=== PATIENT | female | born 1960 | race Caucasian/White ===

== ENCOUNTER 2020-04-30 06:49 | Day surgery (SDC) | payer OTHER, SELFPAY ==
[2020-04-26 09:58] VITALS: BMI 26.2
--- NOTE | 2020-04-27 12:47 | HO.ANESPROP2 ---
Documented by User: Aixa Ye 04/29/20 12:05 HPI - Anesthesia Eval Consult details Narrative: 59yo F for Colonoscopy PMFSH Past Medical History Medical History Bowel obstruction Elevated cholesterol HTN (hypertension) Surgical History Surgical History H/O colonoscopy History of cholecystectomy History of ear surgery History of laparotomy Social History Social History Smoking Status: Never smoker Advance Directives Information Provided: No Recently lost weight without trying: No Meds Allergies Allergy/AdvReac Type Severity Reaction Status Date / Time No Known Allergies Allergy Unverified 04/15/20 14:38 [No Known Allergies*] Home Medications Medication Instructions Recorded Confirmed Type amlodipine 10 mg PO DAILY 04/26/20 04/26/20 History atorvastatin 40 mg PO BEDTIME 04/26/20 04/26/20 History cetirizine 1 tab PO DAILY PRN 04/26/20 04/26/20 History cholecalciferol (vitamin D3) 25 mcg PO DAILY 04/26/20 04/26/20 History [Vitamin D3] lorazepam 1 mg PO BEDTIME PRN 04/26/20 04/26/20 History sennosides [senna] 8.6 mg PO DAILY 04/26/20 04/26/20 History tramadol 50 mg PO BID PRN 04/26/20 04/26/20 History trazodone 50 mg PO BEDTIME 04/26/20 04/26/20 History Exam Exam Date and Time: April 27, 2020 1247 Height,Weight and Vital Signs: Height 5 ft 3 in Weight 67.132 kg Pertinent Lab Results Pertinent Lab Results: 01/20/20 LYTES/BUN/CREAT/CBC = WNL 04/19/20 COVID RNA = NEG Assessment and Plan Assessment Anesthesia Assessment: Chart Reviewed (04/27/20 HT) Documented by User: Melissa Jarrell 04/30/20 08:37 [facility] Past Medical History Medical History Bowel obstruction Elevated cholesterol HTN (hypertension) Surgical History Surgical History H/O colonoscopy History of cholecystectomy History of ear surgery History of laparotomy Social History Social History Smoking Status: Never smoker Advance Directives Information Provided: No Recently lost weight without trying: No Meds Allergies Allergy/AdvReac Type Severity Reaction Status Date / Time No Known Allergies Allergy Unverified 04/15/20 14:38 [No Known Allergies*] Home Medications Medication Instructions Recorded Confirmed Type amlodipine 10 mg PO DAILY 04/26/20 04/26/20 History atorvastatin 40 mg PO BEDTIME 04/26/20 04/26/20 History cetirizine 1 tab PO DAILY PRN 04/26/20 04/26/20 History cholecalciferol (vitamin D3) 25 mcg PO DAILY 04/26/20 04/26/20 History [Vitamin D3] lorazepam 1 mg PO BEDTIME PRN 04/26/20 04/26/20 History sennosides [senna] 8.6 mg PO DAILY 04/26/20 04/26/20 History tramadol 50 mg PO BID PRN 04/26/20 04/26/20 History trazodone 50 mg PO BEDTIME 04/26/20 04/26/20 History Exam Airway Mallampati Class: II TM Dist: >3cm Neck ROM: Full Partial: Upper Heart: RRR Lungs: CTA Assessment and Plan Assessment Anesthesia Assessment: Anesthesia Plan Discussed Final Anesthetic Review NPO: Yes ASA Class: II Final Preanesthetic Review: No Changes in Pt Med Stat, Meds & Allergies Reviewed, Consent Obtained/Reviewed, Med/Surg/Anes Hx Reviewed and Anes Risks/Benef Reviewed Patient Risk: Low Procedure Risk: Low Anesthetic Plan Anesthetic Plan: MAC: Disposition: Standard PACU
[2020-04-30 06:59] VITALS: BP 116/84; PULSE 78; RESP 18; TEMP 36.1; O2SAT 97
[2020-04-30 09:30] VITALS: BP 149/92; PULSE 70; RESP 16; TEMP 36.5; O2SAT 98
--- NOTE | 2020-04-30 09:38 | PM.OP ---
Brief Operative Note Date of procedure: 04/30/20 Pre-op diagnosis: colon cancer screen Post-op diagnosis: other (normal colon) Procedure: colonoscopy Anesthesia: MAC Surgeon: Mann Loja Estimated blood loss (mL): 0 Pathology: none sent Condition: stable Disposition: PACU
[2020-04-30 09:47] VITALS: BP 150/91; PULSE 50; RESP 16; O2SAT 100
[2020-04-30 10:00] VITALS: BP 176/89; O2SAT 98
[2020-04-30 10:10] VITALS: BP 158/89; PULSE 53; RESP 16; O2SAT 99
[2020-04-30 10:15] VITALS: BP 151/81; PULSE 54; RESP 18; O2SAT 98
--- NOTE | 2020-04-30 10:49 | HO.POSTANES ---
Post Anesthesia Evaluation Post Anesthesia Evaluation Vital Signs: Vital Signs Temp Pulse Resp BP Pulse Ox 04/30/20 10:15 54 18 151/81 H 98 04/30/20 10:10 53 16 158/89 H 99 04/30/20 10:00 176/89 H 98 04/30/20 09:47 50 16 150/91 H 100 04/30/20 09:30 97.7 F 70 16 149/92 H 98 04/30/20 06:59 97 F 78 18 116/84 97 Anesthesia: Monitored Mental Status: Awake Pain Control: Satisfactory Nausea/Vomiting: None Hydration: Adequate Anesthesia-Related Issues: No Anes. Related Issues
--- NOTE | 2020-04-30 11:29 | OP_ITS ---
SURGEON: Mann Loja MD INDICATIONS: The patient is a 59-year-old female, here for colonoscopy for screening.. She understood the technique of the procedure. She was aware of the risks, benefits, and alternatives. PREOPERATIVE DIAGNOSIS: POSTOPERATIVE DIAGNOSIS: PROCEDURE PERFORMED: ESTIMATED BLOOD LOSS: COMPLICATIONS: ANESTHESIA: ASSISTANTS: SPECIMENS: DESCRIPTION OF PROCEDURE: She was brought to the operating room and placed in left lateral decubitus position under monitored anesthesia care. A full digital rectal exam was done. There were no palpable anal canal lesions. The tip of the Olympus colonoscope was introduced gently through the anal orifice and advanced with insufflation all the way to the cecum. The cecum was intubated. The cecum was identified by visualization of the ileocecal valve as well as the appendiceal orifice. The cecal mucosa unremarkable. The scope was gradually withdrawn and careful examination of the entire colonic mucosa being done with scope withdrawal. The patient unfortunately had significant amounts of watery stools scattered periodically throughout the colon. We had to copiously irrigate and suctioned out the irrigant fluid. However, the prep was actually better in the right colon and transverse colon. It was unlikely that any significant size lesion was missed. There was pool of liquid stool in the rectum and we had to spend a long time irrigating this and suctioned out the irrigant fluid to achieve good visualization. Again, there were no lesions seen. There were no polyps. The rectum and anal canal were unremarkable. The scope was then withdrawn completely with de-sufflation. The patient tolerated procedure well. There were no complications noted. However, because of her suboptimal bowel prep, I would recommend another colonoscopy in the next 5 years. MD MAYE Martinez/ROSENDAL / [phone]
== END 2020-04-30 10:51 | disposition home or self-care (01) ==
PROVIDERS: PCP Internal Medicine; Visit Provider Surgery
PROC: 0DJD8ZZ Inspection of Lower Intestinal Tract, Via Natural or Artificial Opening Endoscopic (ICD-10-PCS; CPT 45378; principal; 2020-04-30 08:00)
DX: Z12.11 Encounter for screening for malignant neoplasm of colon (principal); I10 Essential (primary) hypertension; E78.5 Hyperlipidemia, unspecified; Z79.899 Other long term (current) drug therapy; Z90.49 Acquired absence of other specified parts of digestive tract
CPT/HCPCS: 45378

== ENCOUNTER → 2020-05-12 11:39 | Outpatient (BNVA) | payer OTHER, SELFPAY | PROVIDERS: PCP Internal Medicine; Referring Provider Internal Medicine; Visit Provider Surgery | DX: Z98.890 Other specified postprocedural states (principal) | CPT/HCPCS: 99212 ==

== ENCOUNTER 2020-06-01 05:58 | Outpatient (REF) | payer OTHER, SELFPAY ==
[2020-06-01 06:51] LABS: MANUAL DIFF FLAG NO
[2020-06-01 06:52] LABS: Basophils Percent Auto 0.5 % (0-2); Eosinophils Absolute Auto 0.1 X10*3/uL (0.0-0.4); Eosinophils Percent Auto 2.1 % (0-4); Hematocrit 42.1 % (37-47); Hemoglobin 13.8 g/dl (12.0-16.0); Imm Gran Abs Auto 0.01 X10*3/uL (0.00-0.03); Imm Gran Pct Auto 0.2 % (0.0-0.4); Lymphocytes Absolute Auto 1.8 X10*3/uL (1.2-4.9); Lymphocytes Percent Auto 31.5 % (20-40); Mean Corpuscular HGB Conc 32.8 g/dl (31.0-35.0); Mean Corpuscular Hemoglobin 29.3 pg (27.0-33.0); Mean Corpuscular Volume 89.4 fL (80-98); Mean Platelet Volume 9.8 fL (9.4-12.3); Monocytes Absolute Auto 0.5 X10*3/uL (0.1-1.2); Monocytes Percent Auto 9.5 % (2-11); Neutrophils Absolute Auto 3.2 X10*3/uL (2.0-8.3); Neutrophils Percent Auto 56.2 % (45-73); Platelet Count 290 X10*3/uL (160-400); Red Blood Count 4.71 X10*6/uL (4.20-5.50); Red Cell Distribution Width 15.3 % (11.0-16.0); White Blood Count 5.7 X10*3/uL (4.8-10.8)
[2020-06-01 07:01] LABS: Glucose Urine UA NEG (NEG); Leukocyte Esterase Urine 2+ (NEG); Nitrite Urine NEG (NEG); Specific Gravity - Urine 1.025 (1.005-1.025); Urine Blood TRACE (NEG); Urine Ketones NEG (NEG); Urine Protein NEG (NEG-TRACE)
[2020-06-01 07:09] LABS: Appearance Urine HAZY; Color Urine YELLOW
[2020-06-01 07:16] LABS: Bacteria Urine 1+ /LPF; Mucus Urine 1+ /LPF; Renal Epithelial Cells Urine 1+ /LPF; Squamous Epithelial Cell Urine 2+ /LPF
[2020-06-01 07:42] LABS: Vitamin D 25-OH Total 44.5 ng/mL (>30)
[2020-06-01 07:43] LABS: Alanine Aminotransferase 18 U/L (0-31); Albumin Level 4.2 g/dL (3.5-5.0); Alkaline Phosphatase 97 U/L (39-117); Amylase 177 U/L (28-100); Anion Gap 11 (12-20); Aspartate Amino Transferase 18 U/L (5-31); Bilirubin Total 0.6 mg/dL (0.0-1.0); Blood Urea Nitrogen 16 mg/dL (9-16); Calcium 8.6 mg/dL (8.4-10.2); Carbon Dioxide 27 mmol/L (22-29); Chloride 108 mmol/L (96-108); Cholesterol 158 mg/dL; Estimated Glomerular Filt Rate > 60; Glucose Fasting 88 mg/dL (60-99); HDL Cholesterol 57 mg/dL; LDL Cholesterol Calculated 93 mg/dl; Potassium 4.6 mmol/l (3.3-5.1); Sodium 141 mmol/L (135-145); Total Protein 6.9 g/dL (6.5-8.0); Triglycerides 41 mg/dL
== END 2020-06-01 05:59 | disposition home or self-care (01) ==
LOC: HO.LAB 05:58
PROVIDERS: PCP Internal Medicine; Visit Provider Internal Medicine
DX: E78.5 Hyperlipidemia, unspecified (principal); I10 Essential (primary) hypertension; L29.9 Pruritus, unspecified; R79.89 Other specified abnormal findings of blood chemistry; R74.8 Abnormal levels of other serum enzymes; K59.00 Constipation, unspecified; N39.0 Urinary tract infection, site not specified; E55.9 Vitamin D deficiency, unspecified
CPT/HCPCS: 36415; 80053; 80061; 81001; 82150; 82306; 85025; 87086

== ENCOUNTER 2020-08-04 13:59 | Outpatient (REF) | payer OTHER, SELFPAY ==
--- NOTE | 2020-08-04 14:01 | US_ITS ---
EXAMINATION: US RETROPERITONEAL LIMITED (RENAL ONLY) CLINICAL INFORMATION: Pyuria. COMPARISON: Ultrasound abdomen complete 12/11/2012. TECHNIQUE: Real-time imaging of the kidneys. FINDINGS: RIGHT KIDNEY: 9.4x 5.6 x 5.4 cm (SAG x AP x TRV). The kidney is normal in size, contour, and echogenicity. Renal cortical thickness is normal. There are multiple at least 6 right renal cysts. The largest cysts are in the upper pole and measures 4.1 x 3.5 x 4 cm and 3.1 x 3.5 x 3.8 cm in the midpole. This appears increased in size from November 2012 ultrasound. No renal calculi or hydronephrosis. LEFT KIDNEY: 10.6 x 5.0 x 4.4 cm (SAG x AP x TRV). The kidney is normal in size, contour, and echogenicity. Renal cortical thickness is normal. There is a 1.3 x 1.3 x 1.6 cm cyst in the midpole. No renal calculi or hydronephrosis. US/US renal BI IMPRESSION: Bilateral renal cysts, right greater than left. No stone or hydronephrosis seen.
== END 2020-08-04 14:00 | disposition home or self-care (01) ==
LOC: HO.US 13:59
PROVIDERS: PCP Internal Medicine; Visit Provider Internal Medicine
DX: R82.81 Pyuria (principal); R31.21 Asymptomatic microscopic hematuria
CPT/HCPCS: 76775

== ENCOUNTER 2020-09-01 05:59 | Outpatient (REF) | payer OTHER, SELFPAY ==
[2020-09-01 07:08] LABS: MANUAL DIFF FLAG NO
[2020-09-01 07:09] LABS: Glucose Urine UA NEG (NEG); Leukocyte Esterase Urine 3+ (NEG); Nitrite Urine NEG (NEG); Specific Gravity - Urine 1.025 (1.005-1.025); UACC Culture Trigger YES; Urine Blood TRACE (NEG); Urine Ketones NEG (NEG); Urine Protein NEG (NEG-TRACE)
[2020-09-01 07:10] LABS: Appearance Urine CLOUDY; Color Urine YELLOW
[2020-09-01 07:11] LABS: Basophils Percent Auto 0.6 % (0-2); Eosinophils Absolute Auto 0.2 X10*3/uL (0.0-0.4); Eosinophils Percent Auto 2.6 % (0-4); Hematocrit 43.3 % (37-47); Hemoglobin 14.2 g/dl (12.0-16.0); Imm Gran Abs Auto 0.01 X10*3/uL (0.00-0.03); Imm Gran Pct Auto 0.2 % (0.0-0.4); Lymphocytes Absolute Auto 2.4 X10*3/uL (1.2-4.9); Lymphocytes Percent Auto 38.9 % (20-40); Mean Corpuscular HGB Conc 32.8 g/dl (31.0-35.0); Mean Corpuscular Hemoglobin 28.8 pg (27.0-33.0); Mean Corpuscular Volume 87.8 fL (80-98); Mean Platelet Volume 10.4 fL (9.4-12.3); Monocytes Absolute Auto 0.5 X10*3/uL (0.1-1.2); Monocytes Percent Auto 8.6 % (2-11); Neutrophils Percent Auto 49.1 % (45-73); Platelet Count 306 X10*3/uL (160-400); Red Blood Count 4.93 X10*6/uL (4.20-5.50); Red Cell Distribution Width 14.8 % (11.0-16.0); White Blood Count 6.2 X10*3/uL (4.8-10.8)
[2020-09-01 07:20] LABS: Bacteria Urine 2+ /LPF; Mucus Urine 1+ /LPF; RBC Urine 0-2 /HPF (0); Squamous Epithelial Cell Urine 2+ /LPF
[2020-09-01 07:36] LABS: Alanine Aminotransferase 22 U/L (0-31); Albumin Level 4.4 g/dL (3.5-5.0); Alkaline Phosphatase 117 U/L (39-117); Amylase 347 U/L (28-100); Anion Gap 12 (12-20); Aspartate Amino Transferase 20 U/L (5-31); Bilirubin Total 0.8 mg/dL (0.0-1.0); Blood Urea Nitrogen 11 mg/dL (9-16); Calcium 9.4 mg/dL (8.4-10.2); Carbon Dioxide 28 mmol/L (22-29); Chloride 106 mmol/L (96-108); Cholesterol 158 mg/dL; Estimated Glomerular Filt Rate > 60; Glucose Fasting 84 mg/dL (60-99); HDL Cholesterol 52 mg/dL; LDL Cholesterol Calculated 96 mg/dl; Potassium 4.6 mmol/L (3.3-5.1); Sodium 141 mmol/L (135-145); Total Protein 7.3 g/dL (6.5-8.0); Triglycerides 53 mg/dL
[2020-09-01 07:56] LABS: TSH reflex Free T4 1.63 uIU/mL (0.32-4.0); Vitamin D 25-OH Total 40.2 ng/mL (>30)
== END 2020-09-01 06:00 | disposition home or self-care (01) ==
LOC: HO.LAB 05:59
PROVIDERS: Visit Provider Internal Medicine
DX: I10 Essential (primary) hypertension (principal); R74.8 Abnormal levels of other serum enzymes; L29.9 Pruritus, unspecified; K58.9 Irritable bowel syndrome, unspecified; R31.21 Asymptomatic microscopic hematuria; E78.00 Pure hypercholesterolemia, unspecified; E66.3 Overweight; I87.2 Venous insufficiency (chronic) (peripheral); E55.9 Vitamin D deficiency, unspecified; R79.89 Other specified abnormal findings of blood chemistry
CPT/HCPCS: 36415; 80053; 80061; 81001; 81003; 82150; 82306; 84443; 85025; 87086

== ENCOUNTER 2020-11-15 09:31 | Outpatient (REF) | payer OTHER, SELFPAY ==
[2020-11-15 09:52] LABS: COVID-19 Test Negative (Negative); IDNOW Serial# 55D5AD1C
== END 2020-11-15 09:32 | disposition home or self-care (01) ==
LOC: HO.LAB 09:31
PROVIDERS: Visit Provider Internal Medicine
DX: Z20.822 Contact with and (suspected) exposure to COVID-19 (principal)
CPT/HCPCS: 36415; 87635; C9803

== ENCOUNTER 2021-02-01 08:49 | Outpatient (REF) | payer OTHER, SELFPAY ==
--- NOTE | ~2021-02-01 | MM_ITS ---
EXAMINATION: MM SCREENING DIGITAL BREAST TOMOSYNTHESIS, BILATERAL CLINICAL INFORMATION: Screening. Asymptomatic. The lifetime risk of breast cancer based on the Tyrer-Cuzick Model is 4.6%. COMPARISON: Mammography: January 30, 2020 and studies dating back to November 27, 2015 TECHNIQUE: Digital breast tomosynthesis is performed in both the craniocaudal and mediolateral oblique views along with computer-aided detection (CAD). Synthesized 2D images are generated from the tomosynthesis. FINDINGS: The breasts are heterogeneously dense, which may obscure small masses (ACR BI-RADS breast composition Category c). There are no significant masses, abnormal calcifications, or other abnormalities. MM/MM tomosynthesis screening BI IMPRESSION: There are no significant changes from prior study. ASSESSMENT: BI-RADS 1: Negative RECOMMENDATION: Routine annual mammography screening. This patient's information was entered into a reminder system with a target due date for their next mammogram.
== END 2021-02-01 08:50 | disposition home or self-care (01) ==
LOC: HO.MAMMO 08:49
PROVIDERS: PCP Internal Medicine; Visit Provider Internal Medicine
DX: Z12.31 Encounter for screening mammogram for malignant neoplasm of breast (principal)
CPT/HCPCS: 77063; 77067

== ENCOUNTER 2021-03-07 05:57 | Outpatient (REF) | payer OTHER, SELFPAY ==
[2021-03-07 06:35] LABS: MANUAL DIFF FLAG NO
[2021-03-07 06:46] LABS: Basophils Percent Auto 0.6 % (0-2); Eosinophils Absolute Auto 0.2 X10*3/uL (0.0-0.4); Eosinophils Percent Auto 2.4 % (0-4); Hematocrit 41.8 % (37-47); Hemoglobin 13.7 g/dl (12.0-16.0); Imm Gran Abs Auto 0.02 X10*3/uL (0.00-0.03); Imm Gran Pct Auto 0.3 % (0.0-0.4); Lymphocytes Absolute Auto 2.2 X10*3/uL (1.2-4.9); Lymphocytes Percent Auto 35.1 % (20-40); Mean Corpuscular HGB Conc 32.8 g/dl (31.0-35.0); Mean Corpuscular Volume 88.6 fL (80-98); Mean Platelet Volume 9.8 fL (9.4-12.3); Monocytes Absolute Auto 0.6 X10*3/uL (0.1-1.2); Monocytes Percent Auto 9.4 % (2-11); Neutrophils Absolute Auto 3.2 X10*3/uL (2.0-8.3); Neutrophils Percent Auto 52.2 % (45-73); Platelet Count 318 X10*3/uL (160-400); Red Blood Count 4.72 X10*6/uL (4.20-5.50); Red Cell Distribution Width 14.9 % (11.0-16.0); White Blood Count 6.2 X10*3/uL (4.8-10.8)
[2021-03-07 07:07] LABS: Alanine Aminotransferase 24 U/L (0-31); Albumin Level 4.4 g/dL (3.5-5.0); Alkaline Phosphatase 115 U/L (39-117); Amylase 182 U/L (28-100); Anion Gap 13 (12-20); Aspartate Amino Transferase 20 U/L (5-31); Bilirubin Total 0.2 mg/dL (0.0-1.0); Blood Urea Nitrogen 12 mg/dL (9-16); Calcium 9.6 mg/dL (8.4-10.2); Carbon Dioxide 27 mmol/L (22-29); Chloride 106 mmol/L (96-108); Cholesterol 163 mg/dL; Estimated Glomerular Filt Rate > 60; Glucose Fasting 90 mg/dL (60-99); HDL Cholesterol 51 mg/dL; LDL Cholesterol Calculated 100 mg/dl; Potassium 4.4 mmol/L (3.3-5.1); Sodium 142 mmol/L (135-145); Total Protein 7.2 g/dL (6.5-8.0); Triglycerides 61 mg/dL
[2021-03-07 07:28] LABS: TSH reflex Free T4 1.17 uIU/mL (0.32-4.0); Vitamin D 25-OH Total 48.9 ng/mL (>30)
[2021-03-07 10:03] LABS: Glucose Urine UA NEG (NEG); Leukocyte Esterase Urine 2+ (NEG); Nitrite Urine NEG (NEG); UACC Culture Trigger YES; Urine Blood NEG (NEG); Urine Ketones NEG (NEG); Urine Protein NEG (NEG-TRACE)
[2021-03-07 10:06] LABS: Appearance Urine HAZY; Color Urine YELLOW
[2021-03-07 10:51] LABS: Bacteria Urine 1+ /LPF; Mucus Urine 1+ /LPF; RBC Urine 0 /HPF (0); Renal Epithelial Cells Urine TRACE /LPF; Squamous Epithelial Cell Urine 2+ /LPF
== END 2021-03-07 05:58 | disposition home or self-care (01) ==
LOC: HO.LAB 05:57
PROVIDERS: PCP Internal Medicine; Visit Provider Internal Medicine
DX: I10 Essential (primary) hypertension (principal); K58.9 Irritable bowel syndrome, unspecified; K59.00 Constipation, unspecified; L29.9 Pruritus, unspecified; R31.21 Asymptomatic microscopic hematuria; E78.00 Pure hypercholesterolemia, unspecified; R79.89 Other specified abnormal findings of blood chemistry; E55.9 Vitamin D deficiency, unspecified; E66.3 Overweight; R74.8 Abnormal levels of other serum enzymes
CPT/HCPCS: 36415; 80053; 80061; 81001; 81003; 82150; 82306; 84443; 85025; 87086

== ENCOUNTER 2021-05-12 09:17 | Outpatient (REF) | payer OTHER, SELFPAY ==
[2021-05-17 17:12] LABS: HPV mRNA E6/E7 rflx Not Detected (Not Detected)
== END 2021-05-12 09:18 | disposition home or self-care (01) ==
LOC: HO.LAB 09:17
PROVIDERS: Visit Provider Obstetrics & Gynecology
DX: Z01.419 Encounter for gynecological examination (general) (routine) without abnormal findings (principal); Z11.51 Encounter for screening for human papillomavirus (HPV)
CPT/HCPCS: 87624; 88142

== ENCOUNTER 2021-08-17 09:09 | Outpatient (REF) | payer OTHER, SELFPAY ==
--- NOTE | ~2021-08-17 | MM_ITS ---
EXAMINATION: BONE DENSITOMETRY CLINICAL INDICATION: Osteopenia. COMPARISON: Baseline BD dated 12/01/2016. TECHNIQUE: Using a Contorion DXA System (software version: 13.1) manufactured by [employer], dual-energy x-ray absorptiometry was performed of the lumbar spine and left hip. The images are of good technical quality. Summary results are attached. FINDINGS: AP SPINE L1-L4: Current: BMD 0.977 g/cm2, Z-score -0.3, T-score -1.7, osteopenia, 2.5% decrease from baseline (<5% change is not significant). Baseline: BMD 1.002 g/cm2. LEFT FEMUR, NECK: Current: BMD 0.781 g/cm2, Z-score -0.5, T-score -1.8, osteopenia. Baseline: BMD 0.924 g/cm2. LEFT FEMUR, TOTAL: Current: BMD 0.852 g/cm2, Z-score -0.2, T-score -1.2, osteopenia, 8.0% decrease from baseline (<5% change is not significant). Baseline: BMD 0.926 g/cm2. IDENTIFIED RISK FACTORS: Early menopause, low calcium intake, secondary osteoporosis. HISTORY OF FRACTURE: None listed. MEDICATIONS: Calcium, vitamin D. MM/XR DEXA axial skeleton IMPRESSION: 1. DIAGNOSIS: Osteopenia based on the lowest T-score value of -1.8 in the femoral neck applying World Health Organization criteria. 2. 10-YEAR FRACTURE RISK PREDICTION, FRAX: Major osteoporotic fracture (clinical spine, forearm, hip or shoulder) 5.4%. Hip fracture 0.6%. 3. Treatment Recommendations: NOF guidelines recommend consideration for treatment in postmenopausal women and men age 50 and older presenting with the following: -A hip or vertebral (clinical or morphometric) fracture. -T-score less than or equal to -2.5 at the femoral neck or spine after appropriate evaluation to exclude secondary causes. -Low bone mass at the hip or spine and a 10-year fracture probability by FRAX of greater than or equal to 3% for hip fracture or greater than or equal to 20% for major osteoporotic fracture based on the [place] adapted WHO algorithm. 4. Other Recommendations: All treatment decisions require clinical judgment and consideration of individual patient factors, including patient preferences, comorbidities, previous drug use, risk factors not captured in the FRAX model (e.g. frailty, falls, vitamin D deficiency, increased bone turnover, interval significant decline in bone density) and possible under or overestimation of fracture risk by FRAX. Additional medical evaluation for secondary cause of low bone mineral density may be appropriate. FUTURE SCAN RECOMMENDATION: People with diagnosed cases of osteoporosis or at high risk for fracture should have regular bone mineral density tests. For patients eligible for Medicare, routine testing is allowed once every 2 years. The testing frequency can be increased to one year for patients who have rapidly progressing disease, those who are receiving or discontinuing medical therapy to restore bone mass, or have additional risk factors.
== END 2021-08-17 09:10 | disposition home or self-care (01) ==
LOC: HO.MAMMO 09:09
PROVIDERS: PCP Internal Medicine; Visit Provider Internal Medicine
DX: Z13.820 Encounter for screening for osteoporosis (principal); M85.80 Other specified disorders of bone density and structure, unspecified site; N95.1 Menopausal and female climacteric states; Z79.899 Other long term (current) drug therapy
CPT/HCPCS: 77080

== ENCOUNTER 2021-11-11 05:56 | Outpatient (REF) | payer OTHER, SELFPAY ==
[2021-11-11 06:09] LABS: MANUAL DIFF FLAG NO
[2021-11-11 07:30] LABS: Basophils Percent Auto 0.5 % (0-2); Eosinophils Absolute Auto 0.2 X10*3/uL (0.0-0.4); Eosinophils Percent Auto 3.7 % (0-4); Hematocrit 43.4 % (37.0-47.0); Hemoglobin 14.2 g/dl (12.0-16.0); Imm Gran Abs Auto 0.01 X10*3/uL (0.00-0.03); Imm Gran Pct Auto 0.2 % (0.0-0.4); Lymphocytes Percent Auto 32.6 % (20-40); Mean Corpuscular HGB Conc 32.7 g/dl (31.0-35.0); Mean Corpuscular Hemoglobin 28.6 pg (27.0-33.0); Mean Corpuscular Volume 87.5 fL (80.0-98.0); Mean Platelet Volume 9.8 fL (9.4-12.3); Monocytes Absolute Auto 0.6 X10*3/uL (0.1-1.2); Neutrophils Absolute Auto 3.3 x10*3/uL (2.0-8.3); Platelet Count 344 X10*3/uL (160-400); Red Blood Count 4.96 X10*6/uL (4.20-5.50); Red Cell Distribution Width 15.3 % (11.0-16.0); White Blood Count 6.2 X10*3/uL (4.8-10.8)
[2021-11-11 07:31] LABS: Appearance Urine CLEAR; Color Urine YELLOW; Glucose Urine UA NEG (NEG); Leukocyte Esterase Urine 2+ (NEG); Nitrite Urine NEG (NEG); UACC Culture Trigger YES; Urine Blood NEG (NEG); Urine Ketones NEG (NEG); Urine Protein NEG (NEG-TRACE)
[2021-11-11 08:00] LABS: Alanine Aminotransferase 62 U/L (0-31); Albumin Level 4.4 g/dL (3.5-5.0); Alkaline Phosphatase 166 U/L (39-117); Anion Gap 13 (12-20); Aspartate Amino Transferase 36 U/L (5-31); Bilirubin Total 0.4 mg/dL (0.0-1.0); Blood Urea Nitrogen 18 mg/dL (9-16); Calcium 9.6 mg/dL (8.4-10.2); Carbon Dioxide 26 mmol/L (22-29); Chloride 105 mmol/L (96-108); Cholesterol 204 mg/dL; Estimated Glomerular Filt Rate > 60; Glucose Fasting 90 mg/dL (60-99); HDL Cholesterol 53 mg/dL; LDL Cholesterol Calculated 140 mg/dl; Potassium 4.5 mmol/L (3.3-5.1); Sodium 139 mmol/L (135-145); Total Protein 7.5 g/dL (6.5-8.0); Triglycerides 55 mg/dL
[2021-11-11 08:07] LABS: Amylase 440 U/L (28-100); TSH reflex Free T4 1.15 uIU/mL (0.32-4.0); Vitamin D 25-OH Total 43.5 ng/mL (>30)
[2021-11-11 08:08] LABS: Bacteria Urine 1+ /LPF; RBC Urine 0 /HPF (0); Squamous Epithelial Cell Urine 2+ /LPF
== END 2021-11-11 05:57 | disposition home or self-care (01) ==
LOC: HO.LAB 05:56
PROVIDERS: PCP Internal Medicine; Visit Provider Internal Medicine
DX: E78.00 Pure hypercholesterolemia, unspecified (principal); E55.9 Vitamin D deficiency, unspecified; N18.30 Chronic kidney disease, stage 3 unspecified; R74.8 Abnormal levels of other serum enzymes
CPT/HCPCS: 36415; 80053; 80061; 81001; 82150; 82306; 84443; 85025; 87086

== ENCOUNTER 2022-01-13 07:30 | Outpatient (REF) | payer OTHER, SELFPAY ==
--- NOTE | ~2022-01-13 | US_ITS ---
EXAMINATION: US ABDOMEN COMPLETE CLINICAL INFORMATION: Elevated LFTs. COMPARISON: Renal ultrasound 08/04/2020. Ultrasound abdomen complete 12/11/2012. TECHNIQUE: Real-time imaging of the abdominal viscera. FINDINGS: PANCREAS: Normal in size and contour and echogenicity. No pancreatic ductal tension. No retroperitoneal effusion. ABDOMINAL AORTA: The proximal, mid, and distal segments are normal in caliber. INFERIOR VENA CAVA: Visualized portions are normal. LIVER: Liver is smooth in contour, normal in size, and uniform in echogenicity. No focal hepatic parenchymal lesion. No intrahepatic biliary ductal dilatation. GALLBLADDER: Surgically absent. COMMON BILE DUCT: Normal in caliber measuring 0.7 cm in diameter. No ductal calculus or sludge. RIGHT KIDNEY: 10.3 cm in length. No hydronephrosis or visible calculi. Normal parenchymal thickness and echogenicity. There are multiple simple cysts again seen largest upper pole 4.8 cm and interpolar 3.2 cm. No additional imaging follow-up required. LEFT KIDNEY: 10.2 cm in length. No hydronephrosis or visible calculi. Normal parenchymal thickness and echogenicity. Interpolar simple cyst again seen measuring approximately 1.6 cm. No additional imaging follow-up required. SPLEEN: Normal. The spleen measures 8.8 cm in maximum dimension. FREE FLUID: None. US/US abdomen complete IMPRESSION: -Prior cholecystectomy. No ductal dilatation. -Liver, pancreas, spleen normal. No hydronephrosis.
== END 2022-01-13 07:31 | disposition home or self-care (01) ==
LOC: HO.US 07:30
PROVIDERS: PCP Internal Medicine; Visit Provider Internal Medicine
DX: R79.89 Other specified abnormal findings of blood chemistry (principal)
CPT/HCPCS: 76700

== ENCOUNTER 2022-02-03 10:35 | Outpatient (REF) | payer OTHER, SELFPAY ==
--- NOTE | ~2022-02-03 | MM_ITS ---
EXAMINATION: MM SCREENING DIGITAL BREAST TOMOSYNTHESIS, BILATERAL CLINICAL INFORMATION: Screening. Asymptomatic. The lifetime risk of breast cancer based on the Tyrer-Cuzick Model is 6%. COMPARISON: Mammography: 02/01/2021, 01/30/2020, 01/27/2020, 01/21/2019 TECHNIQUE: Digital breast tomosynthesis is performed in both the craniocaudal and mediolateral oblique views along with computer-aided detection (CAD). Synthesized 2D images are generated from the tomosynthesis. FINDINGS: The breasts are heterogeneously dense, which may obscure small masses (ACR BI-RADS breast composition Category c). There are no significant masses, abnormal calcifications, or other abnormalities. Parenchymal pattern is similar to prior studies. The axilla and skin contours are unremarkable. No significant changes. MM/MM tomosynthesis screening BI IMPRESSION: No mammographic evidence of malignancy. ASSESSMENT: BI-RADS 1: Negative RECOMMENDATION: Routine annual mammography screening. This patient's information was entered into a reminder system with a target due date for their next mammogram.
== END 2022-02-03 10:36 | disposition home or self-care (01) ==
LOC: HO.MAMMO 10:35
PROVIDERS: Visit Provider Internal Medicine
DX: Z12.31 Encounter for screening mammogram for malignant neoplasm of breast (principal)
CPT/HCPCS: 77063; 77067

== ENCOUNTER 2022-03-16 21:53 | Emergency (ER) | payer OTHER, SELFPAY ==
[2022-03-16 22:11] VITALS: BP 103/75; PULSE 77; RESP 18; TEMP 36.9; O2SAT 97; BMI 24.7
[2022-03-16 22:34] LABS: MANUAL DIFF FLAG NO
[2022-03-16 22:35] LABS: Basophils Percent Auto 0.3 % (0-2); Eosinophils Absolute Auto 0.1 X10*3/uL (0.0-0.4); Eosinophils Percent Auto 1.3 % (0-4); Hematocrit 41.6 % (37.0-47.0); Imm Gran Abs Auto 0.02 X10*3/uL (0.00-0.03); Imm Gran Pct Auto 0.3 % (0.0-0.4); Lymphocytes Absolute Auto 1.5 X10*3/uL (1.2-4.9); Lymphocytes Percent Auto 21.6 % (20-40); Mean Corpuscular HGB Conc 33.7 g/dl (31.0-35.0); Mean Corpuscular Hemoglobin 28.7 pg (27.0-33.0); Mean Corpuscular Volume 85.2 fL (80.0-98.0); Mean Platelet Volume 9.2 fL (9.4-12.3); Monocytes Absolute Auto 0.9 X10*3/uL (0.1-1.2); Monocytes Percent Auto 13.9 % (2-11); Neutrophils Absolute Auto 4.2 x10*3/uL (2.0-8.3); Neutrophils Percent Auto 62.6 % (45-73); Platelet Count 270 X10*3/uL (160-400); Red Blood Count 4.88 X10*6/uL (4.20-5.50); Red Cell Distribution Width 15.9 % (11.0-16.0); White Blood Count 6.8 X10*3/uL (4.8-10.8)
[2022-03-16 22:50] LABS: COVID-19 Test Positive (Negative); IDNOW Serial# 16C4AD1C
[2022-03-16 22:54] LABS: Anion Gap 15 (12-20); Blood Urea Nitrogen 12 mg/dL (9-16); Calcium 8.7 mg/dL (8.4-10.2); Carbon Dioxide 24 mmol/L (22-29); Chloride 105 mmol/L (96-108); Estimated Glomerular Filt Rate > 60; Glucose Random 99 mg/dL (60-115); Potassium 3.5 mmol/L (3.3-5.1); Sodium 140 mmol/L (135-145)
--- NOTE | 2022-03-16 22:55 | ED_ITS ---
HPI - General Adult General Chief complaint: Headache Stated complaint: Headache Time Seen by Provider: 03/16/22 22:53 Source: patient Mode of arrival: ambulatory Limitations: no limitations History of Present Illness HPI narrative: This is a 61-year-old female history of depression, migraine headache, central hypertension presenting to the emergency department with sudden onset body aches, fatigue, malaise, subjective fevers and chills, headache which feels like her typical without vision changes, dizziness head trauma, facial congestion x2 days. Denies sick contacts. Vaccinated with 3 COVID shots. Denies chest pain, shortness of breath, nausea, vomiting, abdominal pain, vision changes, dizziness or weakness. Related Data Previous Rx's Medication Instructions Recorded triamcinolone acetonide 0.5 % 1 appl topical BID 14 days #15 06/02/21 topical cream grams trazodone 50 mg tablet 50 mg PO BEDTIME PRN for insomnia 10/11/21 #90 tabs ergocalciferol (vitamin D2) 1,250 1,250 mcg PO QWEEK #5 caps 01/09/22 mcg (50,000 unit) capsule amlodipine 10 mg tablet 10 mg PO DAILY #90 tabs 01/10/22 atorvastatin 40 mg tablet 40 mg PO BEDTIME 90 days #90 tabs 01/16/22 clotrimazole-betamethasone 1 1 appl topical BID 2 weeks #45 01/16/22 %-0.05 % topical cream grams Allergies Allergy/AdvReac Type Severity Reaction Status Date / Time No Known Allergies Allergy Verified 03/16/22 22:11 [No Known Allergies*] Review of Systems Review of Systems: Constitutional : No Weight loss, + Fever, + Chills, + Fatigue, + Malaise ENT/Mouth : No sore throat, No Rhinorrhea, + congestion Eyes: No Eye Pain, No Swelling, No Redness Cardiovascular : No Chest Pain, No SOB, No Dyspnea on Exertion, No Orthopnea, No Edema, No Palpitations Respiratory : No Cough, No Sputum, No Wheezing Gastrointestinal : No Nausea, No Vomiting, No Diarrhea, No Constipation, No abdominal Pain, No Hematochezia, No Melena Genitourinary : No Dysuria, No Urinary Frequency, No Hematuria, Musculoskeletal : No joint pain, No Myalgias, No Joint Swelling Skin : No Skin Lesions, No rash Neuro : No Weakness, No Numbness, No Dizziness, + Headache Psych : No Anxiety/Panic, No Depression All other systems reviewed and are negative Yes all other systems are reviewed and are negative [facility] Past Medical History Attestation statement: The following information was validated with the patient. Source: old records reviewed and nursing notes reviewed Medical History ASCUS of cervix with negative high risk HPV Asymptomatic microscopic hematuria Benign essential hypertension Bowel obstruction Calcaneal spur Carpal tunnel syndrome of right wrist Colon cancer screening Constipation Degenerative arthritis of right knee Depression Edema of lower extremity due to peripheral venous insufficiency Elevated cholesterol Elevated LFTs Generalized pruritus HTN (hypertension) Hyperamylasemia Insomnia Irritable bowel syndrome Migraine Osteopenia Overweight (BMI 25.0-29.9) Pure hypercholesterolemia Pyuria Tinea corporis Vitamin D deficiency Surgical History H/O colonoscopy (~07/26/10) History of cholecystectomy History of ear surgery History of laparotomy History of tubal ligation Family History Family History Father Medical history unknown Mother Hypertension Son No problems noted. Social History Social History Housing: House Alcohol intake: never Patient Tobacco Use Status: Never used Tobacco e-Cigarette/Vaping Use: Never Used Second Hand Smoke Exposure: No service: No Current occupational status: retired Cognitive needs: No Hearing needs: No Vision needs: Yes Physical Exam ED Vital Signs: Vital Signs - 24 hr 03/16/22 22:11 Temperature 98.4 F Pulse Rate 77 Respiratory Rate 18 Blood Pressure 103/75 Pulse Oximetry 97 Oxygen Delivery Method Room Air BMI result Body Mass Index 24.7 Vital signs stable. Appearance: Alert.? Oriented X3.? No acute distress.? Head: Normocephalic, atraumatic, no step-offs or deformities Eyes: Pupils equal, round and reactive to light.? ENT: Pharynx normal.? Neck: Normal inspection.? Neck supple.? CVS: Normal heart rate and rhythm.? Pulses normal.? Respiratory: No respiratory distress.? Breath sounds normal.? Abdomen: Soft and nontender.? Skin: Skin warm and dry.? Normal skin color.? Normal skin turgor.? Extremities: No lower extremity edema.? No calf ttp. 5/5 strength to bilateral upper and lower extremities Back: No midline tenderness, no C-spine tenderness, full range of motion, no CVA tenderness bilaterally Neuro: Oriented X 3.? No motor deficit.? No sensory deficit. CN 2-12 intact . Patient ambulating with steady gait. Course Reevaluation(s) Reevaluation #1: CBC within normal limits, chemistry with no acute electrolyte abnormalities. Patient is noted to be COVID positive. Discussed CDC guidelines with patient, outline is on her discharge. Advised her to follow-up with her PCP to discuss starting Paxlovid as she is on medications that may interact w/ medication (trazadone,amlodipie,atorvastatin) . At this time patient will be discharged home. Comfortable discharge Time: 22:58 Medical Decision Making [facility] Narrative Medical decision making narrative: [id number] 61-year-old female presenting with headache, body aches, malaise, fatigue and nasal congestion for a day worsening. Denies recent sick contacts. Physical examination benign. Vital signs are stable. Likely viral in origin. Will rule out COVID-19. No signs of PE or ACS, patient does not have chest pain or shortness of breath. Lungs are clear no signs of pneumonia. Normal cerebellar function in neurological function on likely ICH or posterior stroke. Plan at this time is basic labs, COVID test Medical Records Medical records reviewed: Yes I reviewed the patient's medical records. Lab Data Lab results reviewed: Yes I reviewed the patient's lab results. Result diagrams: 03/16/22 22:29 03/16/22 22:29 Labs: Lab Results 03/16/22 03/16/22 03/16/22 Range/Units 22:29 22:29 22:29 WBC 6.8 (4.8-10.8) X10*3/uL RBC 4.88 (4.20-5.50) X10*6/uL Hgb 14.0 (12.0-16.0) g/dl Hct 41.6 (37.0-47.0) % MCV 85.2 (80.0-98.0) fL MCH 28.7 (27.0-33.0) pg MCHC 33.7 (31.0-35.0) g/dl RDW 15.9 (11.0-16.0) % Plt Count 270 (160-400) X10*3/uL MPV 9.2 L (9.4-12.3) fL Immature Gran % (Auto) 0.3 (0.0-0.4) % Neut % (Auto) 62.6 (45-73) % Lymph % (Auto) 21.6 (20-40) % Kidder % (Auto) 13.9 H (2-11) % Eos % (Auto) 1.3 (0-4) % Baso % (Auto) 0.3 (0-2) % Lymph # (Auto) 1.5 (1.2-4.9) X10*3/uL Kidder # (Auto) 0.9 (0.1-1.2) X10*3/uL Eos # (Auto) 0.1 (0.0-0.4) X10*3/uL Baso # (Auto) 0.0 (0.0-0.2) X10*3/uL Abs Immat Gran (auto) 0.02 (0.00-0.03) X10*3/uL Absolute Neuts (auto) 4.2 (2.0-8.3) x10*3/uL Absolute Nucleated RBC 0.000 (0.0-0.012) X10*3/uL Nucleated RBC % (auto) 0.0 (0.0-0.2) /100WBC Sodium 140 (135-145) mmol/L Potassium 3.5 D (3.3-5.1) mmol/L Chloride 105 (96-108) mmol/L Carbon Dioxide 24 (22-29) mmol/L Anion Gap 15 (12-20) BUN 12 (9-16) mg/dL Creatinine 0.83 (0.5-1.4) mg/dL Estim Creat Clear Calc 63.0 Estimated GFR > 60 Random Glucose 99 (60-115) mg/dL Calcium 8.7 D (8.4-10.2) mg/dL COVID-19 (HAILY) Positive A (Negative) COVID-19 Clin Com See Note Critical Care Time Critical Care Time Critical Care Time: No Discharge Plan Discharge Clinical Impression: COVID-19, Headache Patient Disposition: Home, Self-Care Instructions: COVID-19 (Coronavirus Disease 2019) (ED) Additional Instructions: Take your medications as prescribed. If you were prescribed antibiotics today, it is important that you take your medication to their entirety, do not skip any doses, do not finish them early. Today you tested positive for COVID-19. Take Ibuprofen or Tylenol as needed for fevers or body aches. Quarantine for 5 days and ensure you wear a mask. After 5 days you should wear a mask for 5 days after that. Practice social distancing and good hand hygiene. Drink plenty of fluids. Follow-up with your primary care provider this week. Return to the emergency department with new or worsening symptoms. In case of emergency call 911 You can purchase a pulse oximeter from your local pharmacy or grocery store, and monitor your oxygen saturation if it goes below 94% you should return to the emergency department for further evaluation. Discuss Paxlovid with your PCP within five days Prescriptions: No Action trazodone 50 mg tablet 50 mg PO BEDTIME PRN (Reason: for insomnia) Qty: 90 1RF ergocalciferol (vitamin D2) 1,250 mcg (50,000 unit) capsule 1,250 mcg PO QWEEK Qty: 5 2RF amlodipine 10 mg tablet 10 mg PO DAILY Qty: 90 0RF atorvastatin 40 mg tablet 40 mg PO BEDTIME 90 Days Qty: 90 3RF clotrimazole-betamethasone 1-0.05 % cream 1 appl topical BID 14 Days Qty: 45 0RF triamcinolone acetonide 0.5 % cream 1 appl topical BID 14 Days Qty: 15 0RF Referrals: Yunier Marinelli MD [Primary Care Provider] - 2 days Stand Alone Forms: Work/School Release
== END 2022-03-16 23:23 | disposition home or self-care (01) ==
PROVIDERS: Emergency Provider Emergency Medicine; PCP Internal Medicine
DX: U07.1 COVID-19 (principal); R51.9 Headache, unspecified; I10 Essential (primary) hypertension; E78.00 Pure hypercholesterolemia, unspecified; Z79.02 Long term (current) use of antithrombotics/antiplatelets; Z79.899 Other long term (current) drug therapy
CPT/HCPCS: 36415; 80048; 85025; 87635; 99282; 99283

== ENCOUNTER 2022-03-23 05:54 | Outpatient (REF) | payer OTHER, SELFPAY ==
[2022-03-23 06:18] LABS: MANUAL DIFF FLAG NO
[2022-03-23 07:32] LABS: Basophils Percent Auto 0.4 % (0-2); Eosinophils Absolute Auto 0.1 X10*3/uL (0.0-0.4); Eosinophils Percent Auto 2.5 % (0-4); Hematocrit 41.8 % (37.0-47.0); Hemoglobin 13.7 g/dl (12.0-16.0); Imm Gran Abs Auto 0.02 X10*3/uL (0.00-0.03); Imm Gran Pct Auto 0.4 % (0.0-0.4); Lymphocytes Absolute Auto 2.5 X10*3/uL (1.2-4.9); Lymphocytes Percent Auto 43.2 % (20-40); Mean Corpuscular HGB Conc 32.8 g/dl (31.0-35.0); Mean Corpuscular Hemoglobin 27.9 pg (27.0-33.0); Mean Corpuscular Volume 85.1 fL (80.0-98.0); Mean Platelet Volume 9.5 fL (9.4-12.3); Monocytes Absolute Auto 0.4 X10*3/uL (0.1-1.2); Monocytes Percent Auto 7.8 % (2-11); Neutrophils Absolute Auto 2.6 x10*3/uL (2.0-8.3); Neutrophils Percent Auto 45.7 % (45-73); Platelet Count 345 X10*3/uL (160-400); Red Blood Count 4.91 X10*6/uL (4.20-5.50); Red Cell Distribution Width 15.5 % (11.0-16.0); White Blood Count 5.7 X10*3/uL (4.8-10.8)
[2022-03-23 07:39] LABS: Alanine Aminotransferase 40 U/L (0-31); Albumin Level 4.1 g/dL (3.5-5.0); Alkaline Phosphatase 184 U/L (39-117); Anion Gap 13 (12-20); Aspartate Amino Transferase 17 U/L (5-31); Bilirubin Total 0.4 mg/dL (0.0-1.0); Blood Urea Nitrogen 13 mg/dL (9-16); Calcium 9.1 mg/dL (8.4-10.2); Carbon Dioxide 26 mmol/L (22-29); Chloride 106 mmol/L (96-108); Cholesterol 172 mg/dL; Estimated Glomerular Filt Rate > 60; Glucose Fasting 86 mg/dL (60-99); HDL Cholesterol 41 mg/dL; LDL Cholesterol Calculated 119 mg/dl; Potassium 4.2 mmol/L (3.3-5.1); Sodium 141 mmol/L (135-145); Total Protein 7.3 g/dL (6.5-8.0); Triglycerides 61 mg/dL
[2022-03-23 08:00] LABS: TSH reflex Free T4 1.64 uIU/mL (0.32-4.0); Vitamin D 25-OH Total 36.2 ng/mL (>30)
[2022-03-23 08:15] LABS: Amylase 343 U/L (28-100)
[2022-03-23 08:16] LABS: Appearance Urine Clear; Color Urine Yellow; Glucose Urine UA Negative (Negative); Leukocyte Esterase Urine Moderate (2+) (Negative); Nitrite Urine Negative (Negative); PH 6.5 (5.0-8.0); Urine Blood Negative (Negative); Urine Ketones Negative (Negative); Urine Protein Negative (Neg-Trace)
[2022-03-23 08:30] LABS: Bacteria Urine None Seen (None Seen); Hyaline Casts Urine 0-2 /LPF (0-2); RBC Urine 0-2 /HPF (0-2); WBC Urine 0-5 /HPF (0-5)
== END 2022-03-23 05:55 | disposition home or self-care (01) ==
LOC: HO.LAB 05:54
PROVIDERS: PCP Internal Medicine; Visit Provider Internal Medicine
DX: I10 Essential (primary) hypertension (principal); E55.9 Vitamin D deficiency, unspecified; E78.00 Pure hypercholesterolemia, unspecified; R74.8 Abnormal levels of other serum enzymes
CPT/HCPCS: 36415; 80053; 80061; 81001; 82150; 82306; 84443; 85025

== ENCOUNTER 2022-04-28 09:16 | Outpatient (REF) | payer OTHER, SELFPAY ==
--- NOTE | ~2022-04-28 | XR_ITS ---
EXAMINATION: RIGHT HIP AND RIGHT SHOULDER. CLINICAL INFORMATION: Pain. COMPARISON: None TECHNIQUE: 2 views right hip. 4 views right shoulder FINDINGS: Right hip: The joint space is normal. No bony erosive changes or loose body seen. No soft tissue calcification. No fracture or dislocation. Right shoulder: There is no visible acute fracture, dislocation or subluxation. No bony erosive changes. The AC joint is normal. The soft tissues are normal. XR/XR shoulder RT min 2V IMPRESSION: Unremarkable right hip exam. Unremarkable right shoulder exam.
--- NOTE | ~2022-04-28 | XR_ITS ---
EXAMINATION: RIGHT HIP AND RIGHT SHOULDER. CLINICAL INFORMATION: Pain. COMPARISON: None TECHNIQUE: 2 views right hip. 4 views right shoulder FINDINGS: Right hip: The joint space is normal. No bony erosive changes or loose body seen. No soft tissue calcification. No fracture or dislocation. Right shoulder: There is no visible acute fracture, dislocation or subluxation. No bony erosive changes. The AC joint is normal. The soft tissues are normal. XR/XR hip RT min 2V IMPRESSION: Unremarkable right hip exam. Unremarkable right shoulder exam.
== END 2022-04-28 09:17 | disposition home or self-care (01) ==
LOC: HO.XRAY 09:16
PROVIDERS: Visit Provider Internal Medicine
DX: M25.851 Other specified joint disorders, right hip (principal); M75.41 Impingement syndrome of right shoulder
CPT/HCPCS: 73030; 73502

== ENCOUNTER → 2022-07-07 08:58 | Outpatient (BNVA) | payer OTHER, SELFPAY | PROVIDERS: PCP Internal Medicine; Visit Provider Physician Assistant | DX: M75.101 Unspecified rotator cuff tear or rupture of right shoulder, not specified as traumatic (principal) | CPT/HCPCS: 20610; 99202; J1040 ==

== ENCOUNTER 2022-07-17 06:01 | Outpatient (REF) | payer OTHER, SELFPAY ==
[2022-07-17 06:08] LABS: MANUAL DIFF FLAG NO
[2022-07-17 07:57] LABS: Appearance Urine Cloudy; Color Urine Yellow; Glucose Urine UA Negative (Negative); Leukocyte Esterase Urine Small (1+) (Negative); Nitrite Urine Negative (Negative); Specific Gravity - Urine 1.025 (1.005-1.025); UMIC TRIGGER UACC YES; Urine Blood Negative (Negative); Urine Ketones Negative (Negative); Urine Protein Negative (Neg-Trace)
[2022-07-17 08:00] LABS: Basophils Percent Auto 0.5 % (0-2); Eosinophils Absolute Auto 0.1 X10*3/uL (0.0-0.4); Eosinophils Percent Auto 1.9 % (0-4); Hematocrit 44.9 % (37.0-47.0); Hemoglobin 14.4 g/dl (12.0-16.0); Imm Gran Abs Auto 0.01 X10*3/uL (0.00-0.03); Imm Gran Pct Auto 0.1 % (0.0-0.4); Lymphocytes Absolute Auto 2.5 X10*3/uL (1.2-4.9); Lymphocytes Percent Auto 33.9 % (20-40); Mean Corpuscular HGB Conc 32.1 g/dl (31.0-35.0); Mean Corpuscular Hemoglobin 28.6 pg (27.0-33.0); Mean Corpuscular Volume 89.3 fL (80.0-98.0); Mean Platelet Volume 9.6 fL (9.4-12.3); Monocytes Absolute Auto 0.7 X10*3/uL (0.1-1.2); Monocytes Percent Auto 9.9 % (2-11); Neutrophils Percent Auto 53.7 % (45-73); Platelet Count 335 X10*3/uL (160-400); Red Blood Count 5.03 X10*6/uL (4.20-5.50); Red Cell Distribution Width 15.3 % (11.0-16.0); White Blood Count 7.5 X10*3/uL (4.8-10.8)
[2022-07-17 08:29] LABS: Bacteria Urine None Seen (None Seen); Hyaline Casts Urine 0-2 /LPF (0-2); RBC Urine 0-2 /HPF (0-2); UACC Culture Trigger YES
[2022-07-17 08:56] LABS: Alanine Aminotransferase 27 U/L (0-31); Albumin Level 4.3 g/dL (3.5-5.0); Alkaline Phosphatase 147 U/L (39-117); Amylase 288 U/L (28-100); Anion Gap 12 (12-20); Aspartate Amino Transferase 17 U/L (5-31); Bilirubin Total 0.5 mg/dL (0.0-1.0); Blood Urea Nitrogen 15 mg/dL (9-16); Calcium 9.3 mg/dL (8.4-10.2); Carbon Dioxide 27 mmol/L (22-29); Chloride 106 mmol/L (96-108); Cholesterol 183 mg/dL; Estimated Glomerular Filt Rate > 60; Glucose Fasting 74 mg/dL (60-99); HDL Cholesterol 54 mg/dL; LDL Cholesterol Calculated 118 mg/dl; Potassium 4.4 mmol/L (3.3-5.1); Sodium 141 mmol/L (135-145); TSH reflex Free T4 1.73 uIU/mL (0.32-4.0); Total Protein 7.3 g/dL (6.5-8.0); Triglycerides 58 mg/dL
== END 2022-07-17 06:02 | disposition home or self-care (01) ==
LOC: HO.LAB 06:01
PROVIDERS: PCP Internal Medicine; Visit Provider Internal Medicine
DX: E78.00 Pure hypercholesterolemia, unspecified (principal); E55.9 Vitamin D deficiency, unspecified; R74.8 Abnormal levels of other serum enzymes; I10 Essential (primary) hypertension
CPT/HCPCS: 36415; 80053; 80061; 81001; 82150; 82306; 84443; 85025; 87086

== ENCOUNTER → 2022-07-18 09:13 | Outpatient (BNVA) | payer OTHER, SELFPAY | PROVIDERS: PCP Internal Medicine; Visit Provider Obstetrics & Gynecology | DX: Z13.89 Encounter for screening for other disorder (principal) ==

== ENCOUNTER → 2022-08-18 09:11 | Outpatient (BNVA) | payer OTHER, SELFPAY | PROVIDERS: PCP Internal Medicine; Visit Provider Physician Assistant | DX: M75.101 Unspecified rotator cuff tear or rupture of right shoulder, not specified as traumatic (principal) | CPT/HCPCS: 99212 ==

== ENCOUNTER 2022-08-30 10:00 | Outpatient (RCR) | payer OTHER, SELFPAY ==
--- NOTE | 2022-07-26 10:58 | MHC.PT.EP ---
[facility] [place] Office [place] Office [address] Tj Kumar [address] [phone] F: [phone] F: [phone] F: [phone] F: [phone] Physical Therapy Plan of Care Date of Evaluation: Date of Surgery: Diagnosis: pain in R shoulder Assessment: 61 y/o RHD female referred to PT with R shoulder pain. S/s consistent with subacromial impingement secondary to (+) cluster impingement tests, decreased R shoulder AROM, decreased R shoulder strength (especially ER/flexion/abd), TTP R supraspinatus tendon, and impaired postural awareness resulting in pain and difficulty with lifting, stirring while cooking, reaching, and sleeping. Recommend PT 1x/week for 5 weeks to address impairments, implement HEP, and optimize functional mobility. Frequency and Duration: The patient will be seen 1x/week for 5 weeks Short Term Goals: 3 weeks Compliant with HEP Improve R shoulder flexion to 130 AROM [facility] Goals: 5 weeks I with HEP and self management of sx Pt will be able to cook with pain < 3/10 Pt will be able to reach overhead into cabinets with pain < 3/10 Demonstrate 4/5 R shoulder strength Treatment Plan: Modalities to reduce pain, spasms and effusion. Manual therapy to restore motion and function. Therapeutic exercise to improve strength and flexibility. Neuromuscular re-education for posture and balance. Therapeutic activities to return to functional activities of daily living. Electronically signed by: Parul Lino PT Please sign and return to therapist. Thank you for your referral.
--- NOTE | 2022-09-25 14:09 | MHC.PT.DC ---
[facility] [place] Office [place] Office [place] Office [address] Tj Kumar [address] [phone] F: [phone] F: [phone] F: [phone] F: [phone] Physical Therapy Discharge Report Diagnosis: pain in R shoulder Date of Surgery: Date of Evaluation: 07/26/22 Date of Discharge: 09/25/22 Treatments to Date: 4 Cancellations to Date: 1 No Shows to Date: Discharge Status: Discharge Summary: Pt did not f/u with further visits. She made minimal progress and is d/c at this time. Electronically signed by: Parul Lino PT Please sign and return to therapist. Thank you for your referral.
== END 2022-09-25 14:09 | disposition home or self-care (01) ==
LOC: HO.PT 10:00
PROVIDERS: PCP Internal Medicine; Visit Provider Physician Assistant
DX: M75.101 Unspecified rotator cuff tear or rupture of right shoulder, not specified as traumatic (principal)
CPT/HCPCS: 97110; 97140; 97161

== ENCOUNTER 2022-09-01 08:53 | Outpatient (REF) | payer OTHER, SELFPAY ==
--- NOTE | ~2022-09-01 | MR_ITS ---
EXAMINATION: MR SHOULDER WITHOUT CONTRAST, RIGHT CLINICAL INFORMATION: Right shoulder pain x 3 months. Fall in 2013. No recent injury. COMPARISON: None. TECHNIQUE: MRI of the shoulder without contrast was performed on a high-field scanner. FINDINGS: ROTATOR CUFF: At the supraspinatus tendon insertion, there is a 1 cm (AP) bursal-sided partial tear involving two thirds of the tendon thickness with retraction of the bursal-sided fibers by 6 mm. There is associated [id number] tendinosis of the supraspinatus and more mild tendinosis of the subscapularis and infraspinatus. No additional tears. No muscle atrophy or fatty infiltration. BICEPS: Normal. CORACOACROMIAL ARCH: The undersurface of the acromion is curved with a small anterior subacromial spur. Moderate acromioclavicular osteoarthritis. Small volume of fluid in the subacromial subdeltoid bursa, consistent with mild bursitis. LABRUM/CAPSULE: Labrum is intact. Joint capsule is normal. GLENOHUMERAL JOINT/MARROW: Small marginal osteophytes at the glenoid and humeral head. Articular cartilage appears relatively well-preserved. No discrete chondral defects. Subcortical edema and cystic change at the greater tuberosity is reactive to overlying rotator cuff tendinopathy. MR/MR shoulder RT wo con IMPRESSION: 1. A 1 cm (AP) bursal sided partial tear of the supraspinatus tendon with mild to moderate associated tendinosis. No muscle atrophy. 2. Moderate acromioclavicular osteoarthritis. 3. Mild subacromial subdeltoid bursitis. 4. Minimal glenohumeral osteoarthritis.
== END 2022-09-01 08:54 | disposition home or self-care (01) ==
LOC: HO.MRI 08:53
PROVIDERS: Visit Provider Physician Assistant
DX: M75.101 Unspecified rotator cuff tear or rupture of right shoulder, not specified as traumatic (principal)
CPT/HCPCS: 73221

== ENCOUNTER → 2022-09-12 09:13 | Outpatient (BNVA) | payer OTHER, SELFPAY | PROVIDERS: PCP Internal Medicine; Visit Provider Physician Assistant | DX: M75.101 Unspecified rotator cuff tear or rupture of right shoulder, not specified as traumatic (principal) | CPT/HCPCS: 99212 ==

== ENCOUNTER → 2022-11-07 09:17 | Outpatient (BNVA) | payer OTHER, SELFPAY | PROVIDERS: PCP Internal Medicine; Visit Provider Physician Assistant | DX: M75.101 Unspecified rotator cuff tear or rupture of right shoulder, not specified as traumatic (principal) | CPT/HCPCS: 99212 ==

== ENCOUNTER 2022-11-20 06:05 | Outpatient (REF) | payer OTHER, SELFPAY ==
[2022-11-20 08:30] LABS: Alanine Aminotransferase 44 U/L (0-31); Albumin Level 4.3 g/dL (3.5-5.0); Alkaline Phosphatase 142 U/L (39-117); Amylase 197 U/L (28-100); Anion Gap 11 (12-20); Aspartate Amino Transferase 30 U/L (5-31); Bilirubin Total 0.7 mg/dL (0.0-1.0); Blood Urea Nitrogen 15 mg/dL (9-16); Calcium 9.1 mg/dL (8.4-10.2); Carbon Dioxide 26 mmol/L (22-29); Chloride 108 mmol/L (96-108); Cholesterol 171 mg/dL; Estimated Glomerular Filt Rate > 60; Glucose Fasting 85 mg/dL (60-99); HDL Cholesterol 51 mg/dL; LDL Cholesterol Calculated 111 mg/dl; Potassium 4.6 mmol/L (3.3-5.1); Sodium 140 mmol/L (135-145); Triglycerides 47 mg/dL
[2022-11-20 08:52] LABS: Appearance Urine Clear; Color Urine Yellow; Glucose Urine UA Negative (Negative); Leukocyte Esterase Urine Negative (Negative); Nitrite Urine Negative (Negative); PH 5.5 (5.0-9.0); Urine Blood Negative (Negative); Urine Ketones Negative (Negative); Urine Protein Negative (Neg-Trace)
== END 2022-11-20 06:06 | disposition home or self-care (01) ==
LOC: HO.LAB 06:05
PROVIDERS: PCP Internal Medicine; Visit Provider Internal Medicine
DX: I10 Essential (primary) hypertension (principal); E78.00 Pure hypercholesterolemia, unspecified; R74.8 Abnormal levels of other serum enzymes
CPT/HCPCS: 36415; 80053; 80061; 81003; 82150

== ENCOUNTER 2022-11-30 09:13 | Outpatient (REF) | payer OTHER, SELFPAY ==
--- NOTE | ~2022-11-30 | XR_ITS ---
EXAMINATION: XR LUMBOSACRAL SPINE CLINICAL INFORMATION: Low back pain. COMPARISON: None available. TECHNIQUE: Three views of the lumbosacral spine. FINDINGS: Cholecystectomy clips. Vertebral body heights are maintained. Moderate degenerative disc disease at L4-L5 and L5-S1. Mild facet arthrosis at L4-L5 and L5-S1. XR/XR lumbar spine 2-3V IMPRESSION: Yilr-to-cbkeflwy degenerative changes L4-L5 and L5-S1.
== END 2022-11-30 09:14 | disposition home or self-care (01) ==
LOC: HO.XRAY 09:13
PROVIDERS: PCP Internal Medicine; Visit Provider Internal Medicine
DX: M54.50 Low back pain, unspecified (principal)
CPT/HCPCS: 72100

== ENCOUNTER 2023-01-16 10:00 | Outpatient (RCR) | payer OTHER, SELFPAY ==
--- NOTE | 2022-11-30 11:39 | MHC.PT.EP ---
[facility] [place] Office [place] Office [place] Office [address] Tj Kumar [address] [phone] F: [phone] F: [phone] F: [phone] F: [phone] Physical Therapy Plan of Care Date of Evaluation: Date of Surgery: N/A Diagnosis: unspecified tear of right shoulder (RC) Assessment: pt is a 62 y/o female presenting to physical therapy w/ referring diagnosis of rupture of R shoulder. Her MRI is (+) for subdeltoid bursa involvement, supraspinatus partial tear, and moderate-severe AC joint OA. Impairments include pain, decreased range of motion, decreased strength, impaired functional mobility, impaired postural awareness, and altered ambulation mechanics. pt is a good candidate for skilled PT due to age, potential remediation of impairments, typical disease/condition progression and prognosis, comorbidities, and motivation. pt would benefit from skilled PT intervention to provide a tailored strengthening and stretching exercise program, functional training, gait training, postural re-training, neuromuscular re-education, modalities as needed for pain, equipment safety demonstration. Frequency and Duration: The patient will be seen 2x/wk for 4 wks Short Term Goals: pt will be I w/ HEP to promote self-management of condition. pt will improve R shoulder flexion by 10 degrees to promote ease in reaching for objects on higher shelves. Fdc Goals: pt will report a statistically significant improvement in self-reported outcome measure, SPADI, to promote return to PLOF. pt will report <2/10 pain w/ reaching hand behind head to promote improved tolerance for upper body ADLs. Treatment Plan: Modalities to reduce pain, spasms and effusion. Manual therapy to restore motion and function. Therapeutic exercise to improve strength and flexibility. Neuromuscular re-education for posture and balance. Therapeutic activities to return to functional activities of daily living. Electronically signed by: Phoebe Plasencia PT, DPT Please sign and return to therapist. Thank you for your referral.
--- NOTE | 2023-02-20 09:11 | MHC.PT.DC ---
[facility] [place] Office [place] Office [place] Office [address] Tj Kumar 140 [facility] [phone] F: [phone] F: [phone] F: [phone] F: [phone] Physical Therapy Discharge Report Diagnosis: unspecified tear of right shoulder (RC) Date of Surgery: N/A Date of Evaluation: 11/30/22 Date of Discharge: 02/20/23 Treatments to Date: 8 Cancellations to Date: 0 No Shows to Date: 0 Discharge Status: Visit Non-compliance Discharge Summary: The patient no showed her last scheduled appointment and has not called to reschedule any additional visits in approximately 4 weeks. She has a total of 3 no shows. She was reporting improvement in her shoulder pain when she was last seen. Her current status is unknown. She is discharged from this physical therapy plan of care. Electronically signed by: Phoebe Wilson PT, DPT Please sign and return to therapist. Thank you for your referral.
== END 2023-02-20 09:11 | disposition home or self-care (01) ==
LOC: HO.PT 10:00
PROVIDERS: PCP Internal Medicine; Visit Provider Physician Assistant
DX: M75.101 Unspecified rotator cuff tear or rupture of right shoulder, not specified as traumatic (principal)
CPT/HCPCS: 97110; 97162

== ENCOUNTER 2023-02-12 10:40 | Outpatient (REF) | payer OTHER, SELFPAY ==
--- NOTE | ~2023-02-12 | MM_ITS ---
EXAMINATION: MM SCREENING DIGITAL BREAST TOMOSYNTHESIS, BILATERAL CLINICAL INFORMATION: Screening. Asymptomatic. The lifetime risk of breast cancer based on the Tyrer-Cuzick Model is 4.3 %. COMPARISON: Mammography: This study is compared with prior exams dating back to 2018. TECHNIQUE: Digital breast tomosynthesis is performed in both the craniocaudal and mediolateral oblique views along with computer-aided detection (CAD). Synthesized 2D images are generated from the tomosynthesis. FINDINGS: The breasts are heterogeneously dense, which may obscure small masses (ACR BI-RADS breast composition Category c). There are no significant masses, abnormal calcifications, or other abnormalities. MM/MM tomosynthesis screening BI IMPRESSION: No mammographic evidence of malignancy. ASSESSMENT: BI-RADS BI-RADS 1 - Negative RECOMMENDATION: Routine annual mammography screening. 1 year F/U This examination should not preclude the clinical evaluation of a suspicious palpable abnormality. This patient's information was entered into a reminder system with a target due date for their next mammogram.
== END 2023-02-12 10:41 | disposition home or self-care (01) ==
LOC: HO.MAMMO 10:40
PROVIDERS: PCP Internal Medicine; Visit Provider Internal Medicine
DX: Z12.31 Encounter for screening mammogram for malignant neoplasm of breast (principal)
CPT/HCPCS: 77063; 77067

== ENCOUNTER → 2023-02-12 11:00 | Outpatient (BNV) | payer OTHER, SELFPAY | PROVIDERS: PCP Internal Medicine; Visit Provider Radiology Diagnostic Radiology | DX: Z12.31 Encounter for screening mammogram for malignant neoplasm of breast (principal) | CPT/HCPCS: 77063; 77067 ==

== ENCOUNTER 2023-03-20 06:01 | Outpatient (REF) | payer OTHER, SELFPAY ==
[2023-03-20 06:22] LABS: MANUAL DIFF FLAG NO
[2023-03-20 07:03] LABS: Basophils Percent Auto 0.5 % (0-2); Eosinophils Absolute Auto 0.2 X10*3/uL (0.0-0.4); Eosinophils Percent Auto 2.7 % (0-4); Hemoglobin 14.2 g/dl (12.0-16.0); Imm Gran Abs Auto 0.01 X10*3/uL (0.00-0.03); Imm Gran Pct Auto 0.2 % (0.0-0.4); Lymphocytes Percent Auto 31.5 % (20-40); Mean Corpuscular Hemoglobin 28.6 pg (27.0-33.0); Mean Corpuscular Volume 86.5 fL (80.0-98.0); Mean Platelet Volume 9.8 fL (9.4-12.3); Monocytes Absolute Auto 0.5 X10*3/uL (0.1-1.2); Monocytes Percent Auto 8.2 % (2-11); Neutrophils Absolute Auto 3.5 x10*3/uL (2.0-8.3); Neutrophils Percent Auto 56.9 % (45-73); Platelet Count 336 X10*3/uL (160-400); Red Blood Count 4.97 X10*6/uL (4.20-5.50); Red Cell Distribution Width 15.7 % (11.0-16.0); White Blood Count 6.2 X10*3/uL (4.8-10.8)
[2023-03-20 07:33] LABS: Appearance Urine Clear; Color Urine Yellow; Glucose Urine UA Negative (Negative); Leukocyte Esterase Urine Negative (Negative); Nitrite Urine Negative (Negative); Specific Gravity - Urine 1.015 (1.005-1.025); Urine Blood Negative (Negative); Urine Ketones Negative (Negative); Urine Protein Negative (Neg-Trace)
[2023-03-20 07:38] LABS: Alanine Aminotransferase 23 U/L (0-31); Albumin Level 4.3 g/dL (3.5-5.0); Alkaline Phosphatase 145 U/L (39-117); Amylase 189 U/L (28-100); Anion Gap 12 (12-20); Aspartate Amino Transferase 22 U/L (5-31); Bilirubin Total 0.6 mg/dL (0.0-1.0); Blood Urea Nitrogen 12 mg/dL (9-16); Calcium 9.7 mg/dL (8.4-10.2); Carbon Dioxide 25 mmol/L (22-29); Chloride 108 mmol/L (96-108); Cholesterol 157 mg/dL (<200); Estimated Glomerular Filt Rate > 60; Glucose Fasting 93 mg/dL (60-99); HDL Cholesterol 51 mg/dL (>40); LDL Cholesterol Calculated 97 mg/dL (<100); Potassium 3.9 mmol/L (3.3-5.1); Sodium 141 mmol/L (135-145); Total Protein 7.7 g/dL (6.5-8.0); Triglycerides 49 mg/dL (<150)
[2023-03-20 07:53] LABS: TSH reflex Free T4 1.13 uIU/mL (0.32-4.0); Vitamin D 25-OH Total 45.8 ng/mL (>30)
== END 2023-03-20 06:02 | disposition home or self-care (01) ==
LOC: HO.LAB 06:01
PROVIDERS: PCP Internal Medicine; Visit Provider Internal Medicine
DX: E55.9 Vitamin D deficiency, unspecified (principal); R30.0 Dysuria; E78.00 Pure hypercholesterolemia, unspecified; I10 Essential (primary) hypertension; R74.8 Abnormal levels of other serum enzymes
CPT/HCPCS: 36415; 80053; 80061; 81003; 82150; 82306; 84443; 85025

== ENCOUNTER 2023-03-26 09:03 | Outpatient (AMB) | payer OTHER, SELFPAY ==
[2023-03-26 09:09] VITALS: BP 116/80; PULSE 66; O2SAT 97; BMI 26.0
--- NOTE | 2023-03-26 09:09 | MHC.PC.OV ---
Vital Signs 03/26/23 09:09 Height 5 ft 3 in Weight 147 lb BMI 26.0 BP 116/80 Blood Pressure Location Lt brachial Position Sitting Pulse 66 Pulse Source Pulse Oximeter Pulse Oximetry (%) 97 Oxygen Delivery Method Room Air Intake Visit Reasons: hyperlipidemia, HTN, hyperamylasemia Green Marketing Analyst Required: No Accompanied by: Self / Same As Patient Allergies No Known Allergies [No Known Allergies*] Allergy (Verified 03/26/23 09:50) Medication List - Last Reconciled 03/26/23 by Yunier Marinelli MD amlodipine 10 mg PO DAILY atorvastatin 40 mg PO BEDTIME 90 days clotrimazole-betamethasone 1-0.05 % 1 appl topical BID 2 weeks diclofenac sodium 75 mg PO BID PRN ergocalciferol (vitamin D2) 1,250 mcg PO QWEEK 90 days lidocaine 4% 1 patch topical DAILY PRN trazodone 50 mg PO BEDTIME PRN triamcinolone acetonide 0.5% 1 appl topical BID 14 days Tobacco use date assessed: 03/26/23 Dental Screening Dental Screen Date: 03/26/23 Did you have a dental visit in the last 12 months?: Yes Did you have a dental problem in the last 6 months where you did not have access to dental care?: No Was dental information given to patient?: Patient has dentist HPI hyperlipidemia, HTN, hyperamylasemia HPI Details Patient comes in today for her follow up visit States that she feels okay Still has multiple joint pains but feels that these, especially in her right hip, have been getting worse lately States that 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 and could not get up without any assistance - recalls that she felt stuck and that her joints would not move then She denies any headaches or dizziness Denies any chest pains, no SOB No nausea/vomiting, no abdominal pain No change in bowel habits noted Needs her Vitamin D Rx refilled Had her follow up labs done last week - to discuss her results [facility] Medical History ASCUS of cervix with negative high risk HPV Asymptomatic microscopic hematuria Benign essential hypertension Bowel obstruction Calcaneal spur Carpal tunnel syndrome of right wrist Colon cancer screening Constipation Degenerative arthritis of right knee Depression Edema of lower extremity due to peripheral venous insufficiency Elevated cholesterol Elevated LFTs Generalized pruritus HTN (hypertension) Hyperamylasemia Insomnia Irritable bowel syndrome Lumbar disc disease Migraine Osteopenia Overweight (BMI 25.0-29.9) Pure hypercholesterolemia Pyuria Tinea corporis Vitamin D deficiency Surgical History H/O colonoscopy (~07/26/10) History of cholecystectomy History of ear surgery History of laparotomy History of tubal ligation Status post epidural steroid injection (~2005) Family History Father Medical history unknown Mother Hypertension Son No problems noted. Social History Housing: House Alcohol intake: never Patient Tobacco Use Status: Never used Tobacco e-Cigarette/Vaping Use: Never Used Second Hand Smoke Exposure: No service: No Current occupational status: retired Current occupation: right hand dominant Cognitive needs: No Hearing needs: No Vision needs: Yes Female Reproductive History Menstrual Age of Menarche: 11 Questionnaire PHQ-9 Over the last 2 weeks, how often have you been bothered by any of the following problems? 1. Little interest or pleasure in doing things: not at all 2. Feeling down, depressed, or hopeless: not at all 3. Trouble falling or staying asleep, or sleeping too much: not at all 4. Feeling tired or having little energy: not at all 5. Poor appetite or overeating: not at all 6. Feeling bad about yourself - or that you are a failure or have let yourself or your family down: not at all 7. Trouble concentrating on things, such as reading the newspaper or watching television: not at all 8. Moving or speaking so slowly that other people could have noticed. Or the opposite - being so fidgety or restless that you have been moving around a lot more than usual: not at all 9. Thoughts that you would be better off or of hurting yourself in some way: not at all Total score: 0 Depression Screening Interpretation: Negative 73400 - PHQ-9 Billing: Yes Source: Developed by Drs. Trip Patton, Melinda Norris, Demetrio Bella and colleagues, with an educational miah from [employer]. Thrive Questionnaire Date Thrive assessed: 03/26/23 I am a: Patient What is your living situation today?: I have a steady place to live Within the past 12 months, did the food you bought not last and you didn't have the money to get more?: Never true Within the past 12 months, did you worry whether your food would run out before you got money to buy more?: Never true Do you have trouble paying for medicines?: No Do you have trouble getting transportation to medical appointments?: No Do you have trouble paying your heating and electricity bill?: No Do you have trouble taking care of your child, family member or friend?: No Do you have trouble with day-to-day activities such as bathing, preparing meals, shopping, managing finances, etc.?: No Are you currently unemployed and looking for a job?: No Are you interested in more education?: No Please select the resources that you would like help with: None Currently or been in a relationship where the following occur: no concerns reported AUDIT C Alcohol Use Questionnaire (AUDIT-C) 1. How often do you have a drink containing alcohol?: Never 3. How often do you have six or more drinks on one occasion?: Never Total Score: 0 Score Reviewed/Action Taken: Yes NATHAN-7 AMB Questionnaire NATHAN-7 Date NATHAN - 7 assessed: 03/26/23 Feeling nervous, anxious, or on edge: 0 = Not at all Not being able to stop or control worryin = Not at all Worrying too much about different things: 0 = Not at all Trouble relaxin = Not at all Being so restless that it is hard to sit still: 0 = Not at all Becoming easily annoyed or irritable: 0 = Not at all Feeling afraid as if something awful might happen: 0 = Not at all Total NATHAN-7 score (0-4 normal; 5-9 mild; 10-14 moderate; 15-21 severe): 0 Source: Developed by Drs. Trip Patton, Melinda Norris, Demetrio Bella and colleagues, with an educational miah from [employer]. Review of Systems Const Reports fatigue, Denies fever(s) and Denies headache(s) ENT Denies dysphagia, Denies dizziness, Denies otalgia, Denies headache(s) and Denies sore throat Card Denies chest pain, Denies palpitations and Denies dyspnea Resp Denies cough and Denies dyspnea GI Denies abdominal pain, Denies constipation, Denies dysphagia, Denies heartburn, Denies diarrhea, Denies nausea and Denies vomiting Denies difficulty voiding, Denies nocturia and Denies dysuria Musc Details: recurrent pain in the right upper arm although she states that her shoulder pain is better-controlled lately; still has right thigh pain that increases with activity and prolonged walking Reports back pain (on and off over the lower back) Neuro Denies dizziness and Denies headache(s) Endo Reports fatigue and Denies palpitations Physical exam (Primary Care) Vital Signs: Last Vital Signs Pulse 66 03/26/23 09:09 BP 116/80 03/26/23 09:09 Pulse Ox 97 03/26/23 09:09 Oxygen Delivery Method Room Air 03/26/23 09:09 BMI result Body Mass Index 26.0 Tobacco/Smoking Status: Tobacco use Status Tobacco use date assessed 03/26/23 03/26/23 09:13 Patient Tobacco Use Status Never used Tobacco 03/26/23 09:13 e-Cigarette/Vaping Use Never Used 03/26/23 09:13 PHQ-9: PHQ-9 Score PHQ-9: Total score 0 03/26/23 09:13 Depression Screening Interpretation: Negative Thrive Assessment: Date of Thrive Assessment Date Thrive assessed 03/26/23 03/26/23 09:13 Currently or been in a relationship where the following occur: no concerns reported Const General: no acute distress and alert HENMT Ears: TM's normal bilaterally and EAC's normal Throat: Yes posterior oropharynx normal and Yes tonsils normal Neck Neck: Yes no lymphadenopathy and Yes supple Resp Auscultation: clear to auscultation bilaterally, no rales and no wheezes Cardio Rate: regular rate Rhythm: regular rhythm Heart sounds: no murmurs GI Palpation (GI): Soft to palpation and nontender Auscultation: normal bowel sounds Back/Spine/Pelvis Thoracic/Lumbar Spine: lumbar spinal tenderness Extrem General: Yes no clubbing, cyanosis or edema Right upper extremity: shoulder/upper arm Details: tenderness (mild) Location: over the subacromial bursa (tenderness radiate down anteromedial aspect of upper arm at times) Right lower extremity: hip/thigh Details: tenderness Location: of the hip Location: laterally (tenderness radiating down lateral aspect of thigh-increasing lately) Results Reviewed Results Reviewed: Laboratory Tests 11/20/22 03/20/23 03/20/23 06:18 06:17 06:20 WBC 6.2 Hgb 14.2 Hct 43.0 Plt Count 336 Sodium Potassium Creatinine Estimated GFR Fasting Glucose Calcium AST ALT Triglycerides 47 Cholesterol 171 LDL Cholesterol, Calc 111 HDL Cholesterol 51 Amylase 25-OH Vitamin D Total TSH Ur Specific [place] 1.015 Urine Protein Negative Urine Glucose (UA) Negative Urine Blood Negative 03/20/23 06:20 WBC Hgb Hct Plt Count Sodium 141 Potassium 3.9 Creatinine 0.78 Estimated GFR > 60 Fasting Glucose 93 Calcium 9.7 D AST 22 ALT 23 Triglycerides 49 Cholesterol 157 LDL Cholesterol, Calc 97 HDL Cholesterol 51 Amylase 189 H 25-OH Vitamin D Total 45.8 TSH 1.13 Ur Specific [place] Urine Protein Urine Glucose (UA) Urine Blood Assessment and Plan Assessment & Plan (1) Pure hypercholesterolemia: Code(s): E78.00 - Pure hypercholesterolemia, unspecified Plan: Results of her labs done last week reviewed and discussed with patient Reinforced low cholesterol diet Continue Atorvastatin 40 mg QD Will recheck her labs and fasting lipids in 4 months for follow up (2) Benign essential hypertension: Code(s): I10 - Essential (primary) hypertension Plan: Reinforced low sodium diet - goal is systolic BP of at least 120 to 130 mm or less Continue Amlodipine 10 mg QD (3) Elevated LFTs: Code(s): R79.89 - Other specified abnormal findings of blood chemistry Plan: Improved; LFTs have remained normal on her recent labs - will continue to monitor regularly Abdominal US done last year came out normal; US done back in November 2012 was also normal, with limited visualization of the tail of the pancreas due to bowel gas. There were also some right renal cysts noted incidentally (4) Migraine: Code(s): G43.909 - Migraine, unspecified, not intractable, without status migrainosus Qualifiers: Migraine type: unspecified Status migrainosus presence: without status migrainosus Intractability: not intractable Qualified Code(s): G43.909 - Migraine, unspecified, not intractable, without status migrainosus Plan: Stable with no acute flare ups of her migraine headaches lately (5) Hyperamylasemia: Code(s): R74.8 - Abnormal levels of other serum enzymes Plan: Stable - will continue to monitor her serum amylase level regularly Unclear if this has anything to do at all with her small bowel surgery (Meckel's diverticulum resection and lysis of adhesions) back in 1997 (6) Generalized pruritus: Code(s): L29.9 - Pruritus, unspecified Plan: Has been seen and evaluated by room inspector previously and was diagnosed with atopic dermatitis Was supposed to be scheduled for allergy testing but this was postponed and has yet to be done - patient prefers to continue holding off on this as she has not had any significant issues with her dermatitis since (7) Vitamin D deficiency: Code(s): E55.9 - Vitamin D deficiency, unspecified Plan: Corrected - continue Vitamin D2 53457 units once a week (Rx refilled) (8) Right hip pain: Code(s): M25.551 - Pain in right hip Plan: Feels that her right hip pain has been progressing lately Notes that she was unable to get back up without assistance when 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 Right hip x-rays done a few months ago came out normal Will refer her to rheumatology for further evaluation and management of this issue as well as her other joint pains (9) Painful arc syndrome of right shoulder: Code(s): M75.101 - Unspecified rotator cuff tear or rupture of right shoulder, not specified as traumatic Plan: Received cortisone injection into her shoulder from orthopedics earlier this year with little relief MRI of the shoulder done in August 2022 revealed (+) 1 cm bursal-sided partial tear of the supraspinatus tendon with mild to moderate associated tendinosis with NO muscl atrophy. There is also moderate acromioclavicular osteoarthritis, mild subacromial subdeltoid bursitis and minimal glenohumeral osteoarthritis S/P physical therapy with some improvement and she continues to do the shoulder exercises on her own regularly to help manage her shoulder symptoms Follow up with orthopedics as scheduled (10) Degenerative arthritis of right knee: Code(s): M17.11 - Unilateral primary osteoarthritis, right knee Qualifiers: Osteoarthritis type: primary Qualified Code(s): M17.11 - Unilateral primary osteoarthritis, right knee Plan: Knee pain has been mostly manageable X-rays done back in March 2017 showed (+) mild arthritis changes that are similar to findings in July 2015 Follow up with orthopedics as scheduled or as needed (11) Lumbar disc disease: Comment: (+) moderate L5-S1 disc dessication with mild end plate irregularities seen on lumbar spine CT done on 11/13/2005 Code(s): M51.9 - Unspecified thoracic, thoracolumbar and lumbosacral intervertebral disc disorder Plan: Repeat lumbar spine x-rays doen on 11/30/2022 revealed (+) mild to moderate degenerative changes at L4-L5 and L5-S1 Reinforced activity and weight-lifting restrictions to minimize aggravating her lower back (12) Irritable bowel syndrome: Code(s): K58.9 - Irritable bowel syndrome without diarrhea Qualifiers: Irritable bowel syndrome type: unspecified Qualified Code(s): K58.9 - Irritable bowel syndrome without diarrhea Plan: Stable - follow up with GI as scheduled (13) Constipation: Code(s): K59.00 - Constipation, unspecified Qualifiers: Constipation type: unspecified constipation type Qualified Code(s): K59.00 - Constipation, unspecified Plan: Improved - reinforced increased oral fluids and dietary fiber Continue Senna 8.6 mg 1 to 2 tablets QD PRN (14) Osteopenia: Code(s): M85.80 - Other specified disorders of bone density and structure, unspecified site Qualifiers: Osteopenia location: unspecified Qualified Code(s): M85.80 - Other specified disorders of bone density and structure, unspecified site Plan: Repeat BMD done on 08/17/2021 revealed (+) osteopenia, with an 8.0% decline in BMD in the left femur from previous Patient encouraged to continue to exercise regularly and stay active as well as continue with her daily vitamin-D and calcium supplements Will continue to monitor her BMD regularly (15) Asymptomatic microscopic hematuria: Code(s): R31.21 - Asymptomatic microscopic hematuria Plan: Renal ultrasound done in July 2020 revealed (+) bilateral renal cysts, greater in the right kidney; US was otherwise normal Her recent urinalysis done last week came out normal with NO RBCs in the urine Will continue to monitor this regularly (16) Insomnia: Code(s): G47.00 - Insomnia, unspecified Qualifiers: Insomnia type: unspecified Qualified Code(s): G47.00 - Insomnia, unspecified Plan: Sleep hygiene reinforced Continue Lorazepam 1 mg once a day at bedtime as needed and Trazodone 50 mg daily at bedtime as needed - states that she does not take any of these regularly as she does not want to risk developing dependence on sleep aids over time (17) Depression: Code(s): F32.9 - Major depressive disorder, single episode, unspecified Qualifiers: Depression Type: major depressive disorder Major depression recurrence: recurrent Active/Remission status: currently active Major depression episode severity: unspecified Qualified Code(s): F33.9 - Major depressive disorder, recurrent, unspecified Plan: Feels that her depression is still under control and she still does not need any intervention at this time Plan Follow up in 4 months Orders: Orders Complete Blood Count Auto Diff 4 Months I10 - Essential (primary) hypertension Comprehensive [place]. Panel Fast 4 Months E78.00 - Pure hypercholesterolemia, unspecified Lipid Panel 4 Months E78.00 - Pure hypercholesterolemia, unspecified TSH reflex Free T4 4 Months E78.00 - Pure hypercholesterolemia, unspecified UA CC w/rflx Micro + Cult 4 Months R30.0 - Dysuria Vitamin D 25-OH Total 4 Months E55.9 - Vitamin D deficiency, unspecified Amylase 4 Months R74.8 - Abnormal levels of other serum enzymes Referrals Rheumatology Referral M25.50 - Pain in unspecified joint, M25.551 - Pain in right hip Medications: Refilled ergocalciferol (vitamin D2) 1,250 mcg PO QWEEK 90 days 13 caps 1RF E55.9 - Vitamin D deficiency, unspecified Coding Level of Care Code Est Pt Level 4 (86891) Diagnoses Pure hypercholesterolemia E78.00 Benign essential hypertension I10 Elevated LFTs R79.89 Migraine G43.909 Migraine type: unspecified Status migrainosus presence: without status migrainosus Intractability: not intractable Hyperamylasemia R74.8 Generalized pruritus L29.9 Vitamin D deficiency E55.9 Right hip pain M25.551 Painful arc syndrome of right shoulder M75.101 Degenerative arthritis of right knee M17.11 Osteoarthritis type: primary Lumbar disc disease M51.9 Irritable bowel syndrome K58.9 Irritable bowel syndrome type: unspecified Constipation K59.00 Constipation type: unspecified constipation type Osteopenia M85.80 Osteopenia location: unspecified Asymptomatic microscopic hematuria R31.21 Insomnia G47.00 Insomnia type: unspecified Depression F33.9 Depression Type: major depressive disorder Major depression recurrence: recurrent Active/Remission status: currently active Major depression episode severity: unspecified
== END 2023-03-26 10:06 | disposition home or self-care (01) ==
PROVIDERS: PCP Internal Medicine; Visit Provider Internal Medicine
DX: I10 Essential (primary) hypertension (principal); G43.909 Migraine, unspecified, not intractable, without status migrainosus; E55.9 Vitamin D deficiency, unspecified; K58.9 Irritable bowel syndrome, unspecified; F33.9 Major depressive disorder, recurrent, unspecified; E78.00 Pure hypercholesterolemia, unspecified; R74.8 Abnormal levels of other serum enzymes; R79.89 Other specified abnormal findings of blood chemistry; L29.9 Pruritus, unspecified; M75.101 Unspecified rotator cuff tear or rupture of right shoulder, not specified as traumatic; M25.551 Pain in right hip; M17.11 Unilateral primary osteoarthritis, right knee
CPT/HCPCS: 99214

== ENCOUNTER 2023-07-05 10:42 | Outpatient (AMB) | payer OTHER, SELFPAY ==
[2023-07-05 10:48] VITALS: BP 118/70; PULSE 84; RESP 17; TEMP 36.2; O2SAT 99; BMI 26.7
--- NOTE | 2023-07-05 10:48 | A.OFFVIS_ITS ---
Intake Vital Signs 07/05/23 10:48 Height 5 ft 3 in Weight 151 lb 0.266 oz BMI 26.7 BP 118/70 Blood Pressure Location Rt brachial Position Sitting Respiration 17 Pulse 84 Pulse Source Pulse Oximeter Temp 97.2 F Temp Source Tympanic Pulse Oximetry (%) 99 Oxygen Delivery Method Room Air Intake Visit Reasons: Joint pain Him Specialist Required: No Allergies No Known Allergies [No Known Allergies*] Allergy (Verified 07/05/23 10:51) Medication List - Last Reconciled 07/05/23 by Tucker Thompson MD amlodipine 10 mg PO DAILY atorvastatin 40 mg PO BEDTIME 90 days clotrimazole-betamethasone 1-0.05 % 1 appl topical BID 2 weeks diclofenac sodium 75 mg PO BID PRN ergocalciferol (vitamin D2) 1,250 mcg PO QWEEK 90 days lidocaine 4% 1 patch topical DAILY PRN [thumb spica wear nightly & as much as possible throughout the day] trazodone 50 mg PO BEDTIME PRN triamcinolone acetonide 0.5% 1 appl topical BID 14 days HPI HPI Comments History of Present Illness Details This is a 62-year-old female was referred for evaluation of multiple joint pain. Patient has known history of degenerative arthritis of her lumbar spine. She received an epidural steroid injection about 15 years ago. She states that she has been having bilateral hip pain for a few months now. Worse on the right. She has difficulty with leaning down. Recently she has been having pain in her right wrist. States that it started after she strained her right wrist when she was closing a door. She has been wearing a right wrist splint. Also mention that month and half ago she fell and twisted her right ankl e. She is unaware of any family history of an autoimmune rheumatic disease. [facility] Medical History Lumbar disc disease Osteopenia ASCUS of cervix with negative high risk HPV Tinea corporis Overweight (BMI 25.0-29.9) Depression Insomnia Asymptomatic microscopic hematuria Pyuria Carpal tunnel syndrome of right wrist Calcaneal spur Irritable bowel syndrome Elevated LFTs Degenerative arthritis of right knee Constipation Vitamin D deficiency Edema of lower extremity due to peripheral venous insufficiency Hyperamylasemia Generalized pruritus Migraine Pure hypercholesterolemia Benign essential hypertension Colon cancer screening Bowel obstruction Elevated cholesterol HTN (hypertension) Surgical History Status post epidural steroid injection (~2005) History of tubal ligation History of laparotomy History of ear surgery H/O colonoscopy (~07/26/10) History of cholecystectomy Family History Father Medical history unknown Mother Hypertension Son No problems noted. Social History Housing: House Alcohol intake: never Patient Tobacco Use Status: Never used Tobacco e-Cigarette/Vaping Use: Never Used Second Hand Smoke Exposure: No service: No Current occupational status: retired Current occupation: right hand dominant Cognitive needs: No Hearing needs: No Vision needs: Yes Female Reproductive History Menstrual Age of Menarche: 11 Total pregnancies: 2 Number of Living Children: 2 Ab induced: 0 Ab spontaneous: 0 Review of Systems Musc Reports back pain, Reports arthralgias, Reports joint swelling, Reports limited range of motion and Reports stiffness Physical Exam Vital Signs: Last Vital Signs Temp 97.2 F 07/05/23 10:48 Pulse 84 07/05/23 10:48 Resp 17 07/05/23 10:48 BP 118/70 07/05/23 10:48 Pulse Ox 99 07/05/23 10:48 Oxygen Delivery Method Room Air 07/05/23 10:48 BMI result Body Mass Index 26.7 Const General: cooperative, healthy appearing and comfortable Nutritional Appearance: overweight Orientation/consciousness: patient oriented x3 Limitations: no limitations HEENT Head: Yes normocephalic and Yes atraumatic Mouth: moist mucous membranes Resp Effort & Inspection: normal respiratory effort and able to speak in complete sentences Auscultation: clear to auscultation bilaterally Cardio Rate: regular rate Rhythm: regular rhythm GI Inspection: No distended Palpation (GI): Soft to palpation and nontender Skin General skin exam: no rashes or lesions noted Neuro General: patient oriented x3 Extrem Other: Positive Oc's test on the right Normal nailfold capillaroscopy Right trochanteric bursa area tenderness with equivocal Ginna's test Negative straight leg raise test bilaterally Mild swelling at the right lateral malleolus Balwinder test 10-15 cm Assessment & Plan Assessment & Plan (1) De Quervain's tenosynovitis, right: Code(s): M65.4 - Radial styloid tenosynovitis [de Quervain] Plan: This is a 62-year-old female presents for evaluation of multiple joint pain. Clinical picture rather consistent with degenerative arthritis. She has de Quervain tenosynovitis on the right. Will prescribe a thumb spica splint. (2) Greater trochanteric bursitis of right hip: Code(s): M70.61 - Trochanteric bursitis, right hip Plan: Discussed different treatment options such as steroid injection, physical therapy or home exercises. Patient opted to do home exercises. I provided patient with a printout of home exercises. Follow-up as needed Plan I spent 47 minutes reviewing patient's chart, evaluating patient, placing orders, counseling patient and documenting in the chart Medications: New [thumb spica] wear nightly & as much as possible throughout the day 1 ea 0RF M65.4 - Radial styloid tenosynovitis [de Quervain] Coding Level of Care Code New Pt Level 4 (87660) Diagnoses De Quervain's tenosynovitis, right M65.4 Greater trochanteric bursitis of right hip M70.61
== END 2023-07-05 11:47 | disposition home or self-care (01) ==
PROVIDERS: PCP Internal Medicine; Visit Provider Student in an Organized Health Care Education/Training Program
DX: M65.4 Radial styloid tenosynovitis [de Quervain] (principal); M70.61 Trochanteric bursitis, right hip
CPT/HCPCS: 99204

== ENCOUNTER → 2023-07-05 10:42 | Outpatient (BNVA) | payer OTHER, SELFPAY | PROVIDERS: PCP Internal Medicine; Visit Provider Student in an Organized Health Care Education/Training Program | DX: M65.4 Radial styloid tenosynovitis [de Quervain] (principal); M70.61 Trochanteric bursitis, right hip | CPT/HCPCS: 99202 ==

== ENCOUNTER 2023-07-20 05:57 | Outpatient (REF) | payer OTHER, SELFPAY ==
[2023-07-20 06:13] LABS: MANUAL DIFF FLAG NO
[2023-07-20 07:13] LABS: Basophils Percent Auto 0.5 % (0-2); Eosinophils Absolute Auto 0.1 X10*3/uL (0.0-0.4); Eosinophils Percent Auto 2.2 % (0-4); Hematocrit 44.5 % (37.0-47.0); Hemoglobin 14.3 g/dl (12.0-16.0); Imm Gran Abs Auto 0.01 X10*3/uL (0.00-0.03); Imm Gran Pct Auto 0.2 % (0.0-0.4); Lymphocytes Absolute Auto 1.6 X10*3/uL (1.2-4.9); Lymphocytes Percent Auto 25.1 % (20-40); Mean Corpuscular HGB Conc 32.1 g/dl (31.0-35.0); Mean Corpuscular Hemoglobin 28.3 pg (27.0-33.0); Mean Corpuscular Volume 87.9 fL (80.0-98.0); Mean Platelet Volume 10.1 fL (9.4-12.3); Monocytes Absolute Auto 0.6 X10*3/uL (0.1-1.2); Monocytes Percent Auto 8.6 % (2-11); Neutrophils Percent Auto 63.4 % (45-73); Platelet Count 345 X10*3/uL (160-400); Red Blood Count 5.06 X10*6/uL (4.20-5.50); Red Cell Distribution Width 15.9 % (11.0-16.0); White Blood Count 6.4 X10*3/uL (4.8-10.8)
[2023-07-20 07:51] LABS: Alanine Aminotransferase 21 U/L (0-31); Albumin Level 4.4 g/dL (3.5-5.0); Alkaline Phosphatase 149 U/L (39-117); Amylase 181 U/L (28-100); Anion Gap 11 (12-20); Aspartate Amino Transferase 20 U/L (5-31); Bilirubin Total 0.5 mg/dL (0.0-1.0); Blood Urea Nitrogen 13 mg/dL (9-16); Calcium 9.5 mg/dL (8.4-10.2); Carbon Dioxide 26 mmol/L (22-29); Chloride 107 mmol/L (96-108); Cholesterol 156 mg/dL (<200); Estimated Glomerular Filt Rate > 60; Glucose Fasting 86 mg/dL (60-99); HDL Cholesterol 49 mg/dL (>40); LDL Cholesterol Calculated 94 mg/dL (<100); Potassium 4.3 mmol/L (3.3-5.1); Sodium 140 mmol/L (135-145); Total Protein 7.7 g/dL (6.5-8.0); Triglycerides 67 mg/dL (<150)
[2023-07-20 08:07] LABS: TSH reflex Free T4 1.21 uIU/mL (0.32-4.0)
[2023-07-20 09:08] LABS: Appearance Urine Clear; Color Urine Yellow; Glucose Urine UA Negative (Negative); Leukocyte Esterase Urine Negative (Negative); Nitrite Urine Negative (Negative); PH 7.5 (5.0-9.0); Urine Blood Negative (Negative); Urine Ketones Negative (Negative); Urine Protein Negative (Neg-Trace)
== END 2023-07-20 05:58 | disposition home or self-care (01) ==
LOC: HO.LAB 05:57
PROVIDERS: PCP Internal Medicine; Visit Provider Internal Medicine
DX: R74.8 Abnormal levels of other serum enzymes (principal); I10 Essential (primary) hypertension; E78.00 Pure hypercholesterolemia, unspecified; R30.0 Dysuria; E55.9 Vitamin D deficiency, unspecified
CPT/HCPCS: 36415; 80053; 80061; 81003; 82150; 82306; 84443; 85025

== ENCOUNTER 2023-07-26 11:01 | Outpatient (AMB) | payer OTHER, SELFPAY ==
[2023-07-26 11:02] VITALS: BP 118/80; PULSE 71; O2SAT 96; BMI 26.2
--- NOTE | 2023-07-26 11:02 | MHC.PC.OV ---
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: No Accompanied by: Self / Same As Patient Allergies No Known Allergies [No Known Allergies*] Allergy (Verified 07/26/23 11:53) Medication List - Last Reconciled 07/26/23 by Yunier Marinelli MD amlodipine 10 mg PO DAILY atorvastatin 40 mg PO BEDTIME 90 days clotrimazole-betamethasone 1-0.05 % 1 appl topical BID 2 weeks diclofenac sodium 75 mg PO BID PRN ergocalciferol (vitamin D2) 1,250 mcg PO QWEEK 90 days lidocaine 4% 1 patch topical DAILY PRN [thumb spica wear nightly & as much as possible throughout the day] trazodone 50 mg PO BEDTIME PRN triamcinolone acetonide 0.5% 1 appl topical BID 14 days Tobacco use date assessed: 03/26/23 Dental Screening Dental Screen Date: 07/26/23 Did you have a dental visit in the last 12 months?: Yes Did you have a dental problem in the last 6 months where you did not have access to dental care?: No Was dental information given to patient?: Patient has dentist HPI [facility] F/U HPI Details Patient comes in today for her follow up visit States that she feels okay She denies any headaches or dizziness Denies any chest pains, no SOB No nausea/vomiting, no abdominal pain No change in bowel habits noted She continues to experience joint pains over several areas, especially over her right hip and at the base of her right thumb Was seen by rheumatology recently for these but she declined cortisone injections and was provided with a wrist/thumb splint for her right thumb States that she tried using the splint for a while but had to take it off as it was actually causing her more pain over her right thumb and wrist rather than helping States that her right hip has been feeling better with the regular exercises that she has been doing Needs her Vitamin D Rx refilled Had her follow up labs done last week - to discuss her results [facility], [facility] Medical History Lumbar disc disease Osteopenia ASCUS of cervix with negative high risk HPV Tinea corporis Overweight (BMI 25.0-29.9) Depression Insomnia Asymptomatic microscopic hematuria Pyuria Carpal tunnel syndrome of right wrist Calcaneal spur Irritable bowel syndrome Elevated LFTs Degenerative arthritis of right knee Constipation Vitamin D deficiency Edema of lower extremity due to peripheral venous insufficiency Hyperamylasemia Generalized pruritus Migraine Pure hypercholesterolemia Benign essential hypertension Colon cancer screening Bowel obstruction Elevated cholesterol HTN (hypertension) Surgical History Status post epidural steroid injection (~2005) History of tubal ligation History of laparotomy History of ear surgery H/O colonoscopy (~07/26/10) History of cholecystectomy Family History Father Medical history unknown Mother Hypertension Son No problems noted. Social History Housing: House Alcohol intake: never Patient Tobacco Use Status: Never used Tobacco e-Cigarette/Vaping Use: Never Used Second Hand Smoke Exposure: No service: No Current occupational status: retired Current occupation: right hand dominant Cognitive needs: No Hearing needs: No Vision needs: Yes Female Reproductive History Menstrual Age of Menarche: 11 Questionnaire PHQ-9 Over the last 2 weeks, how often have you been bothered by any of the following problems? Depression Screening Interpretation: Negative Depression Screening Done: Yes Source: Developed by Drs. Trip Patton, Demetrio Miles and colleagues, with an educational miah from [email or web address]. Thrive Questionnaire Date Thrive assessed: 03/26/23 Currently or been in a relationship where the following occur: no concerns reported NATHAN-7 AMB Questionnaire NATHAN-7 Date NATHAN - 7 assessed: 03/26/23 Source: Developed by Melinda Weiner Kurt Kroenke and colleagues, with an educational miah from [email or web address]. Review of Systems Const Reports fatigue, Denies fever(s) and Denies headache(s) ENT Denies dysphagia, Denies dizziness, Denies otalgia, Denies headache(s) and Denies sore throat Card Denies chest pain, Denies palpitations and Denies dyspnea Resp Denies cough and Denies dyspnea GI Denies abdominal pain, Denies constipation, Denies dysphagia, Denies heartburn, Denies diarrhea, Denies nausea and Denies vomiting Denies difficulty voiding, Denies nocturia, Denies dysuria and Denies urinary urgency Musc Details: Patient still has right thigh pain that increases with activity and prolonged walking; her right shoulder pain is better-controlled lately Reports back pain (on and off over the lower back), Reports arthralgias (right hip (better lately); base of right thumb - still bothering her a lot) and Denies joint swelling Skin/Breast Denies rash Neuro Denies dizziness and Denies headache(s) Endo Reports fatigue and Denies palpitations Physical exam (Primary Care) Vital Signs: Last Vital Signs Pulse 71 07/26/23 11:02 BP 118/80 07/26/23 11:02 Pulse Ox 96 07/26/23 11:02 Oxygen Delivery Method Room Air 07/26/23 11:02 BMI result Body Mass Index 26.2 Tobacco/Smoking Status: Tobacco use Status Tobacco use date assessed 03/26/23 07/26/23 11:03 Patient Tobacco Use Status Never used Tobacco 07/26/23 11:03 e-Cigarette/Vaping Use Never Used 07/26/23 11:03 Depression Screening Interpretation: Negative Thrive Assessment: Date of Thrive Assessment Date Thrive assessed 03/26/23 07/26/23 11:03 Currently or been in a relationship where the following occur: no concerns reported Const General: no acute distress and alert HENMT Ears: TM's normal bilaterally and EAC's normal Throat: Yes posterior oropharynx normal and Yes tonsils normal Neck Neck: Yes no lymphadenopathy and Yes supple Resp Auscultation: clear to auscultation bilaterally, no rales and no wheezes Cardio Rate: regular rate Rhythm: regular rhythm Heart sounds: no murmurs GI Palpation (GI): Soft to palpation and nontender Auscultation: normal bowel sounds Back/Spine/Pelvis Thoracic/Lumbar Spine: lumbar spinal tenderness Skin Rashes: no rashes Extrem General: Yes no clubbing, cyanosis or edema Right upper extremity: shoulder/upper arm Details: tenderness (mild) and Extremity exam: right hand Details: tenderness Location: of the thumb Location: at the MCP joint Right lower extremity: hip/thigh Details: tenderness Location: of the hip Location: laterally (tenderness radiating down lateral aspect of thigh often) Results Reviewed Results Reviewed: Laboratory Tests 07/20/23 07/20/23 07/20/23 06:06 06:09 06:09 WBC 6.4 Hgb 14.3 Hct 44.5 Plt Count 345 Sodium 140 Potassium 4.3 Creatinine 0.79 Estimated GFR > 60 Fasting Glucose 86 Calcium 9.5 AST 20 ALT 21 Alkaline Phosphatase 149 H Triglycerides 67 Cholesterol 156 LDL Cholesterol, Calc 94 HDL Cholesterol 49 Amylase 181 H 25-OH Vitamin D Total 44.0 TSH 1.21 Ur Specific [place] 1.010 Urine Protein Negative Urine Glucose (UA) Negative Urine Blood Negative Assessment and Plan Assessment & Plan (1) Pure hypercholesterolemia: Code(s): E78.00 - Pure hypercholesterolemia, unspecified Plan: Results of her labs done last week reviewed and discussed with patient Reinforced low cholesterol diet Continue Atorvastatin 40 mg QD Will recheck her labs and fasting lipids in 4 months for follow up (2) Benign essential hypertension: Code(s): I10 - Essential (primary) hypertension Plan: Reinforced low sodium diet - goal is systolic BP of at least 120 to 130 mm or less Continue Amlodipine 10 mg QD (3) Elevated LFTs: Code(s): R79.89 - Other specified abnormal findings of blood chemistry Plan: Improved; LFTs have remained normal on her recent labs - will continue to monitor regularly Abdominal US done last year came out normal; US done back in November 2012 was also normal, with limited visualization of the tail of the pancreas due to bowel gas. There were also some right renal cysts noted incidentally (4) Migraine: Code(s): G43.909 - Migraine, unspecified, not intractable, without status migrainosus Qualifiers: Migraine type: unspecified Status migrainosus presence: without status migrainosus Intractability: not intractable Qualified Code(s): G43.909 - Migraine, unspecified, not intractable, without status migrainosus Plan: Stable with no acute flare ups of her migraine headaches lately (5) Hyperamylasemia: Code(s): R74.8 - Abnormal levels of other serum enzymes Plan: Stable - will continue to monitor her serum amylase level regularly Unclear if this has anything to do at all with her small bowel surgery (Meckel's diverticulum resection and lysis of adhesions) back in 1997 (6) Generalized pruritus: Code(s): L29.9 - Pruritus, unspecified Plan: Has been seen and evaluated by interactive media project manager previously and was diagnosed with atopic dermatitis Was supposed to be scheduled for allergy testing but this was postponed and has yet to be done - patient prefers to continue holding off on this as she has not had any significant issues with her dermatitis since (7) Vitamin D deficiency: Code(s): E55.9 - Vitamin D deficiency, unspecified Plan: Continue Vitamin D2 38769 units once a week (Rx refilled) (8) Right hip pain: Code(s): M25.551 - Pain in right hip Plan: Feels that her right hip pain has improved somewhat lately with regular exercises and stretching Follow up with rheumatology as scheduled (9) Painful arc syndrome of right shoulder: Code(s): M75.101 - Unspecified rotator cuff tear or rupture of right shoulder, not specified as traumatic Plan: Received cortisone injection into her shoulder from orthopedics earlier this year with little relief MRI of the shoulder done in August 2022 revealed (+) 1 cm bursal-sided partial tear of the supraspinatus tendon with mild to moderate associated tendinosis with NO muscl atrophy. There is also moderate acromioclavicular osteoarthritis, mild subacromial subdeltoid bursitis and minimal glenohumeral osteoarthritis S/P physical therapy with some improvement and she continues to do the shoulder exercises on her own regularly to help manage her shoulder symptoms Follow up with orthopedics as scheduled (10) Degenerative arthritis of right knee: Code(s): M17.11 - Unilateral primary osteoarthritis, right knee Qualifiers: Osteoarthritis type: primary Qualified Code(s): M17.11 - Unilateral primary osteoarthritis, right knee Plan: Knee pain has been mostly manageable X-rays done back in March 2017 showed (+) mild arthritis changes that are similar to findings in July 2015 Follow up with orthopedics as scheduled or as needed (11) Lumbar disc disease: Comment: (+) moderate L5-S1 disc dessication with mild end plate irregularities seen on lumbar spine CT done on 11/13/2005 Code(s): M51.9 - Unspecified thoracic, thoracolumbar and lumbosacral intervertebral disc disorder Plan: Repeat lumbar spine x-rays doen on 11/30/2022 revealed (+) mild to moderate degenerative changes at L4-L5 and L5-S1 Reinforced activity and weight-lifting restrictions to minimize aggravating her lower back (12) Pain of right thumb: Code(s): M79.644 - Pain in right finger(s) Plan: Most likely has De Quervain's tenosynovitis Per request, will send her for x-rays but advised that this will most likely come out normal or show some OA changes Will also refer her to physical therapy for further management Advised that if PT does not help, then the only option left will be cortisone injection and she will have to check back with rheumatology for this (13) Irritable bowel syndrome: Code(s): K58.9 - Irritable bowel syndrome without diarrhea Qualifiers: Irritable bowel syndrome type: unspecified Qualified Code(s): K58.9 - Irritable bowel syndrome without diarrhea Plan: Stable - follow up with GI as scheduled (14) Constipation: Code(s): K59.00 - Constipation, unspecified Qualifiers: Constipation type: unspecified constipation type Qualified Code(s): K59.00 - Constipation, unspecified Plan: Improved - reinforced increased oral fluids and dietary fiber Continue Senna 8.6 mg 1 to 2 tablets QD PRN (15) Osteopenia: Code(s): M85.80 - Other specified disorders of bone density and structure, unspecified site Qualifiers: Osteopenia location: unspecified Qualified Code(s): M85.80 - Other specified disorders of bone density and structure, unspecified site Plan: Repeat BMD done on 08/17/2021 revealed (+) osteopenia, with an 8.0% decline in BMD in the left femur from previous Patient encouraged to continue to exercise regularly and stay active as well as continue with her daily vitamin-D and calcium supplements Will continue to monitor her BMD regularly (16) Asymptomatic microscopic hematuria: Code(s): R31.21 - Asymptomatic microscopic hematuria Plan: Renal ultrasound done in July 2020 revealed (+) bilateral renal cysts, greater in the right kidney; US was otherwise normal Her recent urinalysis done last week came out normal with NO RBCs in the urine Will continue to monitor this regularly (17) Insomnia: Code(s): G47.00 - Insomnia, unspecified Qualifiers: Insomnia type: unspecified Qualified Code(s): G47.00 - Insomnia, unspecified Plan: Sleep hygiene reinforced Continue Lorazepam 1 mg once a day at bedtime as needed and Trazodone 50 mg daily at bedtime as needed - states that she does not take any of these regularly as she does not want to risk developing dependence on sleep aids over time (18) Depression: Code(s): F32.9 - Major depressive disorder, single episode, unspecified Qualifiers: Depression Type: major depressive disorder Major depression recurrence: recurrent Active/Remission status: currently active Major depression episode severity: unspecified Qualified Code(s): F33.9 - Major depressive disorder, recurrent, unspecified Plan: Feels that her depression is still under control and she still does not need any intervention at this time Plan Follow up in 4 months Orders: Orders XR hand RT min 3V Today M65.4 - Radial styloid tenosynovitis [de Quervain], M79.644 - Pain in right finger(s) PT Evaluation and Treatment Today M65.4 - Radial styloid tenosynovitis [de Quervain], M79.644 - Pain in right finger(s) Amylase 4 Months R74.8 - Abnormal levels of other serum enzymes Complete Blood Count Auto Diff 4 Months I10 - Essential (primary) hypertension Comprehensive [place]. Panel Fast 4 Months E78.00 - Pure hypercholesterolemia, unspecified Lipid Panel 4 Months E78.00 - Pure hypercholesterolemia, unspecified Medications: Refilled ergocalciferol (vitamin D2) 1,250 mcg PO QWEEK 90 days 13 caps 1RF E55.9 - Vitamin D deficiency, unspecified Coding Level of Care Code Est Pt Level 4 (16905) Diagnoses Pure hypercholesterolemia E78.00 Benign essential hypertension I10 Elevated LFTs R79.89 Migraine without status migrainosus, not intractable, unspecified migraine type G43.909 Migraine type: unspecified Status migrainosus presence: without status migrainosus Intractability: not intractable Hyperamylasemia R74.8 Generalized pruritus L29.9 Vitamin D deficiency E55.9 Right hip pain M25.551 Painful arc syndrome of right shoulder M75.101 Primary osteoarthritis of right knee M17.11 Osteoarthritis type: primary Lumbar disc disease M51.9 Pain of right thumb M79.644 Irritable bowel syndrome, unspecified type K58.9 Irritable bowel syndrome type: unspecified Constipation, unspecified constipation type K59.00 Constipation type: unspecified constipation type Osteopenia, unspecified location M85.80 Osteopenia location: unspecified Asymptomatic microscopic hematuria R31.21 Insomnia, unspecified type G47.00 Insomnia type: unspecified Episode of recurrent major depressive disorder, unspecified depression episode severity F33.9 Depression Type: major depressive disorder Major depression recurrence: recurrent Active/Remission status: currently active Major depression episode severity: unspecified
== END 2023-07-26 12:15 | disposition home or self-care (01) ==
PROVIDERS: PCP Internal Medicine; Visit Provider Internal Medicine
DX: E78.00 Pure hypercholesterolemia, unspecified (principal); I10 Essential (primary) hypertension; R79.89 Other specified abnormal findings of blood chemistry; F33.9 Major depressive disorder, recurrent, unspecified; G43.909 Migraine, unspecified, not intractable, without status migrainosus; R74.8 Abnormal levels of other serum enzymes; L29.9 Pruritus, unspecified; E55.9 Vitamin D deficiency, unspecified; M25.551 Pain in right hip; M75.101 Unspecified rotator cuff tear or rupture of right shoulder, not specified as traumatic; M17.11 Unilateral primary osteoarthritis, right knee; M51.9 Unspecified thoracic, thoracolumbar and lumbosacral intervertebral disc disorder
CPT/HCPCS: 99214

== ENCOUNTER 2023-08-08 09:40 | Outpatient (REF) | payer OTHER, SELFPAY ==
--- NOTE | ~2023-08-08 | XR_ITS ---
EXAMINATION: XR HAND, RIGHT CLINICAL INFORMATION: Radial styloid tenosynovitis. COMPARISON: None available. TECHNIQUE: PA, lateral, and oblique views of the right hand. FINDINGS: First carpometacarpal joint: Suspect small marginal osteophytes without joint space narrowing indicative of mild osteoarthritis. Remaining bones joints and soft tissues normal. XR/XR hand RT min 3V IMPRESSION: Mild osteoarthritis of the 1st carpometacarpal joint.
== END 2023-08-08 09:41 | disposition home or self-care (01) ==
LOC: HO.XRAY 09:40
PROVIDERS: PCP Internal Medicine; Referring Provider Student in an Organized Health Care Education/Training Program; Visit Provider Internal Medicine
DX: M65.4 Radial styloid tenosynovitis [de Quervain] (principal); M79.644 Pain in right finger(s)
CPT/HCPCS: 73130

== ENCOUNTER 2023-08-29 10:29 | Outpatient (AMB) | payer OTHER, SELFPAY ==
--- NOTE | 2023-08-29 11:00 | MHC.OFFVIS ---
Intake Vital Signs 08/29/23 11:01 Height 5 ft 3 in Weight 152 lb 1.903 oz BMI 26.9 BP 118/64 Blood Pressure Location Lt brachial Position Sitting Pulse 76 Pulse Source Pulse Oximeter Temp 97.2 F Temp Source Skin Pulse Oximetry (%) 97 Oxygen Delivery Method Room Air Intake Visit Reasons: pain in right wrist Intake Note: Patient last seen 07/05/23 presents today for worsening right wrist pain. Completed medrol dosepak; Reports started OT 2x weekly. Patient requesting injection and referral for acupuncture. States she thinks there is something broken Quality Supervisor Required: No Accompanied by: Self / Same As Patient Allergies No Known Allergies [No Known Allergies*] Allergy (Verified 08/29/23 11:03) Medication List - Last Reconciled 08/29/23 by Tucker Thompson MD amlodipine 10 mg PO DAILY atorvastatin 40 mg PO BEDTIME 90 days clotrimazole-betamethasone 1-0.05 % 1 appl topical BID 2 weeks diclofenac sodium 75 mg PO BID PRN ergocalciferol (vitamin D2) 1,250 mcg PO QWEEK 90 days lidocaine 4% 1 patch topical DAILY PRN [thumb spica wear nightly & as much as possible throughout the day] trazodone 50 mg PO BEDTIME PRN triamcinolone acetonide 0.5% 1 appl topical BID 14 days HPI HPI Comments History of Present Illness Details Patient returns for follow-up after completion of her diagnostic workup. She just started occupational therapy for her right hand. She did 1 session show far. She states that she should do sessions twice a week. States that her right hand steroids. She is worried about a fracture as she had fallen prior to her pain starting. She continues to have Initial history: This is a 62-year-old female was referred for evaluation of multiple joint pain. Patient has known history of degenerative arthritis of her lumbar spine. She received an epidural steroid injection about 15 years ago. She states that she has been having bilateral hip pain for a few months now. Worse on the right. She has difficulty with leaning down. Recently she has been having pain in her right wrist. States that it started after she strained her right wrist when she was closing a door. She has been wearing a right wrist splint. Also mention that month and half ago she fell and twisted her right ankle. She is unaware of any family history of an autoimmune rheumatic disease. [facility] Medical History Lumbar disc disease Osteopenia ASCUS of cervix with negative high risk HPV Tinea corporis Overweight (BMI 25.0-29.9) Depression Insomnia Asymptomatic microscopic hematuria Pyuria Carpal tunnel syndrome of right wrist Calcaneal spur Irritable bowel syndrome Elevated LFTs Degenerative arthritis of right knee Constipation Vitamin D deficiency Edema of lower extremity due to peripheral venous insufficiency Hyperamylasemia Generalized pruritus Migraine Pure hypercholesterolemia Benign essential hypertension Colon cancer screening Bowel obstruction Elevated cholesterol HTN (hypertension) Surgical History Status post epidural steroid injection (~2005) History of tubal ligation History of laparotomy History of ear surgery H/O colonoscopy (~07/26/10) History of cholecystectomy Family History Father Medical history unknown Mother Hypertension Son No problems noted. Social History Housing: House Alcohol intake: never Patient Tobacco Use Status: Never used Tobacco e-Cigarette/Vaping Use: Never Used Second Hand Smoke Exposure: No service: No Current occupational status: retired Current occupation: right hand dominant Cognitive needs: No Hearing needs: No Vision needs: Yes Female Reproductive History Menstrual Age of Menarche: 11 Physical Exam Vital Signs: Last Vital Signs Temp 97.2 F 08/29/23 11:01 Pulse 76 08/29/23 11:01 BP 118/64 08/29/23 11:01 Pulse Ox 97 08/29/23 11:01 Oxygen Delivery Method Room Air 08/29/23 11:01 BMI result Body Mass Index 26.9 Const General: cooperative, healthy appearing and comfortable Nutritional Appearance: overweight Orientation/consciousness: patient oriented x3 Limitations: no limitations HEENT Head: Yes normocephalic and Yes atraumatic Mouth: moist mucous membranes Resp Effort & Inspection: normal respiratory effort and able to speak in complete sentences Cardio Rate: regular rate Rhythm: regular rhythm GI Inspection: No distended Palpation (GI): Soft to palpation and nontender Skin General skin exam: no rashes or lesions noted Neuro General: patient oriented x3 Extrem Other: Positive Oc's test on the right and tenderness along the right radial styloid Normal nailfold capillaroscopy Right trochanteric bursa area tenderness with equivocal Ginna's test Negative straight leg raise test bilaterally Assessment & Plan Assessment & Plan (1) De Quervain's tenosynovitis, right: Code(s): M65.4 - Radial styloid tenosynovitis [de Quervain] Plan: Continue with a thumb spica splint. Patient just started occupational therapy. I referred patient to hand surgery for further evaluation. Patient did have a fall prior to the onset of her pain. If patient continues to have persistent right wrist pain, will consider an MRI to rule out a fracture (2) Greater trochanteric bursitis of right hip: Code(s): M70.61 - Trochanteric bursitis, right hip Plan: Not particularly bothersome for patient at the moment. Plan I spent 17 minutes reviewing patient's chart, evaluating patient, placing orders, counseling patient and documenting in the chart Orders: Referrals Hand Surgery Referral M65.4 - Radial styloid tenosynovitis [de Quervain] Coding Level of Care Code Est Pt Level 3 (90765) Diagnoses De Quervain's tenosynovitis, right M65.4 Greater trochanteric bursitis of right hip M70.61
[2023-08-29 11:01] VITALS: BP 118/64; PULSE 76; TEMP 36.2; O2SAT 97; BMI 26.9
== END 2023-08-29 11:59 | disposition home or self-care (01) ==
PROVIDERS: PCP Internal Medicine; Visit Provider Student in an Organized Health Care Education/Training Program
DX: M65.4 Radial styloid tenosynovitis [de Quervain] (principal)
CPT/HCPCS: 99213

== ENCOUNTER → 2023-08-29 10:29 | Outpatient (BNVA) | payer OTHER, SELFPAY | PROVIDERS: PCP Internal Medicine; Visit Provider Student in an Organized Health Care Education/Training Program | DX: M65.4 Radial styloid tenosynovitis [de Quervain] (principal); M70.61 Trochanteric bursitis, right hip | CPT/HCPCS: 99212 ==

== ENCOUNTER 2023-09-11 16:22 | Outpatient (AMB) | payer OTHER, SELFPAY ==
[2023-09-11 16:51] VITALS: BP 124/76; PULSE 84; O2SAT 97; BMI 26.4
--- NOTE | 2023-09-11 16:51 | MHC.PC.OV ---
Vital Signs 09/11/23 16:51 Height 5 ft 3 in Weight 149 lb BMI 26.4 BP 124/76 Blood Pressure Location Lt brachial Position Sitting Pulse 84 Pulse Source Pulse Oximeter Pulse Oximetry (%) 97 Oxygen Delivery Method Room Air Intake Visit Reasons: Dark spot on head [employer] Consultant Required: No Accompanied by: Self / Same As Patient Allergies No Known Allergies [No Known Allergies*] Allergy (Verified 09/11/23 17:10) Medication List - Last Reconciled 09/11/23 by Yunier Marinelli MD amlodipine 10 mg PO DAILY atorvastatin 40 mg PO BEDTIME 90 days clotrimazole-betamethasone 1-0.05 % 1 appl topical BID 2 weeks diclofenac sodium 75 mg PO BID PRN ergocalciferol (vitamin D2) 1,250 mcg PO QWEEK 90 days lidocaine 4% 1 patch topical DAILY PRN [thumb spica wear nightly & as much as possible throughout the day] trazodone 50 mg PO BEDTIME PRN triamcinolone acetonide 0.5% 1 appl topical BID 14 days Tobacco use date assessed: 09/11/23 Fall risk assessment: 1 Fall in past year Last assessed Fall Risk: 09/11/23 Dental Screening Dental Screen Date: 09/11/23 Did you have a dental visit in the last 12 months?: Yes Did you have a dental problem in the last 6 months where you did not have access to dental care?: No Was dental information given to patient?: Patient has dentist HPI Dark spot on head HPI Details Patient comes in today mainly for evaluation of multiple scattered dark spots on her scalp that her daughter first noticed about 3 weeks ago Patient states that the lesions do not itch or hurt so she would not have known about them if her daughter did not discover them a few weeks ago She denies any fever, headaches or dizziness Denies any recent weight loss No other acute complaints or symptoms are noted [facility] Medical History Lumbar disc disease Osteopenia ASCUS of cervix with negative high risk HPV Tinea corporis Overweight (BMI 25.0-29.9) Depression Insomnia Asymptomatic microscopic hematuria Pyuria Carpal tunnel syndrome of right wrist Calcaneal spur Irritable bowel syndrome Elevated LFTs Degenerative arthritis of right knee Constipation Vitamin D deficiency Edema of lower extremity due to peripheral venous insufficiency Hyperamylasemia Generalized pruritus Migraine Pure hypercholesterolemia Benign essential hypertension Colon cancer screening Bowel obstruction Elevated cholesterol HTN (hypertension) Surgical History Status post epidural steroid injection (~2005) History of tubal ligation History of laparotomy History of ear surgery H/O colonoscopy (~07/26/10) History of cholecystectomy Family History Father Medical history unknown Mother Hypertension Son No problems noted. Social History Housing: House Alcohol intake: never Patient Tobacco Use Status: Never used Tobacco e-Cigarette/Vaping Use: Never Used Second Hand Smoke Exposure: No service: No Current occupational status: retired Current occupation: right hand dominant Cognitive needs: No Hearing needs: No Vision needs: Yes Female Reproductive History Menstrual Age of Menarche: 11 Questionnaire PHQ-9 Over the last 2 weeks, how often have you been bothered by any of the following problems? 1. Little interest or pleasure in doing things: not at all 2. Feeling down, depressed, or hopeless: not at all 3. Trouble falling or staying asleep, or sleeping too much: not at all 4. Feeling tired or having little energy: not at all 5. Poor appetite or overeating: not at all 6. Feeling bad about yourself - or that you are a failure or have let yourself or your family down: not at all 7. Trouble concentrating on things, such as reading the newspaper or watching television: not at all 8. Moving or speaking so slowly that other people could have noticed. Or the opposite - being so fidgety or restless that you have been moving around a lot more than usual: not at all 9. Thoughts that you would be better off or of hurting yourself in some way: not at all Total score: 0 Depression Screening Interpretation: Negative Depression Screening Done: Yes 57428 - PHQ-9 Billing: Yes Source: Developed by Drs. Trip Patton, Melinda Norris, Demetrio Bella and colleagues, with an educational miah from [employer]. Thrive Questionnaire Date Thrive assessed: 02/13/24 I am a: Patient What is your living situation today?: I have a steady place to live Within the past 12 months, did the food you bought not last and you didn't have the money to get more?: Never true Within the past 12 months, did you worry whether your food would run out before you got money to buy more?: Never true Do you have trouble paying for medicines?: No Do you have trouble getting transportation to medical appointments?: No Do you have trouble paying your heating and electricity bill?: No Do you have trouble taking care of your child, family member or friend?: No Do you have trouble with day-to-day activities such as bathing, preparing meals, shopping, managing finances, etc.?: No Are you currently unemployed and looking for a job?: No Are you interested in more education?: No Please select the resources that you would like help with: None Currently or been in a relationship where the following occur: no concerns reported THRIVE Score: 0 AUDIT C Alcohol Use Questionnaire (AUDIT-C) 1. How often do you have a drink containing alcohol?: Never 3. How often do you have six or more drinks on one occasion?: Never Total Score: 0 Score Reviewed/Action Taken: Yes NATHAN-7 AMB Questionnaire NATHAN-7 Date NATHAN - 7 assessed: 09/11/23 Feeling nervous, anxious, or on edge: 0 = Not at all Not being able to stop or control worryin = Not at all Worrying too much about different things: 0 = Not at all Trouble relaxin = Not at all Being so restless that it is hard to sit still: 0 = Not at all Becoming easily annoyed or irritable: 0 = Not at all Feeling afraid as if something awful might happen: 0 = Not at all Total NATHAN-7 score (0-4 normal; 5-9 mild; 10-14 moderate; 15-21 severe): 0 Source: Developed by Drs. Trip Patton, Melinda Norris, Demetrio Bella and colleagues, with an educational miah from [employer]. Review of Systems Const Denies fatigue, Denies fever(s) and Denies headache(s) ENT Denies dysphagia, Denies dizziness, Denies headache(s), Denies odynophagia and Denies sore throat Card Denies chest pain, Denies palpitations and Denies dyspnea Resp Denies cough and Denies dyspnea GI Denies abdominal pain, Denies dysphagia, Denies diarrhea, Denies nausea, Denies odynophagia and Denies vomiting Denies difficulty voiding, Denies nocturia and Denies dysuria Skin/Breast Details: (+) scattered multiple dark lesions on the scalp - see HPI Neuro Denies dizziness and Denies headache(s) Endo Denies fatigue and Denies palpitations Physical exam (Primary Care) Vital Signs: Last Vital Signs Pulse 84 09/11/23 16:51 BP 124/76 09/11/23 16:51 Pulse Ox 97 09/11/23 16:51 Oxygen Delivery Method Room Air 09/11/23 16:51 BMI result Body Mass Index 26.4 Tobacco/Smoking Status: Tobacco use Status Tobacco use date assessed 09/11/23 09/11/23 16:57 Patient Tobacco Use Status Never used Tobacco 09/11/23 16:57 e-Cigarette/Vaping Use Never Used 09/11/23 16:57 PHQ-9: PHQ-9 Score PHQ-9: Total score 0 09/11/23 17:04 Depression Screening Interpretation: Negative Thrive Assessment: Date of Thrive Assessment Date Thrive assessed 09/11/23 09/11/23 16:57 Currently or been in a relationship where the following occur: no concerns reported Const General: no acute distress and alert HENMT Throat: Yes posterior oropharynx normal and Yes tonsils normal Neck Neck: Yes no lymphadenopathy and Yes supple Resp Auscultation: clear to auscultation bilaterally, no rales and no wheezes Cardio Rate: regular rate Rhythm: regular rhythm Heart sounds: no murmurs GI Palpation (GI): Soft to palpation and nontender Auscultation: normal bowel sounds Back/Spine/Pelvis Thoracic/Lumbar Spine: lumbar spinal tenderness Skin Other: (+) scattered multiple hyperpigmented lesions on the scalp, especially over the frontoparietal scalp areas; lesions are non-tender on palpation/exam Extrem General: Yes no clubbing, cyanosis or edema Assessment and Plan Assessment & Plan (1) Scalp lesion: Code(s): L98.9 - Disorder of the skin and subcutaneous tissue, unspecified Plan: Will refer patient to dermatology for further evaluation and management Plan Follow up as scheduled in October 2023 Orders: Referrals Dermatology Referral L98.9 - Disorder of the skin and subcutaneous tissue, unspecified Coding Level of Care Code Est Pt Level 3 (93622) Diagnoses Scalp lesion L98.9
== END 2023-09-11 17:09 | disposition home or self-care (01) ==
PROVIDERS: PCP Internal Medicine; Visit Provider Internal Medicine
DX: L98.9 Disorder of the skin and subcutaneous tissue, unspecified (principal)
CPT/HCPCS: 99213

== ENCOUNTER 2023-10-03 09:30 | Outpatient (RCR) | payer OTHER, SELFPAY ==
--- NOTE | 2023-08-24 09:05 | MHC.OT.EP ---
[address] [phone] Occupational Therapy Plan of Care Patient Name: Luda Schwarz Date of Evaluation: 08/23/23 Diagnosis: De Quervains , right wrist Pain Location: 0-7 Pain Score: 7 Pain Scale Used: Numeric (0 - 10) Aggravating Factors: Use of right thumb with writing, gripping , pinching, lifting... Alleviating Factors: Avoiding use Assessment: Pt is a 63 yo female with a 3 month history of worsening of right thumb and radial wrist pain after a fall. XR shows mild right 1st CMC joint OA. and pt has a ho right CTS Today pt presents with S+S consistent with her diagnosis of De Quervains tenosynovitis with underlying CMCj OA Pt with benefit from OT for Pt ed in joint protection and self management , and treatment to reduce pain and regain pain free use of her right dominant hand Frequency and Duration: The patient will be seen 2x wk x 6 wks Short Term Goals: Demo awareness of joint protection for De Quervains and for CTS with daily activities Avoid twisting string mop Demo HEP Dec pain with use of thermal modalities Wrist flexion to 60 deg Wrist ulnar deviation to >20 deg Intermediate Goals: Pain free right wrist and thumb AROM Wrist extension to 65 deg Wrist flexion to 65 deg Wrist ulnar dev to 25 deg Demo safe lift from waist to chest up to 20 lb Report inc ease with writing and keyboard 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 Thank you once again for your referral.
--- NOTE | 2023-10-09 09:16 | MHC.OT.DC ---
[address] [phone] F: [phone] Occupational Therapy Discharge Note Patient Name: Luda Schwarz Provider: Yunier Marinelli Diagnosis: De Quervains , right wrist Date of Surgery: Date of Evaluation: 08/23/23 Date of Discharge: 10/09/23 Treatments to Date: 7 Cancellations to Date: No Shows to Date: Discharge Status: Patient Elected to Stop Recommend MD Follow-up Discharge Summary: Pt reports continued high pain with use of her right hand with light daily activities , wrist ROM and thumb extension. She reports she has minimized mopping and stirring rice and beans to 1x a wk and other wrist protection techniques Wrist ROM for extension and wrist flexion increased . Ulnar deviation is unchanged Admissions Director strength is unchanged Pt declines continued OT at this time. Electronically Signed By: Jayda Burkett OT CHT CLT Reviewed/agree with student documentation: Therapist: Please Sign and return to therapist, thank you for your referral.
== END 2023-10-09 09:17 | disposition home or self-care (01) ==
LOC: HO.OT 09:30
PROVIDERS: PCP Internal Medicine; Visit Provider Internal Medicine
DX: M65.4 Radial styloid tenosynovitis [de Quervain] (principal); M79.644 Pain in right finger(s)
CPT/HCPCS: 97033; 97035; 97110; 97140; 97166

== ENCOUNTER 2023-10-16 10:37 | Outpatient (AMB) | payer OTHER, SELFPAY ==
[2023-10-16 10:38] VITALS: BMI 26.4
--- NOTE | 2023-10-16 10:38 | MHC.OFFVIS ---
Intake Vital Signs 10/16/23 10:38 Height 5 ft 3 in Weight 149 lb BMI 26.4 Intake Visit Reasons: New prob/ rt hand dequervain Intake Note: Luda 63 yr old female who is right hand dominant, presents today for her right hand. States she is experiencing pain at the base of her thumb for the last 5 months. She has seen her PCP who ordered O.T and referred to Orthopedic. States she attended about 7 sessions of O.T hand has no relief. Pain is triggered with pinching, twisting and gripping. States she has a brace that she wears at night time. Denies numbness or tinglin. Allergies No Known Allergies [No Known Allergies*] Allergy (Verified 10/16/23 10:48) HPI New prob/ rt hand dequervain HPI Details Luda is a 63 year old right hand dominant woman who presents with complaints of right wrist pain. She complains of ~5 months right radial sided wrist pain, which she says began after a fall. Her pain is worse with pinching, gripping, or twisting activities. She wears a thumb splint at night, and has been attending OT with no improvement. 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 She was referred here by Dr. Thompson. She denies any Rheumatologic medications. She found no relief from a Medrol dosepak given by Rheumatology. [facility] Medical History Lumbar disc disease Osteopenia ASCUS of cervix with negative high risk HPV Tinea corporis Overweight (BMI 25.0-29.9) Depression Insomnia Asymptomatic microscopic hematuria Pyuria Carpal tunnel syndrome of right wrist Calcaneal spur Irritable bowel syndrome Elevated LFTs Degenerative arthritis of right knee Constipation Vitamin D deficiency Edema of lower extremity due to peripheral venous insufficiency Hyperamylasemia Generalized pruritus Migraine Pure hypercholesterolemia Benign essential hypertension Colon cancer screening Bowel obstruction Elevated cholesterol HTN (hypertension) Surgical History Status post epidural steroid injection (~2005) History of tubal ligation History of laparotomy History of ear surgery H/O colonoscopy (~07/26/10) History of cholecystectomy Family History Father Medical history unknown Mother Hypertension Son No problems noted. Social History Housing: House Alcohol intake: never Patient Tobacco Use Status: Never used Tobacco e-Cigarette/Vaping Use: Never Used Second Hand Smoke Exposure: No service: No Current occupational status: retired Current occupation: right hand dominant Cognitive needs: No Hearing needs: No Vision needs: Yes Female Reproductive History Menstrual Age of Menarche: 11 Review of Systems Const All systems reviewed & are unremarkable except as noted in HPI and below Physical Exam Vital Signs: BMI result Body Mass Index 26.4 Const General: cooperative, healthy appearing and no acute distress Orientation/consciousness: patient oriented x3 HEENT Head: Yes normocephalic and Yes atraumatic Eyes EOM: EOMs intact bilaterally Resp Effort & Inspection: normal respiratory effort and able to speak in complete sentences Cardio Jugular venous distension: no JVD Skin General skin exam: turgor normal Rashes: no rashes Neuro General: patient oriented x3 Extrem Other: Evaluation of Right Upper Extremity: The patient is alert, oriented, and in no acute distress Neuro: Median, Ulnar, Radial nerves motor and sensory intact and sensation is normal to the tips of all digits Vascular: Cap refill brisk ROM: She can make a fist and extend all her digits No locking or catching Skin: No lacerations or abrasions. General: No Ecchymosis. No Erythema or evidence of infection. Most Tender over the 1st dorsal compartment Positive Oc test on the right Negative Oc test on the left No tenderness over the Basal joint No tenderness over the MCP joint or A1 fly of the thumb Radiographs: 3 views of the right hand from 08/08/23 were reviewed by me today in clinic. They show no fractures or dislocations. She has some mild basal joint arthritis with early osteophyte formation. Psych Appearance: grossly normal Affect: normal affect Attitude: cooperative Office Procedures Fracture Care Details: No fracture, injection Fracture Billing Code: Fracture Billing Code Assessment & Plan Assessment & Plan (1) De Quervain's tenosynovitis, right: Code(s): M65.4 - Radial styloid tenosynovitis [de Quervain] Plan Assessment & plan 1. 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 Once consent was obtained, I sterilely prepped the area over the 1st dorsal compartment of the right thumb. I then injected the 1st dorsal compartment with a combination of 1 mL of dexamethasone (4mg/ml), and 1% lidocaine. The patient tolerated the procedure well with no complications and good resolution of their symptoms prior to leaving clinic. If the patient continues to have pain 6-8 weeks following this injection, they may call to schedule appointment to discuss alternative treatment options she will follow up prn Scribed for Sabrina Holt MD by Lazaro Bhakta, medical education manager, on 10/16/23 at 11:05 AM, EST. Coding Level of Care Code New Pt Level 3 (76563) Diagnoses De Quervain's tenosynovitis, right M65.4 CPT Codes Fracture Care - Fracture Billing Code: Fracture Billing Code ([id number])
== END 2023-10-16 11:44 | disposition home or self-care (01) ==
PROVIDERS: PCP Internal Medicine; Visit Provider Orthopaedic Surgery
DX: M65.4 Radial styloid tenosynovitis [de Quervain] (principal)
CPT/HCPCS: 20550; 99203

== ENCOUNTER → 2023-10-16 10:37 | Outpatient (BNVA) | payer OTHER, SELFPAY | PROVIDERS: PCP Internal Medicine; Visit Provider Orthopaedic Surgery | DX: M65.4 Radial styloid tenosynovitis [de Quervain] (principal) | CPT/HCPCS: 99202; J1100 ==

== ENCOUNTER 2023-11-22 09:08 | Outpatient (REF) | payer OTHER, SELFPAY ==
[2023-11-22 09:20] LABS: MANUAL DIFF FLAG NO
[2023-11-22 09:34] LABS: Basophils Percent Auto 0.4 % (0-2); Eosinophils Absolute Auto 0.2 X10*3/uL (0.0-0.4); Eosinophils Percent Auto 2.4 % (0-4); Hematocrit 43.7 % (37.0-47.0); Hemoglobin 14.4 g/dl (12.0-16.0); Imm Gran Abs Auto 0.02 X10*3/uL (0.00-0.03); Imm Gran Pct Auto 0.3 % (0.0-0.4); Lymphocytes Absolute Auto 2.1 X10*3/uL (1.2-4.9); Lymphocytes Percent Auto 29.1 % (20-40); Mean Corpuscular Volume 84.9 fL (80.0-98.0); Monocytes Absolute Auto 0.6 X10*3/uL (0.1-1.2); Monocytes Percent Auto 8.9 % (2-11); Neutrophils Absolute Auto 4.2 x10*3/uL (2.0-8.3); Neutrophils Percent Auto 58.9 % (45-73); Platelet Count 343 X10*3/uL (160-400); Red Blood Count 5.15 X10*6/uL (4.20-5.50); Red Cell Distribution Width 15.9 % (11.0-16.0); White Blood Count 7.2 X10*3/uL (4.8-10.8)
[2023-11-22 10:04] LABS: Alanine Aminotransferase 47 U/L (0-31); Albumin Level 4.5 g/dL (3.5-5.0); Alkaline Phosphatase 163 U/L (39-117); Amylase 280 U/L (28-100); Anion Gap 9 (12-20); Aspartate Amino Transferase 24 U/L (5-31); Bilirubin Total 0.6 mg/dL (0.0-1.0); Blood Urea Nitrogen 15 mg/dL (9-16); Calcium 9.8 mg/dL (8.4-10.2); Carbon Dioxide 29 mmol/L (22-29); Chloride 108 mmol/L (96-108); Cholesterol 182 mg/dL (<200); Estimated Glomerular Filt Rate > 60; Glucose Fasting 92 mg/dL (60-99); HDL Cholesterol 50 mg/dL (>40); LDL Cholesterol Calculated 117 mg/dL (<100); Sodium 142 mmol/L (135-145); Triglycerides 79 mg/dL (<150)
== END 2023-11-22 09:09 | disposition home or self-care (01) ==
LOC: HO.LAB 09:08
PROVIDERS: Visit Provider Internal Medicine
DX: R74.8 Abnormal levels of other serum enzymes (principal); I10 Essential (primary) hypertension; E78.00 Pure hypercholesterolemia, unspecified
CPT/HCPCS: 36415; 80053; 80061; 82150; 85025

== ENCOUNTER 2023-11-27 10:36 | Outpatient (AMB) | payer OTHER, SELFPAY ==
[2023-11-27 10:37] VITALS: BP 124/70; PULSE 65; O2SAT 98; BMI 25.3
--- NOTE | 2023-11-27 10:37 | A.OFFPC_ITS ---
Vital Signs 11/27/23 10:37 Height 5 ft 3 in Weight 143 lb BMI 25.3 BP 124/70 Blood Pressure Location Lt brachial Position Sitting Pulse 65 Pulse Source Pulse Oximeter Pulse Oximetry (%) 98 Oxygen Delivery Method Room Air Intake Visit Reasons: hyperamylasemia, HTN, hyperlipidemia Intake Note: Patient is here to follow up Area Supervisor Required: No Allergies No Known Allergies [No Known Allergies*] Allergy (Verified 11/27/23 11:01) Medication List - Last Reconciled 11/27/23 by Yunier Marinelli MD amlodipine 10 mg PO DAILY atorvastatin 40 mg PO BEDTIME 90 days ergocalciferol (vitamin D2) 1,250 mcg PO QWEEK 90 days [thumb spica wear nightly & as much as possible throughout the day] Tobacco use date assessed: 11/27/23 Fall risk assessment: No Falls in past year Last assessed Fall Risk: 11/27/23 Dental Screening Dental Screen Date: 11/27/23 Did you have a dental visit in the last 12 months?: Yes Did you have a dental problem in the last 6 months where you did not have access to dental care?: No Was dental information given to patient?: Patient has dentist HPI hyperamylasemia, HTN, hyperlipidemia HPI Details Patient comes in today for her follow up visit States that she feels okay She denies any headaches or dizziness Denies any chest pains, no SOB No nausea/vomiting, no abdominal pain No change in bowel habits noted Had her follow up labs done a few days ago - to discuss her results [facility] Medical History Lumbar disc disease Osteopenia ASCUS of cervix with negative high risk HPV Tinea corporis Overweight (BMI 25.0-29.9) Depression Insomnia Asymptomatic microscopic hematuria Pyuria Carpal tunnel syndrome of right wrist Calcaneal spur Irritable bowel syndrome Elevated LFTs Degenerative arthritis of right knee Constipation Vitamin D deficiency Edema of lower extremity due to peripheral venous insufficiency Hyperamylasemia Generalized pruritus Migraine Pure hypercholesterolemia Benign essential hypertension Colon cancer screening Bowel obstruction Elevated cholesterol HTN (hypertension) Surgical History Status post epidural steroid injection (~2005) History of tubal ligation History of laparotomy History of ear surgery H/O colonoscopy (~07/26/10) History of cholecystectomy Family History Father Medical history unknown Mother Hypertension Son No problems noted. Social History Housing: House Alcohol intake: never Patient Tobacco Use Status: Never used Tobacco e-Cigarette/Vaping Use: Never Used Second Hand Smoke Exposure: No service: No Current occupational status: retired Current occupation: right hand dominant Cognitive needs: No Hearing needs: No Vision needs: Yes Female Reproductive History Menstrual Age of Menarche: 11 Questionnaire PHQ-9 Over the last 2 weeks, how often have you been bothered by any of the following problems? 1. Little interest or pleasure in doing things: not at all 2. Feeling down, depressed, or hopeless: not at all 3. Trouble falling or staying asleep, or sleeping too much: not at all 4. Feeling tired or having little energy: not at all 5. Poor appetite or overeating: not at all 6. Feeling bad about yourself - or that you are a failure or have let yourself or your family down: not at all 7. Trouble concentrating on things, such as reading the newspaper or watching television: not at all 8. Moving or speaking so slowly that other people could have noticed. Or the opposite - being so fidgety or restless that you have been moving around a lot more than usual: not at all 9. Thoughts that you would be better off or of hurting yourself in some way: not at all Total score: 0 Depression Screening Interpretation: Negative Depression Screening Done: Yes 99150 - PHQ-9 Billing: Yes Source: Developed by Drs. Trip Patton, Melinda Norris, Demetrio Bella and colleagues, with an educational miah from [employer] & other things you bake. Thrive Questionnaire Date Thrive assessed: 11/27/23 I am a: Patient What is your living situation today?: I have a steady place to live Within the past 12 months, did the food you bought not last and you didn't have the money to get more?: Never true Within the past 12 months, did you worry whether your food would run out before you got money to buy more?: Never true Do you have trouble paying for medicines?: No Do you have trouble getting transportation to medical appointments?: No Do you have trouble paying your heating and electricity bill?: No Do you have trouble taking care of your child, family member or friend?: No Do you have trouble with day-to-day activities such as bathing, preparing meals, shopping, managing finances, etc.?: No Are you currently unemployed and looking for a job?: No Are you interested in more education?: No Please select the resources that you would like help with: None Currently or been in a relationship where the following occur: no concerns reported THRIVE Score: 0 AUDIT C Alcohol Use Questionnaire (AUDIT-C) 1. How often do you have a drink containing alcohol?: Never 3. How often do you have six or more drinks on one occasion?: Never Total Score: 0 Score Reviewed/Action Taken: Yes NATHAN-7 AMB Questionnaire NATHAN-7 Date NATHAN - 7 assessed: 09/11/23 Source: Developed by Drs. Trip Patton, Melinda Norris, Demetrio Bella and colleagues, with an educational miah from [employer] & other things you bake. Review of Systems Const Denies chills, Denies difficulty sleeping, Denies fatigue, Denies fever(s) and Denies headache(s) ENT Denies dysphagia, Denies dizziness, Denies otalgia, Denies headache(s), Denies neck pain, Denies odynophagia and Denies sore throat Card Denies chest pain, Denies palpitations and Denies dyspnea Resp Denies cough and Denies dyspnea GI Denies abdominal pain, Denies dysphagia, Denies heartburn, Denies diarrhea, Denies nausea, Denies odynophagia and Denies vomiting Denies difficulty voiding, Denies nocturia, Denies dysuria and Denies urinary urgency Musc Reports back pain (on and off) and Denies neck pain Skin/Breast Denies rash Neuro Denies dizziness and Denies headache(s) Endo Denies fatigue and Denies palpitations Physical exam (Primary Care) Vital Signs: Last Vital Signs Pulse 65 11/27/23 10:37 BP 124/70 11/27/23 10:37 Pulse Ox 98 11/27/23 10:37 Oxygen Delivery Method Room Air 11/27/23 10:37 BMI result Body Mass Index 25.3 Tobacco/Smoking Status: Tobacco use Status Tobacco use date assessed 11/27/23 11/27/23 10:38 Patient Tobacco Use Status Never used Tobacco 11/27/23 10:38 e-Cigarette/Vaping Use Never Used 11/27/23 10:38 PHQ-9: PHQ-9 Score PHQ-9: Total score 0 11/27/23 11:08 Depression Screening Interpretation: Negative Thrive Assessment: Date of Thrive Assessment Date Thrive assessed 11/27/23 11/27/23 11:08 Currently or been in a relationship where the following occur: no concerns reported Const General: no acute distress and alert HENMT Ears: TM's normal bilaterally and EAC's normal Throat: Yes posterior oropharynx normal and Yes tonsils normal Neck Neck: Yes no lymphadenopathy and Yes supple Thyroid: Thyroid normal Resp Auscultation: clear to auscultation bilaterally, no rales and no wheezes Cardio Rate: regular rate Rhythm: regular rhythm Heart sounds: no murmurs GI Palpation (GI): Soft to palpation and nontender Auscultation: normal bowel sounds General: Yes no CVA tenderness Back/Spine/Pelvis Back: no CVA tenderness Thoracic/Lumbar Spine: lumbar spinal tenderness Skin Rashes: no rashes Extrem General: Yes no clubbing, cyanosis or edema Results Reviewed Results Reviewed: Laboratory Tests 11/22/23 09:19 WBC 7.2 Hgb 14.4 Hct 43.7 Plt Count 343 Sodium 142 Potassium 4.0 Creatinine 0.75 Estimated GFR > 60 Fasting Glucose 92 Calcium 9.8 AST 24 ALT 47 H Alkaline Phosphatase 163 H Triglycerides 79 Cholesterol 182 LDL Cholesterol, Calc 117 H HDL Cholesterol 50 Amylase 280 H Assessment and Plan Assessment & Plan (1) Pure hypercholesterolemia: Code(s): E78.00 - Pure hypercholesterolemia, unspecified Plan: Results of her labs done a few days ago reviewed and discussed with patient - she is advised that her cholesterol numbers have increased from previous Reinforced low cholesterol diet Patient admits that she went on a cruise recently and got her labs done the day after she got back from her vacation Continue Atorvastatin 40 mg QD for now Will recheck her labs and fasting lipids in 4 months for follow up (2) Benign essential hypertension: Code(s): I10 - Essential (primary) hypertension Plan: Reinforced low sodium diet - goal is systolic BP of at least 120 to 130 mm or less Continue Amlodipine 10 mg QD (3) Elevated LFTs: Code(s): R79.89 - Other specified abnormal findings of blood chemistry Plan: Advised that her ALT level has increased on her recent labs; AST remains normal - will continue to monitor her LFTs regularly Abdominal US done back in 2021 came out normal; US done back in November 2012 was also normal, with limited visualization of the tail of the pancreas due to bowel gas. There were also some right renal cysts noted incidentally (4) Migraine: Code(s): G43.909 - Migraine, unspecified, not intractable, without status migrainosus Qualifiers: Migraine type: unspecified Status migrainosus presence: without status migrainosus Intractability: not intractable Qualified Code(s): G43.909 - Migr yari, unspecified, not intractable, without status migrainosus Plan: Stable with no acute flare ups of her migraine headaches lately (5) Hyperamylasemia: Code(s): R74.8 - Abnormal levels of other serum enzymes Plan: Stable - will continue to monitor her serum amylase level regularly Unclear if this has anything to do at all with her small bowel surgery (Meckel's diverticulum resection and lysis of adhesions) back in 1997 (6) Generalized pruritus: Code(s): L29.9 - Pruritus, unspecified Plan: She has been seen and evaluated by jig and fixture repairer previously and was diagnosed with atopic dermatitis Was supposed to be scheduled for allergy testing but this was postponed and has yet to be done - patient prefers to continue holding off on this as she has not had any significant issues with her dermatitis since (7) Vitamin D deficiency: Code(s): E55.9 - Vitamin D deficiency, unspecified Plan: Continue Vitamin D2 23329 units once a week (8) Right hip pain: Code(s): M25.551 - Pain in right hip Plan: Feels that her right hip pain has improved lately with regular exercises and stretching Follow up with rheumatology as scheduled (9) Painful arc syndrome of right shoulder: Code(s): M75.101 - Unspecified rotator cuff tear or rupture of right shoulder, not specified as traumatic Plan: She received cortisone injection into her shoulder from orthopedics last year with little relief MRI of the shoulder done in August 2022 revealed (+) 1 cm bursal-sided partial tear of the supraspinatus tendon with mild to moderate associated tendinosis with NO muscl atrophy. There is also moderate acromioclavicular osteoarthritis, mild subacromial subdeltoid bursitis and minimal glenohumeral osteoarthritis S/P physical therapy with some improvement and she continues to do the shoulder exercises on her own regularly to help manage her shoulder symptoms Follow up with orthopedics as scheduled (10) Degenerative arthritis of right knee: Code(s): M17.11 - Unilateral primary osteoarthritis, right knee Qualifiers: Osteoarthritis type: primary Qualified Code(s): M17.11 - Unilateral primary osteoarthritis, right knee Plan: States that her right knee pain has been mostly manageable lately X-rays done back in March 2017 showed (+) mild arthritis changes that are similar to findings in July 2015 Follow up with orthopedics as scheduled or as needed (11) Lumbar disc disease: Comment: (+) moderate L5-S1 disc dessication with mild end plate irregularities seen on lumbar spine CT done on 11/13/2005 Code(s): M51.9 - Unspecified thoracic, thoracolumbar and lumbosacral intervertebral disc disorder Plan: Repeat lumbar spine x-rays done on 11/30/2022 revealed (+) mild to moderate degenerative changes at L4-L5 and L5-S1 Reinforced activity and weight-lifting restrictions to minimize aggravating her lower back (12) Pain of right thumb: Code(s): M79.644 - Pain in right finger(s) Plan: Most likely has De Quervain's tenosynovitis X-rays of the right hand/thumb showed only mild osteoarthritis of the 1st carpometacarpal joint She was seen by rheumatology and prescribed a thumb pica splint, which she wore for a while with little relief She was seen by orthopedics and received a cortisone injection into the thumb joint last month with some relief Follow up with orthopedics as scheduled (13) Irritable bowel syndrome: Code(s): K58.9 - Irritable bowel syndrome without diarrhea Qualifiers: Irritable bowel syndrome type: unspecified Qualified Code(s): K58.9 - Irritable bowel syndrome without diarrhea Plan: Stable - follow up with GI as scheduled (14) Constipation: Code(s): K59.00 - Constipation, unspecified Qualifiers: Constipation type: unspecified constipation type Qualified Code(s): K59.00 - Constipation, unspecified Plan: Improved - reinforced increased oral fluids and dietary fiber Continue Senna 8.6 mg 1 to 2 tablets QD PRN (15) Osteopenia: Code(s): M85.80 - Other specified disorders of bone density and structure, unspecified site Qualifiers: Osteopenia location: unspecified Qualified Code(s): M85.80 - Other specified disorders of bone density and structure, unspecified site Plan: Repeat BMD done on 08/17/2021 revealed (+) osteopenia, with an 8.0% decline in BMD in the left femur from previous Patient encouraged to continue to exercise regularly and stay active as well as continue with her daily vitamin-D and calcium supplements Will send her for repeat BMD now for follow up (16) Asymptomatic microscopic hematuria: Code(s): R31.21 - Asymptomatic microscopic hematuria Plan: Renal ultrasound done in July 2020 revealed (+) bilateral renal cysts, greater in the right kidney; US was otherwise normal Her recent urinalysis done last week came out normal with NO RBCs in the urine Will continue to monitor this regularly (17) Insomnia: Code(s): G47.00 - Insomnia, unspecified Qualifiers: Insomnia type: unspecified Qualified Code(s): G47.00 - Insomnia, unspecified Plan: Sleep hygiene reinforced Continue Lorazepam 1 mg once a day at bedtime as needed and Trazodone 50 mg daily at bedtime as needed - states that she does not take any of these regularly as she does not want to risk developing dependence on sleep aids over time (18) Depression: Code(s): F32.9 - Major depressive disorder, single episode, unspecified Qualifiers: Depression Type: major depressive disorder Major depression recurrence: recurrent Active/Remission status: currently active Major depression episode severity: unspecified Qualified Code(s): F33.9 - Major depressive disorder, recurrent, unspecified Plan: Patient feels that her depression is still under control and she still does not need any intervention at this time Plan Follow up in 4 months Orders: Orders XR DEXA axial skeleton Today Z78.0 - Asymptomatic menopausal state Complete Blood Count Auto Diff 4 Months D64.9 - Anemia, unspecified, R74.8 - Abnormal levels of other serum enzymes Comprehensive [place]. Panel Fast 4 Months E78.00 - Pure hypercholesterolemia, unspecified, R74.8 - Abnormal levels of other serum enzymes Lipid Panel 4 Months E78.00 - Pure hypercholesterolemia, unspecified, R74.8 - Abnormal levels of other serum enzymes TSH reflex Free T4 4 Months E78.00 - Pure hypercholesterolemia, unspecified, R74.8 - Abnormal levels of other serum enzymes UA CC w/rflx Micro + Cult 4 Months R30.0 - Dysuria, R74.8 - Abnormal levels of other serum enzymes Vitamin D 25-OH Total 4 Months E55.9 - Vitamin D deficiency, unspecified, R74.8 - Abnormal levels of other serum enzymes Magnesium 4 Months E83.42 - Hypomagnesemia, R74.8 - Abnormal levels of other serum enzymes Amylase 4 Months R74.8 - Abnormal levels of other serum enzymes Coding Level of Care Code Est Pt Level 4 (64407) Diagnoses Pure hypercholesterolemia E78.00 Benign essential hypertension I10 Elevated LFTs R79.89 Migraine without status migrainosus, not intractable, unspecified migraine type G43.909 Migraine type: unspecified Status migrainosus presence: without status migrainosus Intractability: not intractable Hyperamylasemia R74.8 Generalized pruritus L29.9 Vitamin D deficiency E55.9 Right hip pain M25.551 Painful arc syndrome of right shoulder M75.101 Primary osteoarthritis of right knee M17.11 Osteoarthritis type: primary Lumbar disc disease M51.9 Pain of right thumb M79.644 Irritable bowel syndrome, unspecified type K58.9 Irritable bowel syndrome type: unspecified Constipation, unspecified constipation type K59.00 Constipation type: unspecified constipation type Osteopenia, unspecified location M85.80 Osteopenia location: unspecified Asymptomatic microscopic hematuria R31.21 Insomnia, unspecified type G47.00 Insomnia type: unspecified Episode of recurrent major depressive disorder, unspecified depression episode severity F33.9 Depression Type: major depressive disorder Major depression recurrence: recurrent Active/Remission status: currently active Major depression episode severity: unspecified
== END 2023-11-27 11:25 | disposition home or self-care (01) ==
PROVIDERS: PCP Internal Medicine; Visit Provider Internal Medicine
DX: E78.00 Pure hypercholesterolemia, unspecified (principal); F33.9 Major depressive disorder, recurrent, unspecified; I10 Essential (primary) hypertension; R79.89 Other specified abnormal findings of blood chemistry; G43.909 Migraine, unspecified, not intractable, without status migrainosus; R74.8 Abnormal levels of other serum enzymes; L29.9 Pruritus, unspecified; E55.9 Vitamin D deficiency, unspecified; M25.551 Pain in right hip; M75.101 Unspecified rotator cuff tear or rupture of right shoulder, not specified as traumatic; M17.11 Unilateral primary osteoarthritis, right knee; M51.9 Unspecified thoracic, thoracolumbar and lumbosacral intervertebral disc disorder
CPT/HCPCS: 99214

== ENCOUNTER 2023-12-14 10:05 | Outpatient (REF) | payer OTHER, SELFPAY ==
--- NOTE | ~2023-12-14 | MM_ITS ---
EXAMINATION: BONE DENSITOMETRY CLINICAL INDICATION: Menopause. COMPARISON: Previous BD dated 08/17/2021 and baseline BD dated 12/01/2016. TECHNIQUE: Using a Atlas Spine DXA System (software version: 13.1) manufactured by [employer], dual-energy x-ray absorptiometry was performed of the lumbar spine and left hip. The images are of good technical quality. Summary results are attached. FINDINGS: LEFT FEMUR, NECK: Current: BMD 0.830 g/cm2, Z-score 0.0, T-score -1.5, osteopenia. Prior: BMD 0.781 g/cm2. Baseline: BMD 0.924 g/cm2. LEFT FEMUR, TOTAL: Current: BMD 0.821 g/cm2, Z-score 0.5, T-score -0.7, normal, 8.1% increase from previous, 0.5% decrease from baseline (<5% change is not significant). Prior: BMD 0.852 g/cm2. Baseline: BMD 0.926 g/cm2. AP SPINE L1-L4: Current: BMD 1.063 g/cm2, Z-score 0.6, T-score -1.0, normal, 8.8% increase from previous, 6.1% increase from baseline (<5% change is not significant). Prior: BMD 0.977 g/cm2. Baseline: BMD 1.002 g/cm2. IDENTIFIED RISK FACTORS: Early menopause, secondary osteoporosis. HISTORY OF FRACTURE: None listed. MEDICATIONS: Vitamin D. MM/XR DEXA axial skeleton IMPRESSION: 1. DIAGNOSIS: Osteopenia based on the lowest T-score value of -1.5 in the femoral neck applying World Health Organization criteria. 2. 10-YEAR FRACTURE RISK PREDICTION, FRAX: Major osteoporotic fracture (clinical spine, forearm, hip or shoulder) 4.9%. Hip fracture 0.5%. 3. Treatment Recommendations: NOF guidelines recommend consideration for treatment in postmenopausal women and men age 50 and older presenting with the following: -A hip or vertebral (clinical or morphometric) fracture. -T-score less than or equal to -2.5 at the femoral neck or spine after appropriate evaluation to exclude secondary causes. -Low bone mass at the hip or spine and a 10-year fracture probability by FRAX of greater than or equal to 3% for hip fracture or greater than or equal to 20% for major osteoporotic fracture based on the [place] adapted WHO algorithm. 4. Other Recommendations: All treatment decisions require clinical judgment and consideration of individual patient factors, including patient preferences, comorbidities, previous drug use, risk factors not captured in the FRAX model (e.g. frailty, falls, vitamin D deficiency, increased bone turnover, interval significant decline in bone density) and possible under or overestimation of fracture risk by FRAX. Additional medical evaluation for secondary cause of low bone mineral density may be appropriate. FUTURE SCAN RECOMMENDATION: People with diagnosed cases of osteoporosis or at high risk for fracture should have regular bone mineral density tests. For patients eligible for Medicare, routine testing is allowed once every 2 years. The testing frequency can be increased to one year for patients who have rapidly progressing disease, those who are receiving or discontinuing medical therapy to restore bone mass, or have additional risk factors.
== END 2023-12-14 10:06 | disposition home or self-care (01) ==
LOC: HO.MAMMO 10:05
PROVIDERS: PCP Internal Medicine; Visit Provider Internal Medicine
DX: Z13.820 Encounter for screening for osteoporosis (principal); Z78.0 Asymptomatic menopausal state
CPT/HCPCS: 77080

== ENCOUNTER 2024-02-18 10:04 | Outpatient (REF) | payer OTHER, SELFPAY ==
--- NOTE | ~2024-02-18 | MM_ITS ---
EXAMINATION: MM SCREENING DIGITAL BREAST TOMOSYNTHESIS, BILATERAL CLINICAL INFORMATION: Screening. Asymptomatic. COMPARISON: Mammography: This study is compared with prior exams dating back to 2020. TECHNIQUE: Digital breast tomosynthesis is performed in both the craniocaudal and mediolateral oblique views along with computer-aided detection (CAD). Synthesized 2D images are generated from the tomosynthesis. FINDINGS: The breasts are heterogeneously dense, which may obscure small masses (ACR BI-RADS breast composition Category c). There are no significant masses, abnormal calcifications, or other abnormalities. MM/MM tomosynthesis screening BI IMPRESSION: No mammographic evidence of malignancy. ASSESSMENT: BI-RADS BI-RADS 1 - Negative RECOMMENDATION: Routine annual mammography screening. 1 year F/U This examination should not preclude the clinical evaluation of a suspicious palpable abnormality. This patient's information was entered into a reminder system with a target due date for their next mammogram.
== END 2024-02-18 10:05 | disposition home or self-care (01) ==
LOC: HO.MAMMO 10:04
PROVIDERS: PCP Internal Medicine; Visit Provider Internal Medicine
DX: Z12.31 Encounter for screening mammogram for malignant neoplasm of breast (principal)
CPT/HCPCS: 77063; 77067

== ENCOUNTER → 2024-02-18 10:30 | Outpatient (BNV) | payer OTHER, SELFPAY | PROVIDERS: PCP Internal Medicine; Visit Provider Radiology Diagnostic Radiology | DX: Z12.31 Encounter for screening mammogram for malignant neoplasm of breast (principal) | CPT/HCPCS: 77063; 77067 ==

== ENCOUNTER 2024-03-25 06:03 | Outpatient (REF) | payer OTHER, SELFPAY ==
[2024-03-25 06:19] LABS: MANUAL DIFF FLAG NO
[2024-03-25 07:13] LABS: Basophils Percent Auto 0.6 % (0-2); Eosinophils Absolute Auto 0.2 X10*3/uL (0.0-0.4); Eosinophils Percent Auto 3.1 % (0-4); Hematocrit 42.3 % (37.0-47.0); Imm Gran Abs Auto 0.01 X10*3/uL (0.00-0.03); Imm Gran Pct Auto 0.2 % (0.0-0.4); Lymphocytes Absolute Auto 2.1 X10*3/uL (1.2-4.9); Lymphocytes Percent Auto 39.4 % (20-40); Mean Corpuscular HGB Conc 33.1 g/dl (31.0-35.0); Mean Corpuscular Hemoglobin 28.6 pg (27.0-33.0); Mean Corpuscular Volume 86.3 fL (80.0-98.0); Mean Platelet Volume 9.7 fL (9.4-12.3); Monocytes Absolute Auto 0.5 X10*3/uL (0.1-1.2); Monocytes Percent Auto 8.9 % (2-11); Neutrophils Absolute Auto 2.6 x10*3/uL (2.0-8.3); Neutrophils Percent Auto 47.8 % (45-73); Platelet Count 318 X10*3/uL (160-400); Red Cell Distribution Width 15.7 % (11.0-16.0); White Blood Count 5.4 X10*3/uL (4.8-10.8)
[2024-03-25 07:15] LABS: Appearance Urine Clear; Color Urine Yellow; Glucose Urine UA Negative (Negative); Leukocyte Esterase Urine Trace (Negative); Nitrite Urine Negative (Negative); Specific Gravity - Urine 1.015 (1.005-1.025); UMIC TRIGGER UACC YES; Urine Blood Negative (Negative); Urine Ketones Negative (Negative); Urine Protein Negative (Neg-Trace)
[2024-03-25 07:21] LABS: Bacteria Urine Trace (None Seen); Hyaline Casts Urine 0-2 /LPF (0-2); RBC Urine 0-2 /HPF (0-2); WBC Urine 0-5 /HPF (0-5)
[2024-03-25 07:54] LABS: Alanine Aminotransferase 16 U/L (0-31); Albumin Level 4.1 g/dL (3.5-5.0); Alkaline Phosphatase 143 U/L (39-117); Anion Gap 12 (12-20); Aspartate Amino Transferase 16 U/L (5-31); Bilirubin Total 0.6 mg/dL (0.0-1.0); Blood Urea Nitrogen 12 mg/dL (9-16); Calcium 9.7 mg/dL (8.4-10.2); Carbon Dioxide 26 mmol/L (22-29); Chloride 108 mmol/L (96-108); Cholesterol 156 mg/dL (<200); Estimated Glomerular Filt Rate > 60; Glucose Fasting 81 mg/dL (60-99); HDL Cholesterol 43 mg/dL (>40); LDL Cholesterol Calculated 101 mg/dL (<100); Magnesium 2.2 mg/dL (1.6-2.6); Potassium 3.9 mmol/L (3.3-5.1); Sodium 142 mmol/L (135-145); Total Protein 7.3 g/dL (6.5-8.0); Triglycerides 64 mg/dL (<150)
[2024-03-25 07:59] LABS: Amylase 182 U/L (28-100)
[2024-03-25 08:14] LABS: TSH reflex Free T4 1.97 uIU/mL (0.32-4.0); Vitamin D 25-OH Total 42.8 ng/mL (>30)
== END 2024-03-25 06:04 | disposition home or self-care (01) ==
LOC: HO.LAB 06:03
PROVIDERS: PCP Internal Medicine; Visit Provider Internal Medicine
DX: R74.8 Abnormal levels of other serum enzymes (principal); E78.00 Pure hypercholesterolemia, unspecified; D64.9 Anemia, unspecified; E83.42 Hypomagnesemia
CPT/HCPCS: 36415; 80053; 80061; 81001; 82150; 82306; 83735; 84443; 85025

== ENCOUNTER 2024-04-08 16:36 | Outpatient (AMB) | payer OTHER, SELFPAY ==
[2024-04-08 16:39] VITALS: BP 104/66; PULSE 70; O2SAT 96; BMI 24.9
--- NOTE | 2024-04-08 16:39 | A.OFFPC_ITS ---
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 Required: No Accompanied by: Self / Same As Patient Allergies No Known Allergies [No Known Allergies*] Allergy (Verified 04/08/24 17:02) Medication List - Last Reconciled 04/08/24 by Yunier Marinelli MD amlodipine 10 mg PO DAILY atorvastatin 40 mg PO BEDTIME 90 days ergocalciferol (vitamin D2) 1,250 mcg PO QWEEK 90 days [thumb spica wear nightly & as much as possible throughout the day] Tobacco use date assessed: 04/08/24 Fall risk assessment: No Falls in past year Last assessed Fall Risk: 04/08/24 Dental Screening Dental Screen Date: 04/08/24 Did you have a dental visit in the last 12 months?: Yes Did you have a dental problem in the last 6 months where you did not have access to dental care?: No Was dental information given to patient?: Patient has dentist HPI hyperamylasemia, hyperlipidemia, HTN HPI Details Patient comes in today for her follow up visit States that she feels okay She denies any headaches or dizziness Denies any chest pains, no SOB No nausea/vomiting, no abdominal pain No change in bowel habits noted She had her follow up labs done a couple of weeks ago - to discuss her results [facility] Medical History Lumbar disc disease Osteopenia ASCUS of cervix with negative high risk HPV Tinea corporis Overweight (BMI 25.0-29.9) Depression Insomnia Asymptomatic microscopic hematuria Pyuria Carpal tunnel syndrome of right wrist Calcaneal spur Irritable bowel syndrome Elevated LFTs Degenerative arthritis of right knee Constipation Vitamin D deficiency Edema of lower extremity due to peripheral venous insufficiency Hyperamylasemia Generalized pruritus Migraine Pure hypercholesterolemia Benign essential hypertension Colon cancer screening Bowel obstruction Elevated cholesterol HTN (hypertension) Surgical History Status post epidural steroid injection (~2005) History of tubal ligation History of laparotomy History of ear surgery H/O colonoscopy (~07/26/10) History of cholecystectomy Family History Father Medical history unknown Mother Hypertension Son No problems noted. Social History Housing: House Alcohol intake: never Patient Tobacco Use Status: Never used Tobacco e-Cigarette/Vaping Use: Never Used Second Hand Smoke Exposure: No service: No Current occupational status: retired Current occupation: right hand dominant Cognitive needs: No Hearing needs: No Vision needs: Yes Female Reproductive History Menstrual Age of Menarche: 11 Questionnaire PHQ-9 Over the last 2 weeks, how often have you been bothered by any of the following problems? 1. Little interest or pleasure in doing things: not at all 2. Feeling down, depressed, or hopeless: not at all 3. Trouble falling or staying asleep, or sleeping too much: not at all 4. Feeling tired or having little energy: not at all 5. Poor appetite or overeating: not at all 6. Feeling bad about yourself - or that you are a failure or have let yourself or your family down: not at all 7. Trouble concentrating on things, such as reading the newspaper or watching television: not at all 8. Moving or speaking so slowly that other people could have noticed. Or the opposite - being so fidgety or restless that you have been moving around a lot more than usual: not at all 9. Thoughts that you would be better off or of hurting yourself in some way: not at all Total score: 0 Depression Screening Interpretation: Negative Depression Screening Done: Yes 76211 - PHQ-9 Billing: Yes Source: Developed by Drs. Trip Patton, Melinda Norris, Demetrio Bella and colleagues, with an educational miah from [employer]. Thrive Questionnaire Date Thrive assessed: 04/08/24 I am a: Patient What is your living situation today?: I have a steady place to live Within the past 12 months, did the food you bought not last and you didn't have the money to get more?: Never true Within the past 12 months, did you worry whether your food would run out before you got money to buy more?: Never true Do you have trouble paying for medicines?: No Do you have trouble getting transportation to medical appointments?: No Do you have trouble paying your heating and electricity bill?: No Do you have trouble taking care of your child, family member or friend?: No Do you have trouble with day-to-day activities such as bathing, preparing meals, shopping, managing finances, etc.?: No Are you currently unemployed and looking for a job?: No Are you interested in more education?: No Please select the resources that you would like help with: None Currently or been in a relationship where the following occur: No concerns reported THRIVE Score: 0 AUDIT C Alcohol Use Questionnaire (AUDIT-C) 1. How often do you have a drink containing alcohol?: Never 3. How often do you have six or more drinks on one occasion?: Never Total Score: 0 Score Reviewed/Action Taken: Yes NATHAN-7 AMB Questionnaire NATHAN-7 Date NATHAN - 7 assessed: 04/08/24 Feeling nervous, anxious, or on edge: 0 = Not at all Not being able to stop or control worryin = Not at all Worrying too much about different things: 0 = Not at all Trouble relaxin = Not at all Being so restless that it is hard to sit still: 0 = Not at all Becoming easily annoyed or irritable: 0 = Not at all Feeling afraid as if something awful might happen: 0 = Not at all Total NATHAN-7 score (0-4 normal; 5-9 mild; 10-14 moderate; 15-21 severe): 0 Source: Developed by Drs. Trip Patton, Melinda Norris, Demetrio Blela and colleagues, with an educational miah from [employer]. Review of Systems Const Denies chills, Denies fatigue, Denies fever(s) and Denies headache(s) ENT Denies dysphagia, Denies dizziness, Denies otalgia, Denies headache(s), Denies neck pain, Denies odynophagia and Denies sore throat Card Denies chest pain, Denies palpitations and Denies dyspnea Resp Denies cough and Denies dyspnea GI Denies abdominal pain, Denies dysphagia, Denies heartburn, Denies diarrhea, Denies nausea, Denies odynophagia and Denies vomiting Denies difficulty voiding, Denies nocturia, Denies dysuria and Denies urinary urgency Musc Reports back pain (on and off) and Denies neck pain Skin/Breast Denies rash Neuro Denies dizziness and Denies headache(s) Endo Denies fatigue and Denies palpitations Physical exam (Primary Care) Vital Signs: Last Vital Signs Pulse 70 04/08/24 16:39 BP 104/66 04/08/24 16:39 Pulse Ox 96 04/08/24 16:39 Oxygen Delivery Method Room Air 04/08/24 16:39 BMI result Body Mass Index 24.9 Tobacco/Smoking Status: Tobacco use Status Tobacco use date assessed 04/08/24 04/08/24 16:40 Patient Tobacco Use Status Never used Tobacco 04/08/24 16:40 e-Cigarette/Vaping Use Never Used 04/08/24 16:40 PHQ-9: PHQ-9 Score PHQ-9: Total score 0 04/08/24 17:06 Depression Screening Interpretation: Negative Thrive Assessment: Date of Thrive Assessment Date Thrive assessed 04/08/24 04/08/24 16:40 Currently or been in a relationship where the following occur: No concerns reported Const General: no acute distress and alert HENMT Ears: TM's normal bilaterally and EAC's normal Throat: Yes posterior oropharynx normal and Yes tonsils normal Neck Neck: Yes no lymphadenopathy and Yes supple Thyroid: Thyroid normal Resp Auscultation: clear to auscultation bilaterally, no rales and no wheezes Cardio Rate: regular rate Rhythm: regular rhythm Heart sounds: no murmurs GI Palpation (GI): Soft to palpation and nontender Auscultation: normal bowel sounds General: Yes no CVA tenderness Back/Spine/Pelvis Back: no CVA tenderness Thoracic/Lumbar Spine: lumbar spinal tenderness Skin Rashes: no rashes Extrem General: Yes no clubbing, cyanosis or edema Results Reviewed Results Reviewed: Laboratory Tests 03/25/24 03/25/24 06:18 06:20 WBC 5.4 Hgb 14.0 Hct 42.3 Plt Count 318 Sodium 142 Potassium 3.9 Creatinine 0.78 Estimated GFR > 60 Fasting Glucose 81 Calcium 9.7 Magnesium 2.2 AST 16 ALT 16 Alkaline Phosphatase 143 H Triglycerides 64 Cholesterol 156 LDL Cholesterol, Calc 101 H HDL Cholesterol 43 Amylase 182 H 25-OH Vitamin D Total 42.8 TSH 1.97 Ur Specific [place] 1.015 Urine Protein Negative Urine Glucose (UA) Negative Urine Blood Negative Urine Nitrite Negative Ur Leukocyte Esterase Trace H Assessment and Plan Assessment & Plan (1) Pure hypercholesterolemia: Code(s): E78.00 - Pure hypercholesterolemia, unspecified Plan: Results of her labs done a couple of weeks ago reviewed and discussed with patient - she is advised that her cholesterol numbers have improved from previous Reinforced low cholesterol diet Per request, will try referring her to neurosurgery spine physician for further advice regarding her diet Continue Atorvastatin 40 mg QD Will recheck her labs and fasting lipids in 4 months for follow up (2) Benign essential hypertension: Code(s): I10 - Essential (primary) hypertension Plan: Reinforced low sodium diet - goal is systolic BP of at least 120 to 130 mm or less Continue Amlodipine 10 mg QD (3) Elevated LFTs: Code(s): R79.89 - Other specified abnormal findings of blood chemistry Plan: Her LFTs are back to normal on her recent labs - will continue to monitor her LFTs regularly Abdominal US done back in 2021 came out normal; US done back in November 2012 was also normal, with limited visualization of the tail of the pancreas due to bowel gas. There were also some right renal cysts noted incidentally (4) Migraine: Code(s): G43.909 - Migraine, unspecified, not intractable, without status migrainosus Qualifiers: Intractability: not intractable Migraine type: unspecified Status migrainosus presence: without status migrainosus Qualified Code(s): G43.909 - Migraine, unspecified, not intractable, without status migrainosus Plan: Stable with no acute flare ups of her migraine headaches lately (5) Hyperamylasemia: Code(s): R74.8 - Abnormal levels of other serum enzymes Plan: Stable - will continue to monitor her serum amylase level regularly Unclear if this has anything to do at all with her small bowel surgery (Meckel's diverticulum resection and lysis of adhesions) back in 1997 (6) Generalized pruritus: Code(s): L29.9 - Pruritus, unspecified Plan: She has been seen and evaluated by sawmill or timber yard worker previously and was diagnosed with atopic dermatitis Was supposed to be scheduled for allergy testing but this was postponed and has yet to be done - patient prefers to continue holding off on this as she has not had any significant issues with her dermatitis since (7) Vitamin D deficiency: Code(s): E55.9 - Vitamin D deficiency, unspecified Plan: Continue Vitamin D2 18997 units once a week (8) Right hip pain: Code(s): M25.551 - Pain in right hip Plan: Feels that her right hip pain has improved lately with regular exercises and st retching Follow up with rheumatology as scheduled (9) Painful arc syndrome of right shoulder: Code(s): M75.101 - Unspecified rotator cuff tear or rupture of right shoulder, not specified as traumatic Plan: She received cortisone injection into her shoulder from orthopedics last year with little relief MRI of the shoulder done in August 2022 revealed (+) 1 cm bursal-sided partial tear of the supraspinatus tendon with mild to moderate associated tendinosis with NO muscle atrophy. There is also moderate acromioclavicular osteoarthritis, mild subacromial subdeltoid bursitis and minimal glenohumeral osteoarthritis S/P physical therapy with some improvement and she continues to do the shoulder exercises on her own regularly to help manage her shoulder symptoms Follow up with orthopedics as scheduled (10) Degenerative arthritis of right knee: Code(s): M17.11 - Unilateral primary osteoarthritis, right knee Qualifiers: Osteoarthritis type: primary Qualified Code(s): M17.11 - Unilateral primary osteoarthritis, right knee Plan: States that her right knee pain has been mostly manageable lately X-rays done back in March 2017 showed (+) mild arthritis changes that are similar to findings in July 2015 Follow up with orthopedics as scheduled or as needed (11) Lumbar disc disease: Comment: (+) moderate L5-S1 disc dessication with mild end plate irregularities seen on lumbar spine CT done on 11/13/2005 Code(s): M51.9 - Unspecified thoracic, thoracolumbar and lumbosacral intervertebral disc disorder Plan: Repeat lumbar spine x-rays done on 11/30/2022 revealed (+) mild to moderate degenerative changes at L4-L5 and L5-S1 Reinforced activity and weight-lifting restrictions to minimize aggravating her lower back (12) Pain of right thumb: Code(s): M79.644 - Pain in right finger(s) Plan: Most likely has De Quervain's tenosynovitis X-rays of the right hand/thumb showed only mild osteoarthritis of the 1st carpometacarpal joint She was seen by rheumatology and prescribed a thumb pica splint, which she wore for a while with little relief She was seen by orthopedics and received a cortisone injection into the thumb joint a few months ago with some relief Follow up with orthopedics as scheduled (13) Irritable bowel syndrome: Code(s): K58.9 - Irritable bowel syndrome without diarrhea Qualifiers: Irritable bowel syndrome type: unspecified Qualified Code(s): K58.9 - Irritable bowel syndrome without diarrhea Plan: Stable - follow up with GI as scheduled (14) Constipation: Code(s): K59.00 - Constipation, unspecified Qualifiers: Constipation type: unspecified constipation type Qualified Code(s): K59.00 - Constipation, unspecified Plan: Improved - reinforced increased oral fluids and dietary fiber Continue Senna 8.6 mg 1 to 2 tablets QD PRN (15) Osteopenia: Code(s): M85.80 - Other specified disorders of bone density and structure, unspecified site Qualifiers: Osteopenia location: unspecified Qualified Code(s): M85.80 - Other specified disorders of bone density and structure, unspecified site Plan: Repeat BMD done on 08/17/2021 revealed (+) osteopenia, with an 8.0% decline in BMD in the left femur from previous Most recent BMD done in November 2023 revealed osteopenia based on the lowest T-score value of -1.5 in the femoral neck Her BMD has improved slightly from her 2021 results, with an 8.1% increase from previous in the left femur and an 8.8% increase from previous in the AP spine Patient encouraged to continue to exercise regularly and stay active as well as continue with her daily vitamin-D and calcium supplements Will continue to monitor her BMD regularly (16) Asymptomatic microscopic hematuria: Code(s): R31.21 - Asymptomatic microscopic hematuria Plan: Renal ultrasound done in July 2020 revealed (+) bilateral renal cysts, greater in the right kidney; US was otherwise normal Her recent urinalysis done a couple of weeks ago came out normal again with NO RBCs in the urine Will continue to monitor this regularly (17) Insomnia: Code(s): G47.00 - Insomnia, unspecified Qualifiers: Insomnia type: unspecified Qualified Code(s): G47.00 - Insomnia, unspecified Plan: Sleep hygiene reinforced Continue Lorazepam 1 mg once a day at bedtime as needed and Trazodone 50 mg daily at bedtime as needed - states that she does not take any of these regularly as she does not want to risk developing dependence on sleep aids over time (18) Depression: Code(s): F32.9 - Major depressive disorder, single episode, unspecified Qualifiers: Active/Remission status: currently active Depression Type: major depressive disorder Major depression episode severity: unspecified Major depression recurrence: recurrent Qualified Code(s): F33.9 - Major depressive disorder, recurrent, unspecified Plan: Patient feels that her depression is still under control and she still does not need any intervention at this time Plan Follow up in 4 months Orders: Orders Complete Blood Count Auto Diff 4 Months D64.9 - Anemia, unspecified Lipid Panel 4 Months E78.00 - Pure hypercholesterolemia, unspecified Comprehensive [place]. Panel Fast 4 Months E78.00 - Pure hypercholesterolemia, u nspecified Amylase 4 Months R74.8 - Abnormal levels of other serum enzymes UA CC w/rflx Micro + Cult 4 Months R30.0 - Dysuria, R31.21 - Asymptomatic microscopic hematuria Referrals Nutrition/Dietitian Referral E78.00 - Pure hypercholesterolemia, unspecified, I10 - Essential (primary) hypertension Coding Level of Care Code Est Pt Level 4 (32037) Complex EM visit Add On G2211 Diagnoses Pure hypercholesterolemia E78.00 Benign essential hypertension I10 Elevated LFTs R79.89 Migraine without status migrainosus, not intractable, unspecified migraine type G43.909 Intractability: not intractable Migraine type: unspecified Status migrainosus presence: without status migrainosus Hyperamylasemia R74.8 Generalized pruritus L29.9 Vitamin D deficiency E55.9 Right hip pain M25.551 Painful arc syndrome of right shoulder M75.101 Primary osteoarthritis of right knee M17.11 Osteoarthritis type: primary Lumbar disc disease M51.9 Pain of right thumb M79.644 Irritable bowel syndrome, unspecified type K58.9 Irritable bowel syndrome type: unspecified Constipation, unspecified constipation type K59.00 Constipation type: unspecified constipation type Osteopenia, unspecified location M85.80 Osteopenia location: unspecified Asymptomatic microscopic hematuria R31.21 Insomnia, unspecified type G47.00 Insomnia type: unspecified Episode of recurrent major depressive disorder, unspecified depression episode severity F33.9 Active/Remission status: currently active Depression Type: major depressive disorder Major depression episode severity: unspecified Major depression recurrence: recurrent
== END 2024-04-08 17:24 | disposition home or self-care (01) ==
PROVIDERS: PCP Internal Medicine; Visit Provider Internal Medicine
DX: E78.00 Pure hypercholesterolemia, unspecified (principal); I10 Essential (primary) hypertension; R79.89 Other specified abnormal findings of blood chemistry; G43.909 Migraine, unspecified, not intractable, without status migrainosus; R74.8 Abnormal levels of other serum enzymes; L29.9 Pruritus, unspecified; E55.9 Vitamin D deficiency, unspecified; M25.551 Pain in right hip; M75.101 Unspecified rotator cuff tear or rupture of right shoulder, not specified as traumatic; M17.11 Unilateral primary osteoarthritis, right knee; M51.9 Unspecified thoracic, thoracolumbar and lumbosacral intervertebral disc disorder; M79.644 Pain in right finger(s); K58.9 Irritable bowel syndrome, unspecified; K59.00 Constipation, unspecified; M85.80 Other specified disorders of bone density and structure, unspecified site; R31.21 Asymptomatic microscopic hematuria; G47.00 Insomnia, unspecified
CPT/HCPCS: 99214; G2211

== ENCOUNTER 2024-08-09 07:03 | Outpatient (REF) | payer OTHER, SELFPAY ==
[2024-08-09 07:15] LABS: MANUAL DIFF FLAG NO
[2024-08-09 08:03] LABS: Basophils Percent Auto 0.5 % (0-2); Eosinophils Absolute Auto 0.2 X10*3/uL (0.0-0.4); Eosinophils Percent Auto 2.5 % (0-4); Hematocrit 43.6 % (37.0-47.0); Hemoglobin 14.4 g/dl (12.0-16.0); Imm Gran Abs Auto 0.02 X10*3/uL (0.00-0.03); Imm Gran Pct Auto 0.3 % (0.0-0.4); Lymphocytes Percent Auto 31.8 % (20-40); Mean Corpuscular Hemoglobin 28.3 pg (27.0-33.0); Mean Corpuscular Volume 85.7 fL (80.0-98.0); Mean Platelet Volume 9.8 fL (9.4-12.3); Monocytes Absolute Auto 0.5 X10*3/uL (0.1-1.2); Monocytes Percent Auto 8.2 % (2-11); Neutrophils Absolute Auto 3.6 x10*3/uL (2.0-8.3); Neutrophils Percent Auto 56.7 % (45-73); Platelet Count 355 X10*3/uL (160-400); Red Blood Count 5.09 X10*6/uL (4.20-5.50); White Blood Count 6.3 X10*3/uL (4.8-10.8)
[2024-08-09 08:26] LABS: Appearance Urine Clear; Color Urine Yellow; Glucose Urine UA Negative (Negative); Leukocyte Esterase Urine Small (1+) (Negative); Nitrite Urine Negative (Negative); PH 6.5 (5.0-9.0); UMIC TRIGGER UACC YES; Urine Blood Negative (Negative); Urine Ketones Negative (Negative); Urine Protein Negative (Neg-Trace)
[2024-08-09 08:42] LABS: Bacteria Urine Trace (None Seen); RBC Urine 0-2 /HPF (0-2); UACC Culture Trigger YES; WBC Urine 0-5 /HPF (0-5)
[2024-08-09 08:51] LABS: Alanine Aminotransferase 37 U/L (0-31); Albumin Level 4.4 g/dL (3.5-5.0); Alkaline Phosphatase 143 U/L (39-117); Amylase 193 U/L (28-100); Anion Gap 11 (12-20); Aspartate Amino Transferase 29 U/L (5-31); Bilirubin Total 0.6 mg/dL (0.0-1.0); Blood Urea Nitrogen 12 mg/dL (9-16); Calcium 9.4 mg/dL (8.4-10.2); Carbon Dioxide 26 mmol/L (22-29); Chloride 108 mmol/L (96-108); Cholesterol 179 mg/dL (<200); Estimated Glomerular Filt Rate > 60; Glucose Fasting 87 mg/dL (60-99); HDL Cholesterol 58 mg/dL (>40); LDL Cholesterol Calculated 111 mg/dL (<100); Potassium 3.8 mmol/L (3.3-5.1); Sodium 141 mmol/L (135-145); Triglycerides 54 mg/dL (<150)
== END 2024-08-09 07:04 | disposition home or self-care (01) ==
LOC: HO.LAB 07:03
PROVIDERS: PCP Internal Medicine; Visit Provider Internal Medicine
DX: D64.9 Anemia, unspecified (principal); E78.00 Pure hypercholesterolemia, unspecified; R74.8 Abnormal levels of other serum enzymes; R31.29 Other microscopic hematuria; R30.0 Dysuria
CPT/HCPCS: 36415; 80053; 80061; 81001; 82150; 85025; 87086

== ENCOUNTER 2024-08-12 10:57 | Outpatient (AMB) | payer OTHER, SELFPAY ==
[2024-08-12 11:06] VITALS: BP 112/72; PULSE 70; O2SAT 98; BMI 25.2
--- NOTE | 2024-08-12 11:06 | MHC.PC.OV ---
Vital Signs 08/12/24 11:06 Height 5 ft 3 in Weight 142 lb 2 oz BMI 25.2 BP 112/72 Blood Pressure Location Lt brachial Position Sitting Pulse 70 Pulse Source Pulse Oximeter Pulse Oximetry (%) 98 Oxygen Delivery Method Room Air Intake Visit Reasons: 4 month f/u Stereotyper Helper Required: No Accompanied by: Self / Same As Patient Allergies No Known Allergies [No Known Allergies*] Allergy (Verified 08/12/24 11:26) Medication List - Last Reconciled 08/12/24 by JOSE Chapa amlodipine 10 mg PO DAILY atorvastatin 40 mg PO BEDTIME 90 days ergocalciferol (vitamin D2) 1,250 mcg PO QWEEK 90 days [thumb spica wear nightly & as much as possible throughout the day] Tobacco use date assessed: 08/12/24 Fall risk assessment: No Falls in past year Last assessed Fall Risk: 08/12/24 Dental Screening Dental Screen Date: 08/12/24 Did you have a dental visit in the last 12 months?: No Did you have a dental problem in the last 6 months where you did not have access to dental care?: No Was dental information given to patient?: Patient has dentist HPI 4 month f/u HPI Details The patient is a 64-year-old female with significant past medical history of hyperamylasemia, benign essential hypertension, hypercholesterolemia, migraine, vitamin-D deficiency and constipation The patient is presenting today for follow up appointment. She had labs done few days ago-here to discuss The patient denies any chest pain, SOB, heart palpitation, dizziness She denies stomach pain, change in bowel habits or urinary symptoms c/o itchy rash/burning sensation under her left breast - symptoms have been occurring on and off for a couple of weeks [facility] Medical History (Updated 08/12/24 @ 20:56 by JOSE Chapa) Lumbar disc disease Osteopenia ASCUS of cervix with negative high risk HPV Tinea corporis Overweight (BMI 25.0-29.9) Depression Insomnia Asymptomatic microscopic hematuria Pyuria Carpal tunnel syndrome of right wrist Calcaneal spur Irritable bowel syndrome Elevated LFTs Degenerative arthritis of right knee Constipation Vitamin D deficiency Edema of lower extremity due to peripheral venous insufficiency Hyperamylasemia Generalized pruritus Migraine Pure hypercholesterolemia Benign essential hypertension Colon cancer screening Bowel obstruction Elevated cholesterol HTN (hypertension) Surgical History Status post epidural steroid injection (~2005) History of tubal ligation History of laparotomy History of ear surgery H/O colonoscopy (~07/26/10) History of cholecystectomy Family History Father Medical history unknown Mother Hypertension Son No problems noted. Social History Housing: House Alcohol intake: never Patient Tobacco Use Status: Never used Tobacco e-Cigarette/Vaping Use: Never Used Second Hand Smoke Exposure: No service: No Current occupational status: retired Current occupation: right hand dominant Cognitive needs: No Hearing needs: No Vision needs: Yes Female Reproductive History Menstrual Age of Menarche: 11 Questionnaire PHQ-9 Over the last 2 weeks, how often have you been bothered by any of the following problems? 1. Little interest or pleasure in doing things: not at all 2. Feeling down, depressed, or hopeless: not at all 3. Trouble falling or staying asleep, or sleeping too much: not at all 4. Feeling tired or having little energy: not at all 5. Poor appetite or overeating: not at all 6. Feeling bad about yourself - or that you are a failure or have let yourself or your family down: not at all 7. Trouble concentrating on things, such as reading the newspaper or watching television: not at all 8. Moving or speaking so slowly that other people could have noticed. Or the opposite - being so fidgety or restless that you have been moving around a lot more than usual: not at all 9. Thoughts that you would be better off or of hurting yourself in some way: not at all Total score: 0 Depression Screening Interpretation: Negative Depression Screening Done: Yes 11664 - PHQ-9 Billing: Yes Source: Developed by Drs. Trip Patton, Melinda Norris, Demetrio Bella and colleagues, with an educational miah from [employer]. Thrive Questionnaire Date Thrive assessed: 08/12/24 I am a: Patient What is your living situation today?: I have a steady place to live Within the past 12 months, did the food you bought not last and you didn't have the money to get more?: Never true Within the past 12 months, did you worry whether your food would run out before you got money to buy more?: Never true Do you have trouble paying for medicines?: No Do you have trouble getting transportation to medical appointments?: No Do you have trouble paying your heating and electricity bill?: No Do you have trouble taking care of your child, family member or friend?: No Do you have trouble with day-to-day activities such as bathing, preparing meals, shopping, managing finances, etc.?: No Are you currently unemployed and looking for a job?: No Are you interested in more education?: No Please select the resources that you would like help with: None Currently or been in a relationship where the following occur: No concerns reported THRIVE Score: 0 AUDIT C Alcohol Use Questionnaire (AUDIT-C) 1. How often do you have a drink containing alcohol?: Never 3. How often do you have six or more drinks on one occasion?: Never Total Score: 0 Score Reviewed/Action Taken: Yes NATHAN-7 AMB Questionnaire NATHAN-7 Date NATHAN - 7 assessed: 08/12/24 Source: Developed by Drs. Trip Patton, Melinda Norris, Demetrio Bella and colleagues, with an educational miah from [employer]. Review of Systems Const Details: Denies chills, Denies fatigue, Denies fever(s), Denies headache(s) and Denies weakness HEENT Denies change in vision, Denies dizziness, Denies headache(s), Denies hearing loss, Denies nasal congestion, Denies sinus pain, Denies sinus pressure and Denies sore throat Card Denies chest pain, Denies lightheadedness, Denies dyspnea and Denies other (palpitations) Resp Denies cough, Denies dyspnea and Denies wheezing GI Denies abdominal pain, Denies melena, Denies hematochezia, Denies change in bowel habits, Denies dyspepsia and Denies nausea Denies hematuria and Denies dysuria Musc Denies abnormal gait, Denies myalgias, Denies arthralgias, Denies numbness and Denies tingling Skin/Breast Denies rash, Denies unusual bruising and Denies wounds, reports itchy/burning sensation under the left breast Neuro Denies abnormal gait, Denies dizziness, Denies headache(s), Denies memory loss, Denies numbness, Denies Sensory deficit (Neuro), Denies tingling and Denies weakness Psych Denies anxiety, Denies depression and Denies memory loss Endo Denies cold intolerance, Denies fatigue, Denies heat intolerance, Denies polydipsia and Denies polyuria Davide/Lymph Denies easy bleeding and Denies easy bruising Aller/Immun Denies wheezing Physical exam (Primary Care) Vital Signs: Last Vital Signs Pulse 70 08/12/24 11:06 BP 112/72 08/12/24 11:06 Pulse Ox 98 08/12/24 11:06 Oxygen Delivery Method Room Air 08/12/24 11:06 BMI result Body Mass Index 25.2 Tobacco/Smoking Status: Tobacco use Status Tobacco use date assessed 08/12/24 08/12/24 11:09 Patient Tobacco Use Status Never used Tobacco 08/12/24 11:09 e-Cigarette/Vaping Use Never Used 08/12/24 11:09 PHQ-9: PHQ-9 Score PHQ-9: Total score 0 08/12/24 20:25 Depression Screening Interpretation: Negative Thrive Assessment: Date of Thrive Assessment Date Thrive assessed 08/12/24 08/12/24 11:09 Currently or been in a relationship where the following occur: No concerns reported Const Other: General: no acute distress, well developed, alert and awake Nutritional Appearance: well nourished Orientation/consciousness: patient oriented x3 HENMT Head: Yes normocephalic and Yes atraumatic Ears: hearing grossly normal bilaterally and TM's normal bilaterally General nose exam: Normal external nose present and Normal nares present Mouth: Normal oral and palatal mucosa present and moist mucous membranes Teeth and gingiva: dentition normal Throat: Yes oropharynx normal Eyes Pupils: Equal, round and reactive pupils present and Pupil accommodation reflex normal EOM: EOMs intact bilaterally Neck Neck: Yes normal visual inspection, Yes no lymphadenopathy and Yes trachea midline Thyroid: Thyroid normal Carotids: no bruits Lymphatic: no lymphadenopathy noted Chest Chest palpation & inspection: normal inspection of the chest Resp Effort & Inspection: normal respiratory effort Auscultation: clear to auscultation bilaterally Cardio Rate: regular rate Rhythm: regular rhythm Heart sounds: S1 normal heart sound present, S2 normal heart sound present, no gallops, no murmurs and no rubs Bruits: no abdominal aortic bruits and no carotid bruits GI Palpation (GI): No Abdominal aortic bruit present, Soft to palpation, nontender, No hepatosplenomegaly present and No Rebound tenderness present Auscultation: normal bowel sounds General: Yes no CVA tenderness Back/Spine/Pelvis Back: no CVA tenderness Cervical Spine: cervical ROM normal and No Cervical spine tenderness Thoracic/Lumbar Spine: lumbar tenderness Skin General: warm and dry. Underneath left breast pink and slightly moist, Normal skin turgor Lesions: no lesions Rashes: no rashes Trauma: no lacerations or abrasions Wounds: no wounds Nails: normal Neuro General: patient oriented x3 Cranial nerves: Yes Equal, round and reactive pupils present Cognition (Neuro): normal cognition Gait exam (Neuro): Normal gait present Extrem General: Yes normal to inspection, No edema and No calf tenderness Psych Appearance: grossly normal Affect: normal affect Attitude: cooperative Thought process: Normal thought process present Results Reviewed Results Reviewed: Laboratory Tests 08/09/24 08/09/24 07:10 07:13 WBC 6.3 RBC 5.09 Hgb 14.4 Hct 43.6 Plt Count 355 Sodium 141 Potassium 3.8 Chloride 108 Carbon Dioxide 26 BUN 12 Creatinine 0.73 Estimated GFR > 60 Fasting Glucose 87 AST 29 ALT 37 H Alkaline Phosphatase 143 H Triglycerides 54 Cholesterol 179 LDL Cholesterol, Calc 111 H HDL Cholesterol 58 Amylase 193 H Urine Color Yellow Urine Appearance Clear Urine pH 6.5 Ur Specific [place] 1.010 Urine Protein Negative Urine Glucose (UA) Negative Urine Ketones Negative Urine Blood Negative Urine Nitrite Negative Ur Leukocyte Esterase Small (1+) H Urine RBC 0-2 Urine WBC 0-5 Ur Squamous Epith Cells 11-20 Coding Level of Care Code Est Pt Level 4 (53316) Diagnoses Pure hypercholesterolemia E78.00 Benign essential hypertension I10 Elevated LFTs R79.89 Irritable bowel syndrome, unspecified type K58.9 Irritable bowel syndrome type: unspecified Migraine without status migrainosus, not intractable, unspecified migraine type G43.909 Intractability: not intractable Migraine type: unspecified Status migrainosus presence: without status migrainosus Hyperamylasemia R74.8 Vitamin D deficiency E55.9 Asymptomatic microscopic hematuria R31.21 Lumbar disc disease M51.9 Primary osteoarthritis of right knee M17.11 Osteoarthritis type: primary Constipation, unspecified constipation type K59.00 Constipation type: unspecified constipation type Tinea corporis B35.4 Insomnia, unspecified type G47.00 Insomnia type: unspecified Episode of recurrent major depressive disorder, unspecified depression episode severity F33.9 Active/Remission status: currently active Depression Type: major depressive disorder Major depression episode severity: unspecified Major depression recurrence: recurrent Additional Codes PHQ-9 - 92090 - PHQ-9 Billing: Yes ([id number]) Time Spent (min) 31 Assessment & Plan Assessment & Plan (1) Pure hypercholesterolemia: Code(s): E78.00 - Pure hypercholesterolemia, unspecified Category: Medical Plan: -discussed with patient that her ALT is slightly elevated and seems to be correlating with her elevated LDL --Reinforced diet low in cholesterol/ activity as tolerated --Continue atorvastatin 40 mg p.o. at bedtime (2) Benign essential hypertension: Code(s): I10 - Essential (primary) hypertension Category: Medical Plan: Blood pressure was within goal in office Reinforced a diet low in sodium Continue amlodipine 10 mg daily (3) Elevated LFTs: Code(s): R79.89 - Other specified abnormal findings of blood chemistry Category: Medical Plan: Abdominal US done back in 2021 came out normal; US done back in November 2012 was also normal, with limited visualization of the tail of the pancreas due to bowel gas. There were also some right renal cysts noted incidentally --discussed with patient that her ALT is slightly elevated and seems to be correlating with her elevated LDL --Reinforced diet low in cholesterol/ activity as tolerated (4) Irritable bowel syndrome: Code(s): K58.9 - Irritable bowel syndrome, unspecified Category: Medical Qualifiers: Irritable bowel syndrome type: unspecified Qualified Code(s): K58.9 - Irritable bowel syndrome without diarrhea Plan: Reports that this has been stable Follow up with GI as scheduled (5) Migraine: Code(s): G43.909 - Migraine, unspecified, not intractable, without status migrainosus Category: Medical Qualifiers: Intractability: not intractable Migraine type: unspecified Status migrainosus presence: without status migrainosus Qualified Code(s): G43.909 - Migraine, unspecified, not intractable, without status migrainosus Plan: Reports that this has been stable -Avoid triggers (6) Hyperamylasemia: Code(s): R74.8 - Abnormal levels of other serum enzymes Category: Medical Plan: Stable - will continue to monitor her serum amylase level regularly Unclear if this has anything to do at all with her small bowel surgery (Meckel's diverticulum resection and lysis of adhesions) back in 1997 (7) Vitamin D deficiency: Code(s): E55.9 - Vitamin D deficiency, unspecified Category: Medical Plan: Continue Ergocalciferol 12 50 mcg p.o. q.week (8) Asymptomatic microscopic hematuria: Code(s): R31.21 - Asymptomatic microscopic hematuria Category: Medical Plan: Urinalysis continues to be without hematuria We will continue to monitor (9) Lumbar disc disease: Comment: (+) moderate L5-S1 disc dessication with mild end plate irregularities seen on lumbar spine CT done on 11/13/2005 Code(s): M51.9 - Unspecified thoracic, thoracolumbar and lumbosacral intervertebral disc disorder Category: Medical Plan: Repeat lumbar spine x-rays done on 11/30/2022 revealed (+) mild to moderate degenerative changes at L4-L5 and L5-S1 Reinforced activity and weight-lifting restrictions to minimize aggravating her lower back (10) Degenerative arthritis of right knee: Code(s): M17.11 - Unilateral primary osteoarthritis, right knee Category: Medical Qualifiers: Osteoarthritis type: primary Qualified Code(s): M17.11 - Unilateral primary osteoarthritis, right knee Plan: States that her right knee pain has been mostly manageable lately X-rays done back in March 2017 showed (+) mild arthritis changes that are similar to findings in July 2015 Follow up with orthopedics as scheduled or as needed (11) Constipation: Code(s): K59.00 - Constipation, unspecified Category: Medical Qualifiers: Constipation type: unspecified constipation type Qualified Code(s): K59.00 - Constipation, unspecified Plan: Reports that she has been moving her bowels without any issues lately Encouraged a diet high in fiber and hydration (12) Tinea corporis: Code(s): B35.4 - Tinea corporis Category: Medical Plan: Patient complains of itchy/burning sensation underneath left breast --areas pink and slightly moist ---ketoconazole 2% topical ordered (13) Insomnia: Code(s): G47.00 - Insomnia, unspecified Category: Medical Qualifiers: Insomnia type: unspecified Qualified Code(s): G47.00 - Insomnia, unspecified Plan: Reinforced sleep hygiene (14) Depression: Code(s): F32.9 - Major depressive disorder, single episode, unspecified Category: Medical Qualifiers: Active/Remission status: currently active Depression Type: major depressive disorder Major depression episode severity: unspecified Major depression recurrence: recurrent Qualified Code(s): F33.9 - Major depressive disorder, recurrent, unspecified Plan: Stable: Reports that her mood has been stable without any treatment Denies SI/HI Plan Follow up in 4 months Orders: Orders Lipid Panel 4 Months E66.3 - Overweight, E78.00 - Pure hypercholesterolemia, unspecified, F33.9 - Major depressive disorder, recurrent, unspecified, G43.909 - Migraine, unspecified, not intractable, without status migrainosus, G47.00 - Insomnia, unspecified, I10 - Essential (primary) hypertension, K58.9 - Irritable bowel syndrome, unspecified, K59.00 - Constipation, unspecified, R79.89 - Other specified abnormal findings of blood chemistry Vitamin D 25-OH Total 4 Months E66.3 - Overweight, E78.00 - Pure hypercholesterolemia, unspecified, F33.9 - Major depressive disorder, recurrent, unspecified, G43.909 - Migraine, unspecified, not intractable, without status migrainosus, G47.00 - Insomnia, unspecified, I10 - Essential (primary) hypertension, K58.9 - Irritable bowel syndrome, unspecified, K59.00 - Constipation, unspecified, R79.89 - Other specified abnormal findings of blood chemistry Complete Blood Count Auto Diff 4 Months E66.3 - Overweight, E78.00 - Pure hypercholesterolemia, unspecified, F33.9 - Major depressive disorder, recurrent, unspecified, G43.909 - Migraine, unspecified, not intractable, without status migrainosus, G47.00 - Insomnia, unspecified, I10 - Essential (primary) hypertension, K58.9 - Irritable bowel syndrome, unspecified, K59.00 - Constipation, unspecified, R79.89 - Other specified abnormal findings of blood chemistry Comprehensive [place]. Panel Fast 4 Months E66.3 - Overweight, E78.00 - Pure hypercholesterolemia, unspecified, F33.9 - Major depressive disorder, recurrent, unspecified, G43.909 - Migraine, unspecified, not intractable, without status migrainosus, G47.00 - Insomnia, unspecified, I10 - Essential (primary) hypertension, K58.9 - Irritable bowel syndrome, unspecified, K59.00 - Constipation, unspecified, R79.89 - Other specified abnormal findings of blood chemistry TSH reflex Free T4 4 Months E66.3 - Overweight, E78.00 - Pure hypercholesterolemia, unspecified, F33.9 - Major depressive disorder, recurrent, unspecified, G43.909 - Migraine, unspecified, not intractable, without status migrainosus, G47.00 - Insomnia, unspecified, I10 - Essential (primary) hypertension, K58.9 - Irritable bowel syndrome, unspecified, K59.00 - Constipation, unspecified, R79.89 - Other specified abnormal findings of blood chemistry UA CC w/rflx Micro + Cult 4 Months E66.3 - Overweight, E78.00 - Pure hypercholesterolemia, unspecified, F33.9 - Major depressive disorder, recurrent, unspecified, G43.909 - Migraine, unspecified, not intractable, without status migrainosus, G47.00 - Insomnia, unspecified, I10 - Essential (primary) hypertension, K58.9 - Irritable bowel syndrome, unspecified, K59.00 - Constipation, unspecified, R79.89 - Other specified abnormal findings of blood chemistry Glucose Fasting 4 Months E66.3 - Overweight, E78.00 - Pure hypercholesterolemia, unspecified, F33.9 - Major depressive disorder, recurrent, unspecified, G43.909 - Migraine, unspecified, not intractable, without status migrainosus, G47.00 - Insomnia, unspecified, I10 - Essential (primary) hypertension, K58.9 - Irritable bowel syndrome, unspecified, K59.00 - Constipation, unspecified, R79.89 - Other specified abnormal findings of blood chemistry Medications: New ketoconazole 2% 1 appl topical BID 30 grams 1RF
== END 2024-08-12 11:47 | disposition home or self-care (01) ==
PROVIDERS: PCP Internal Medicine
DX: E78.00 Pure hypercholesterolemia, unspecified (principal); I10 Essential (primary) hypertension; K58.9 Irritable bowel syndrome, unspecified; F33.9 Major depressive disorder, recurrent, unspecified; G43.909 Migraine, unspecified, not intractable, without status migrainosus; R74.8 Abnormal levels of other serum enzymes; E55.9 Vitamin D deficiency, unspecified; R31.21 Asymptomatic microscopic hematuria; M51.9 Unspecified thoracic, thoracolumbar and lumbosacral intervertebral disc disorder; M17.11 Unilateral primary osteoarthritis, right knee; K59.00 Constipation, unspecified; B35.4 Tinea corporis

== ENCOUNTER → 2024-08-12 10:57 | Outpatient (BNVA) | payer MEDICARE, OTHER, SELFPAY | PROVIDERS: PCP Internal Medicine | DX: I10 Essential (primary) hypertension (principal); E78.00 Pure hypercholesterolemia, unspecified; R79.89 Other specified abnormal findings of blood chemistry; G43.909 Migraine, unspecified, not intractable, without status migrainosus; E55.9 Vitamin D deficiency, unspecified; K59.00 Constipation, unspecified; K58.9 Irritable bowel syndrome, unspecified; R74.8 Abnormal levels of other serum enzymes; R31.21 Asymptomatic microscopic hematuria; M51.9 Unspecified thoracic, thoracolumbar and lumbosacral intervertebral disc disorder; M17.11 Unilateral primary osteoarthritis, right knee; B35.4 Tinea corporis; G47.00 Insomnia, unspecified; F33.9 Major depressive disorder, recurrent, unspecified; E66.3 Overweight; Z68.25 Body mass index [BMI] 25.0-25.9, adult | CPT/HCPCS: 96127; 99212 ==

== ENCOUNTER 2024-10-09 11:10 | Outpatient (REF) | payer MEDICARE, MEDICAID, SELFPAY ==
--- NOTE | ~2024-10-09 | MM_ITS ---
EXAMINATION: MM DIAGNOSTIC DIGITAL BREAST TOMOSYNTHESIS, LEFT Limited left breast ultrasound. CLINICAL INFORMATION: Left breast pain upper outer breast. Remote history of excisional biopsy in the left breast in the 80s. COMPARISON: Mammography: Comparison is made with available prior examinations on PACS. TECHNIQUE: Digital breast tomosynthesis is performed in both the craniocaudal and mediolateral oblique views along with computer-aided detection (CAD). Synthesized 2D images are generated from the tomosynthesis. FINDINGS: The breasts are heterogeneously dense, which may obscure small masses (ACR BI-RADS breast composition Category c). Right ankle marker in the upper outer breast at site of patient's pain without underlying abnormality. There are no significant masses, abnormal calcifications, or other abnormalities. Targeted color Doppler ultrasound scanning from 1-5 o'clock in the area the patient's pain demonstrates normal fibroglandular breast tissue. There is no sonographic abnormality. MM/MM tomosynthesis diagnostic LT IMPRESSION: No mammographic or sonographic abnormality in the left breast to account for the patient's left breast pain. Recommend clinical evaluation and follow-up. ASSESSMENT: BI-RADS BI-RADS 1 - Negative RECOMMENDATION: 1 year F/U Results were provided to the patient at time of visit by the technologist. This patient's information was entered into a reminder system with a target due date for their next mammogram. Electronically signed by: Lynnette Crowley DO 10/09/2024 12:34 PM EDT
--- OUTSIDE RECORDS SUMMARY | 2024-10-09 14:20 | XMS_ITS | Clinical Summary ---
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 Name Role Phone Unavailable Primary Care Provider Unavailabl e Social History Tobacco Use Types Packs/Day Years Used Date Smoking Tobacco: Never Assessed Sex and Gender Information Value Date Recorded Sex Assigned at Not on file Gender Identity Not on file Sexual Orientation Not on file Plan of Treatment Health Maintenance Due Date Last Done Comments Hepatitis C Virus Screening 1959 HIV Screening 1972 DTaP/Tdap/Td Vaccines (1 - Tdap) 1978 Pneumococcal Vaccines 50+ (1 of 1 - PCV) 2009 Zoster (Shingles) Vaccine (1 of 2) 2009 COVID-19 Vaccine ( - 2023-2 5 season) 2024 RSV Vaccine 60 years and old er and Patients (1 - 1-dose 75+ series) 2034 Hepatitis B Vaccines Aged Out No long er eligible based on patient's age to complete this topic Pneumococcal Vaccine: Pediat dae (0-5 Years) and At-Risk Patients (6 to 49 Years) Aged Out No longer eligible b ased on patient's age to complete this topic
== END 2024-10-09 11:11 | disposition home or self-care (01) ==
LOC: HO.MAMMO 11:10
PROVIDERS: PCP Internal Medicine; Visit Provider Internal Medicine
DX: N64.4 Mastodynia (principal)
CPT/HCPCS: 76642; 77061; 77065

== ENCOUNTER → 2024-10-09 12:00 | Outpatient (BNV) | payer MEDICARE, MEDICAID, SELFPAY | PROVIDERS: PCP Internal Medicine; Visit Provider Internal Medicine | DX: N64.4 Mastodynia (principal) | CPT/HCPCS: 76642; 77065; G0279 ==

== ENCOUNTER 2024-12-06 07:51 | Outpatient (REF) | payer MEDICARE, MEDICAID, SELFPAY ==
[2024-12-06 08:04] LABS: MANUAL DIFF FLAG NO
[2024-12-06 09:09] LABS: Basophils Percent Auto 0.5 % (0-2); Eosinophils Absolute Auto 0.1 X10*3/uL (0.0-0.4); Eosinophils Percent Auto 2.1 % (0-4); Hematocrit 43.4 % (37.0-47.0); Hemoglobin 14.5 g/dl (12.0-16.0); Imm Gran Abs Auto 0.02 X10*3/uL (0.00-0.03); Imm Gran Pct Auto 0.3 % (0.0-0.4); Lymphocytes Absolute Auto 1.7 X10*3/uL (1.2-4.9); Lymphocytes Percent Auto 26.8 % (20-40); Mean Corpuscular HGB Conc 33.4 g/dl (31.0-35.0); Mean Corpuscular Hemoglobin 28.7 pg (27.0-33.0); Mean Corpuscular Volume 85.8 fL (80.0-98.0); Mean Platelet Volume 9.5 fL (9.4-12.3); Monocytes Absolute Auto 0.5 X10*3/uL (0.1-1.2); Monocytes Percent Auto 8.1 % (2-11); Neutrophils Absolute Auto 3.9 x10*3/uL (2.0-8.3); Neutrophils Percent Auto 62.2 % (45-73); Platelet Count 337 X10*3/uL (160-400); Red Blood Count 5.06 X10*6/uL (4.20-5.50); Red Cell Distribution Width 15.6 % (11.0-16.0); White Blood Count 6.3 X10*3/uL (4.8-10.8)
[2024-12-06 09:14] LABS: Appearance Urine Clear; Color Urine Yellow; Glucose Urine UA Negative (Negative); Leukocyte Esterase Urine Negative (Negative); Nitrite Urine Negative (Negative); PH 6.5 (5.0-9.0); Specific Gravity - Urine 1.015 (1.005-1.025); Urine Blood Negative (Negative); Urine Ketones Negative (Negative); Urine Protein Negative (Neg-Trace)
[2024-12-06 09:50] LABS: Alanine Aminotransferase 33 U/L (0-31); Albumin Level 4.3 g/dL (3.5-5.0); Alkaline Phosphatase 150 U/L (39-117); Anion Gap 13 (12-20); Aspartate Amino Transferase 27 U/L (5-31); Bilirubin Total 0.7 mg/dL (0.0-1.0); Blood Urea Nitrogen 13 mg/dL (9-16); Calcium 9.2 mg/dL (8.4-10.2); Carbon Dioxide 25 mmol/L (22-29); Chloride 109 mmol/L (96-108); Cholesterol 180 mg/dL (<200); Estimated Glomerular Filt Rate > 60; Glucose Fasting 90 mg/dL (60-99); HDL Cholesterol 53 mg/dL (>40); LDL Cholesterol Calculated 114 mg/dL (<100); Potassium 3.8 mmol/L (3.3-5.1); Sodium 143 mmol/L (135-145); Total Protein 7.6 g/dL (6.5-8.0); Triglycerides 65 mg/dL (<150)
[2024-12-06 10:14] LABS: Vitamin D 25-OH Total 38.6 ng/mL (>30)
== END 2024-12-06 07:52 | disposition home or self-care (01) ==
LOC: HO.LAB 07:51
PROVIDERS: PCP Internal Medicine; Visit Provider Internal Medicine
DX: E66.3 Overweight (principal); G47.00 Insomnia, unspecified; F33.9 Major depressive disorder, recurrent, unspecified; K58.9 Irritable bowel syndrome, unspecified; R79.89 Other specified abnormal findings of blood chemistry; K59.00 Constipation, unspecified; G43.909 Migraine, unspecified, not intractable, without status migrainosus; E78.00 Pure hypercholesterolemia, unspecified; I10 Essential (primary) hypertension
CPT/HCPCS: 36415; 80053; 80061; 81003; 82306; 84443; 85025

== ENCOUNTER 2024-12-10 10:47 | Outpatient (AMB) | payer MEDICARE, MEDICAID, SELFPAY ==
[2024-12-10 11:02] VITALS: BP 122/76; PULSE 89; O2SAT 97; BMI 26.3
--- NOTE | 2024-12-10 11:02 | A.OFFPC_ITS ---
Vital Signs 12/10/24 11:02 Height 5 ft 3 in Weight 148 lb 8 oz BMI 26.3 BP 122/76 Blood Pressure Location Lt brachial Position Sitting Pulse 89 Pulse Source Pulse Oximeter Pulse Oximetry (%) 97 Oxygen Delivery Method Room Air Intake Visit Reasons: HLD Transmission Operator Required: No Accompanied by: Self / Same As Patient Allergies No Known Allergies [No Known Allergies*] Allergy (Verified 12/10/24 11:26) Medication List - Last Reconciled 12/10/24 by Yunier Marinelli MD amlodipine 10 mg PO DAILY atorvastatin 40 mg PO BEDTIME 90 days ergocalciferol (vitamin D2) 1,250 mcg PO QWEEK 90 days ketoconazole 2% 1 appl topical BID [thumb spica wear nightly & as much as possible throughout the day] Tobacco use date assessed: 12/10/24 Fall risk assessment: No Falls in past year Last assessed Fall Risk: 12/10/24 Dental Screening Dental Screen Date: 12/10/24 Did you have a dental visit in the last 12 months?: No Did you have a dental problem in the last 6 months where you did not have access to dental care?: No Was dental information given to patient?: No HPI HLD HPI Details Patient comes in today for her follow up visit of her HTN, hyperlipidemia and hyperamylasemia States that she feels okay except for some runny nose and dry cough for the past few days Would like to know what she can take that will not interact with any of the medications that she is currently on She denies any headaches or dizziness; denies any fever or sore throat Denies any chest pains, no SOB No nausea/vomiting, no abdominal pain No change in bowel habits noted She had her follow up labs done a few days ago - to discuss her results [facility] Medical History (Updated 12/13/24 @ 21:44 by Yunier Marinelli MD) Allergic rhinitis Lumbar disc disease Osteopenia ASCUS of cervix with negative high risk HPV Tinea corporis Overweight (BMI 25.0-29.9) Depression Insomnia Asymptomatic microscopic hematuria Pyuria Carpal tunnel syndrome of right wrist Calcaneal spur Irritable bowel syndrome Elevated LFTs Degenerative arthritis of right knee Constipation Vitamin D deficiency Edema of lower extremity due to peripheral venous insufficiency Hyperamylasemia Generalized pruritus Migraine Pure hypercholesterolemia Benign essential hypertension Colon cancer screening Bowel obstruction Elevated cholesterol HTN (hypertension) Surgical History (Updated 12/10/24 @ 11:36 by Yunier Marinelli MD) Status post epidural steroid injection (~2005) History of tubal ligation History of laparotomy History of ear surgery H/O colonoscopy (~07/26/10) History of cholecystectomy Family History Father Medical history unknown Mother Hypertension Son No problems noted. Social History Housing: House Alcohol intake: never Patient Tobacco Use Status: Never used Tobacco e-Cigarette/Vaping Use: Never Used Second Hand Smoke Exposure: No service: No Current occupational status: retired Current occupation: right hand dominant Cognitive needs: No Hearing needs: No Vision needs: Yes Female Reproductive History Menstrual Age of Menarche: 11 Questionnaire PHQ-9 Over the last 2 weeks, how often have you been bothered by any of the following problems? 1. Little interest or pleasure in doing things: not at all 2. Feeling down, depressed, or hopeless: not at all 3. Trouble falling or staying asleep, or sleeping too much: several days 4. Feeling tired or having little energy: nearly every day 5. Poor appetite or overeating: not at all 6. Feeling bad about yourself - or that you are a failure or have let yourself or your family down: not at all 7. Trouble concentrating on things, such as reading the newspaper or watching television: not at all 8. Moving or speaking so slowly that other people could have noticed. Or the opposite - being so fidgety or restless that you have been moving around a lot more than usual: not at all 9. Thoughts that you would be better off or of hurting yourself in some way: not at all Total score: 4 Depression Screening Interpretation: Positive Depression Screening Follow-up: Follow-up Visit Requested Depression Screening Done: Yes 74502 - PHQ-9 Billing: Yes Source: Developed by Drs. Trip Patton, Melinda Norris, Demetrio Bella and colleagues, with an educational miah from [employer]. Thrive Questionnaire Date Thrive assessed: 12/10/24 I am a: Patient What is your living situation today?: I have a steady place to live Within the past 12 months, did the food you bought not last and you didn't have the money to get more?: Never true Within the past 12 months, did you worry whether your food would run out before you got money to buy more?: Never true Do you have trouble paying for medicines?: No Do you have trouble getting transportation to medical appointments?: No Do you have trouble paying your heating and electricity bill?: Yes Do you have trouble taking care of your child, family member or friend?: No Do you have trouble with day-to-day activities such as bathing, preparing meals, shopping, managing finances, etc.?: No Are you currently unemployed and looking for a job?: No Are you interested in more education?: No Please select the resources that you would like help with: Utilities Currently or been in a relationship where the following occur: No concerns reported THRIVE Score: 1 AUDIT C Alcohol Use Questionnaire (AUDIT-C) 1. How often do you have a drink containing alcohol?: Never 3. How often do you have six or more drinks on one occasion?: Never Total Score: 0 Score Reviewed/Action Taken: Yes NATHAN-7 AMB Questionnaire NATHAN-7 Date NATHAN - 7 assessed: 12/10/24 Feeling nervous, anxious, or on edge: 0 = Not at all Not being able to stop or control worryin = Not at all Worrying too much about different things: 0 = Not at all Trouble relaxin = Not at all Being so restless that it is hard to sit still: 0 = Not at all Becoming easily annoyed or irritable: 0 = Not at all Feeling afraid as if something awful might happen: 0 = Not at all Total NATHAN-7 score (0-4 normal; 5-9 mild; 10-14 moderate; 15-21 severe): 0 Source: Developed by Drs. Trip Patton, Melinda Norris, Demetrio Bella and colleagues, with an educational miah from [employer]. Review of Systems Const Denies chills, Denies fatigue, Denies fever(s) and Denies headache(s) ENT Denies dysphagia, Denies dizziness, Denies otalgia, Denies headache(s), Reports nasal discharge, Denies neck pain, Denies odynophagia and Denies sore throat Card Denies chest pain, Denies palpitations and Denies dyspnea Resp Denies chest congestion, Reports cough (on and off, non-productive) and Denies dyspnea GI Denies abdominal pain, Denies dysphagia, Denies heartburn, Denies diarrhea, Denies nausea, Denies odynophagia and Denies vomiting Denies difficulty voiding, Denies nocturia, Denies dysuria and Denies urinary urgency Musc Reports back pain (on and off) and Denies neck pain Skin/Breast Denies rash Neuro Denies dizziness and Denies headache(s) Endo Denies fatigue and Denies palpitations Aller/Immun Reports seasonal rhinorrhea Physical exam (Primary Care) Vital Signs: Last Vital Signs Pulse 89 12/10/24 11:02 BP 122/76 12/10/24 11:02 Pulse Ox 97 12/10/24 11:02 Oxygen Delivery Method Room Air 12/10/24 11:02 BMI result Body Mass Index 26.3 Tobacco/Smoking Status: Tobacco use Status Tobacco use date assessed 12/10/24 12/10/24 11:07 Patient Tobacco Use Status Never used Tobacco 12/10/24 11:07 e-Cigarette/Vaping Use Never Used 12/10/24 11:07 PHQ-9: PHQ-9 Score PHQ-9: Total score 4 12/10/24 11:32 Depression Screening Interpretation: Positive Depression Screening Follow-up: Follow-up Visit Requested Thrive Assessment: Date of Thrive Assessment Date Thrive assessed 12/10/24 12/10/24 11:07 Currently or been in a relationship where the following occur: No concerns reported Const General: no acute distress and alert HENMT Ears: TM's normal bilaterally and EAC's normal Throat: Yes posterior oropharynx normal and Yes tonsils normal Neck Neck: Yes supple and No lymphadenopathy Thyroid: Thyroid normal Resp Auscultation: clear to auscultation bilaterally, no rales and no wheezes Cardio Rate: regular rate Rhythm: regular rhythm Heart sounds: no murmurs GI Palpation (GI): Soft to palpation and nontender Auscultation: normal bowel sounds General: Yes no CVA tenderness Back/Spine/Pelvis Back: no CVA tenderness Thoracic/Lumbar Spine: lumbar spinal tenderness Skin Rashes: no rashes Extrem General: Yes no clubbing, cyanosis or edema Results Reviewed Results Reviewed: Laboratory Tests 08/09/24 12/06/24 12/06/24 07:13 08:00 08:03 WBC 6.3 Hgb 14.5 Hct 43.4 Plt Count 337 Sodium 143 Potassium 3.8 Creatinine 0.72 Estimated GFR > 60 Fasting Glucose 90 Calcium 9.2 AST 27 ALT 33 H Alkaline Phosphatase 150 H Triglycerides 65 Cholesterol 180 LDL Cholesterol, Calc 114 H HDL Cholesterol 53 Amylase 193 H 25-OH Vitamin D Total 38.6 TSH 0.80 Ur Specific [place] 1.015 Urine Protein Negative Urine Glucose (UA) Negative Urine Blood Negative Urine Nitrite Negative Ur Leukocyte Esterase Negative Coding Level of Care Code Est Pt Level 4 (87891) Diagnoses Pure hypercholesterolemia E78.00 Benign essential hypertension I10 Elevated LFTs R79.89 Migraine without status migrainosus, not intractable, unspecified migraine type G43.909 Migraine type: unspecified Status migrainosus presence: without status migrainosus Intractability: not intractable Hyperamylasemia R74.8 Generalized pruritus L29.9 Vitamin D deficiency E55.9 Right hip impingement syndrome M25.851 Painful arc syndrome of right shoulder M75.101 Primary osteoarthritis of right knee M17.11 Osteoarthritis type: primary Lumbar disc disease M51.9 Irritable bowel syndrome, unspecified type K58.9 Irritable bowel syndrome type: unspecified Constipation, unspecified constipation type K59.00 Constipation type: unspecified constipation type Osteopenia, unspecified location M85.80 Osteopenia location: unspecified Asymptomatic microscopic hematuria R31.21 Seasonal allergic rhinitis due to pollen J30.1 Allergic rhinitis trigger: pollen Allergic rhinitis seasonality: seasonal Insomnia, unspecified type G47.00 Insomnia type: unspecified Episode of recurrent major depressive disorder, unspecified depression episode severity F33.9 Depression Type: major depressive disorder Major depression recurrence: recurrent Active/Remission status: currently active Major depression episode severity: unspecified Overweight (BMI 25.0-29.9) E66.3 Additional Codes PHQ-9 - 26649 - PHQ-9 Billing: Yes ([id number]) Assessment & Plan Assessment & Plan (1) Pure hypercholesterolemia: Code(s): E78.00 - Pure hypercholesterolemia, unspecified Category: Medical Plan: Results of her labs done a few days ago reviewed and discussed with patient Reinforced low cholesterol diet Continue Atorvastatin 40 mg QD Will recheck her labs and fasting lipids in 4 months for follow up (2) Benign essential hypertension: Code(s): I10 - Essential (primary) hypertension Category: Medical Plan: Reinforced low sodium diet - goal is systolic BP of at least 120 to 130 mm or less Continue Amlodipine 10 mg QD (3) Elevated LFTs: Code(s): R79.89 - Other specified abnormal findings of blood chemistry Category: Medical Plan: Her LFTs are back to normal on her recent labs - will continue to monitor her LFTs regularly Abdominal US done back in 2021 came out normal; US done back in November 2012 was also normal, with limited visualization of the tail of the pancreas due to bowel gas. There were also some right renal cysts noted incidentally (4) Migraine: Code(s): G43.909 - Migraine, unspecified, not intractable, without status migrainosus Category: Medical Qualifiers: Migraine type: unspecified Status migrainosus presence: without status migrainosus Intractability: not intractable Qualified Code(s): G43.909 - Migraine, unspecified, not intractable, without status migrainosus Plan: Stable/controlled, with no acute flare ups of her migraine headaches lately (5) Hyperamylasemia: Code(s): R74.8 - Abnormal levels of other serum enzymes Category: Medical Plan: Stable - will continue to monitor her serum amylase level regularly Unclear if this has anything to do at all with her small bowel surgery (Meckel's diverticulum resection and lysis of adhesions) back in 1997 (6) Generalized pruritus: Code(s): L29.9 - Pruritus, unspecified Category: Medical Plan: She has been seen and evaluated by global chief creative officer previously and was diagnosed with atopic dermatitis She was supposed to be scheduled for allergy testing but this was postponed and has yet to be done - patient prefers to continue holding off on this as she has not had any significant issues with her dermatitis since (7) Vitamin D deficiency: Code(s): E55.9 - Vitamin D deficiency, unspecified Category: Medical Plan: Continue Vitamin D2 95453 units once a week (8) Right hip impingement syndrome: Code(s): M25.851 - Other specified joint disorders, right hip Category: Medical Plan: Patient feels that her right hip pain has improved lately with regular exercises and stretching Follow up with rheumatology as scheduled (9) Painful arc syndrome of right shoulder: Code(s): M75.101 - Unspecified rotator cuff tear or rupture of right shoulder, not specified as traumatic Category: Medical Plan: She received a cortisone injection into her shoulder from orthopedics a couple of years ago with little relief MRI of the shoulder done in August 2022 revealed (+) 1 cm bursal-sided partial tear of the supraspinatus tendon with mild to moderate associated tendinosis wi th NO muscle atrophy. There is also moderate acromioclavicular osteoarthritis, mild subacromial subdeltoid bursitis and minimal glenohumeral osteoarthritis S/P physical therapy with some improvement and patient continues to do the shoulder exercises on her own regularly to help manage her shoulder symptoms Follow up with orthopedics as scheduled or as needed (10) Degenerative arthritis of right knee: Code(s): M17.11 - Unilateral primary osteoarthritis, right knee Category: Medical Qualifiers: Osteoarthritis type: primary Qualified Code(s): M17.11 - Unilateral primary osteoarthritis, right knee Plan: Patient states that her right knee pain has been mostly manageable for a while now X-rays done back in March 2017 showed (+) mild arthritis changes that are similar to findings in July 2015 Follow up with orthopedics as scheduled or as needed (11) Lumbar disc disease: Comment: (+) moderate L5-S1 disc dessication with mild end plate irregularities seen on lumbar spine CT done on 11/13/2005 Code(s): M51.9 - Unspecified thoracic, thoracolumbar and lumbosacral intervertebral disc disorder Category: Medical Plan: Repeat lumbar spine x-rays done on 11/30/2022 revealed (+) mild to moderate degenerative changes at L4-L5 and L5-S1 Reinforced activity and weight-lifting restrictions to minimize aggravating her lower back (12) Irritable bowel syndrome: Code(s): K58.9 - Irritable bowel syndrome, unspecified Category: Medical Qualifiers: Irritable bowel syndrome type: unspecified Qualified Code(s): K58.9 - Irritable bowel syndrome without diarrhea Plan: Stable - follow up with GI as scheduled (13) Constipation: Code(s): K59.00 - Constipation, unspecified Category: Medical Qualifiers: Constipation type: unspecified constipation type Qualified Code(s): K59.00 - Constipation, unspecified Plan: Improved - reinforced again increased oral fluids and dietary fiber Continue Senna 8.6 mg 1 to 2 tablets QD PRN (14) Osteopenia: Code(s): M85.80 - Other specified disorders of bone density and structure, unspecified site Category: Medical Qualifiers: Osteopenia location: unspecified Qualified Code(s): M85.80 - Other specified disorders of bone density and structure, unspecified site Plan: Repeat BMD done on 08/17/2021 revealed (+) osteopenia, with an 8.0% decline in BMD in the left femur from previous Her most recent BMD done in November 2023 revealed osteopenia based on the lowest T- score value of -1.5 in the femoral neck Her BMD has improved slightly from her 2021 results, with an 8.1% increase from previous in the left femur and an 8.8% increase from previous in the AP spine Patient is encouraged to continue to exercise regularly and stay active as well as continue with her daily vitamin-D and calcium supplements Will continue to monitor her BMD regularly (15) Asymptomatic microscopic hematuria: Code(s): R31.21 - Asymptomatic microscopic hematuria Category: Medical Plan: Renal ultrasound done in July 2020 revealed (+) bilateral renal cysts, greater in the right kidney; US was otherwise normal Her recent urinalysis done a couple of weeks ago came out normal again with NO RBCs in the urine Will continue to monitor this regularly (16) Allergic rhinitis: Code(s): J30.9 - Allergic rhinitis, unspecified Category: Medical Qualifiers: Allergic rhinitis trigger: pollen Allergic rhinitis seasonality: seasonal Qualified Code(s): J30.1 - Allergic rhinitis due to pollen Plan: Will start patient on Cetirizine 10 mg QD PRN (17) Insomnia: Code(s): G47.00 - Insomnia, unspecified Category: Medical Qualifiers: Insomnia type: unspecified Qualified Code(s): G47.00 - Insomnia, unspecified Plan: Sleep hygiene reinforced Continue Lorazepam 1 mg once a day at bedtime as needed and Trazodone 50 mg daily at bedtime as needed - states that she does not take any of these regularly as she does not want to risk developing dependence on sleep aids over time (18) Depression: Code(s): F32.9 - Major depressive disorder, single episode, unspecified Category: Medical Qualifiers: Depression Type: major depressive disorder Major depression recurrence: recurrent Active/Remission status: currently active Major depression episode severity: unspecified Qualified Code(s): F33.9 - Major depressive disorder, recurrent, unspecified Plan: Patient feels that her depression remains under control and she still does not need any intervention at this time (19) Overweight (BMI 25.0-29.9): Code(s): E66.3 - Overweight Category: Medical Plan: Reinforced diet/exercise as tolerated/lose weight Plan Follow up in 4 months Orders: Orders Comprehensive [place]. Panel Fast 4 Months E78.00 - Pure hypercholesterolemia, unspecified Lipid Panel 4 Months E78.00 - Pure hypercholesterolemia, unspecified TSH reflex Free T4 4 Months E78.00 - Pure hypercholesterolemia, unspecified Complete Blood Count Auto Diff 4 Months D64.9 - Anemia, unspecified Amylase 4 Months R74.8 - Abnormal levels of other serum enzymes Lipase 4 Months R74.8 - Abnormal levels of other serum enzymes UA CC w/rflx Micro + Cult 4 Months R30.0 - Dysuria Vitamin D 25-OH Total 4 Months E55.9 - Vitamin D deficiency, unspecified Medications: New cetirizine 10 mg PO DAILY 90 days PRN 90 tabs 1RF allergy symptoms
--- OUTSIDE RECORDS SUMMARY | 2024-12-10 11:54 | XMS_ITS | Clinical Summary ---
Author Organization [facility] Address [address] [place] [address] Care Team Providers Care Operations Advisor Name Role Phone Unavailable Primary Care Provider Unavailabl e Social History Tobacco Use Types Packs/Day Years Used Date Smoking Tobacco: Never Assessed Comments Unknown Sex and Gender Information Value Date Recorded Sex Assigned at Not on file Legal Sex Female 12:16 PM EDT Gender Identity Not on file Sexual Orientation [...]
== END 2024-12-10 11:39 | disposition home or self-care (01) ==
LOC: HO.HMCH 10:48
PROVIDERS: PCP Internal Medicine; Visit Provider Internal Medicine
DX: E78.00 Pure hypercholesterolemia, unspecified (principal); I10 Essential (primary) hypertension; R79.89 Other specified abnormal findings of blood chemistry; G43.909 Migraine, unspecified, not intractable, without status migrainosus; R74.8 Abnormal levels of other serum enzymes; L29.9 Pruritus, unspecified; E55.9 Vitamin D deficiency, unspecified; M25.851 Other specified joint disorders, right hip; M75.101 Unspecified rotator cuff tear or rupture of right shoulder, not specified as traumatic; M17.11 Unilateral primary osteoarthritis, right knee; M51.9 Unspecified thoracic, thoracolumbar and lumbosacral intervertebral disc disorder; K58.9 Irritable bowel syndrome, unspecified; K59.00 Constipation, unspecified; M85.80 Other specified disorders of bone density and structure, unspecified site; R31.21 Asymptomatic microscopic hematuria; J30.1 Allergic rhinitis due to pollen; G47.00 Insomnia, unspecified; F33.9 Major depressive disorder, recurrent, unspecified; E66.3 Overweight

== ENCOUNTER → 2024-12-10 10:47 | Outpatient (BNVA) | payer MEDICARE, MEDICAID, SELFPAY | PROVIDERS: PCP Internal Medicine; Visit Provider Internal Medicine | DX: E78.00 Pure hypercholesterolemia, unspecified (principal); R79.89 Other specified abnormal findings of blood chemistry; I10 Essential (primary) hypertension; G43.909 Migraine, unspecified, not intractable, without status migrainosus; R74.8 Abnormal levels of other serum enzymes; L29.9 Pruritus, unspecified; E55.9 Vitamin D deficiency, unspecified; M25.851 Other specified joint disorders, right hip; M75.101 Unspecified rotator cuff tear or rupture of right shoulder, not specified as traumatic; M17.11 Unilateral primary osteoarthritis, right knee; M51.9 Unspecified thoracic, thoracolumbar and lumbosacral intervertebral disc disorder; K58.9 Irritable bowel syndrome, unspecified; K59.00 Constipation, unspecified; M85.80 Other specified disorders of bone density and structure, unspecified site; R31.21 Asymptomatic microscopic hematuria; J30.1 Allergic rhinitis due to pollen; G47.00 Insomnia, unspecified; F33.9 Major depressive disorder, recurrent, unspecified; E66.3 Overweight; Z68.26 Body mass index [BMI] 26.0-26.9, adult; Z71.3 Dietary counseling and surveillance | CPT/HCPCS: 96127; 99212 ==

== ENCOUNTER 2025-02-24 10:00 | Outpatient (REF) | payer MEDICARE, MEDICAID, SELFPAY ==
--- OUTSIDE RECORDS SUMMARY | 2025-02-24 10:43 | XMS_ITS | Clinical Summary ---
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
--- OUTSIDE RECORDS SUMMARY | 2025-02-24 10:44 | XMS_ITS | Patient Health Record ---
Author Organization [facility] Address [address] [place] [address] Care Team Providers Care Manager Massage Department Name Role Phone Yunier Marinelli MD Primary Care Provider Trip Pate Unavailable [phone] Reason For Referral No Information Medications Medication SIG (Take, Route, Fr equency, Duration) Notes Start Date End Date Status Lorazepam Active Blood Pressure Activ e amLODIPine Besylate Active Plan Of Treatment No Information Insurance Providers Payer Name Payer Address Payer Phone Subscriber Number Group Number Insured Name Patient Relationship to Insured Coverage Start Date Coverage End Date [facility] [address] [place] [phone] [id number] ALEJA VALENZUELA Self - patient is the insured Medical (General) History Medical History History ICD Code 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 Loja Surgical History Surgery Date(Month/Year) cholecystectomy in the surgery for a small bowel ob struction and Meckel's diverticulum in 1997 breast biopsy-benign hearing loss surgery
== END 2025-02-24 10:01 | disposition home or self-care (01) ==
LOC: HO.MAMMO 10:00
PROVIDERS: PCP Internal Medicine; Visit Provider Internal Medicine
DX: Z12.31 Encounter for screening mammogram for malignant neoplasm of breast (principal)
CPT/HCPCS: 77063; 77067

== ENCOUNTER → 2025-02-24 10:30 | Outpatient (BNV) | payer MEDICARE, MEDICAID, SELFPAY | PROVIDERS: PCP Internal Medicine; Visit Provider Internal Medicine | DX: Z12.31 Encounter for screening mammogram for malignant neoplasm of breast (principal) | CPT/HCPCS: 77063; 77067 ==

== ENCOUNTER 2025-04-14 05:59 | Outpatient (REF) | payer MEDICARE, MEDICAID, SELFPAY ==
--- OUTSIDE RECORDS SUMMARY | 2025-04-14 06:02 | XMS_ITS | Patient Health Record ---
Author Organization [facility] Address [address] [place] [address] Care Team Providers Care College Basketball Coach Name Role Phone Yunier Marinelli MD Primary Care Provider Trip Pate Unavailable [phone] Reason For Referral No Information Medications Medication SIG (Take, Route, Fr equency, Duration) Notes Start Date End Date Status Lorazepam Active Blood Pressure Activ e amLODIPine Besylate Active Plan Of Treatment No Information Insurance Providers Payer Name Payer Address Payer Phone Subscriber Number Group Number Insured Name Patient Relationship to Insured Coverage Start Date Coverage End Date [facility] [address] [place] [phone] [id number] ALEJA VALENZUELA Self - patient is the insured Medical (General) History Medical History History ICD Code Hyperamylasemia--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 Loja Surgical History Surgery Date(Month/Year) cholecystectomy in the surgery for a small bowel ob struction and Meckel's diverticulum in 1997 breast biopsy-benign hearing loss surgery
--- OUTSIDE RECORDS SUMMARY | 2025-04-14 06:02 | XMS_ITS | Clinical Summary ---
Author Organization [facility] Address [address] [place] [address] Care Team Providers Care Microsoft Crm Developer Name Role Phone Unavailable Primary Care Provider Unavailabl e Social History Tobacco Use Types Packs/Day Years Used Date Smoking Tobacco: Never Assessed Comments Unknown Sex and Gender Information Value Date Recorded Sex Assigned at Not on file Legal Sex Female 12:16 PM EDT Gender Identity Not on file Sexual Orientation Not on file Plan of Treatment Health Maintenance Due Date Last Done Comments Advance Care Planning 1960 Hepatitis C Virus Screening 1959 HIV Screening 1972 DTaP/Tdap/Td Vaccines (1 - Tdap) 1978 Pneumococcal Vaccines 50+ (1 of 1 - PCV) 2009 Zoster (Shingles) Vaccine (1 of 2) 2009 COVID-19 Vaccine ( - 2023-2 5 season) 2025 RSV Vaccine 60 years and old er and Patients (1 - 1-dose 75+ series) 2034 Hepatitis B Vaccines Aged Out No long er eligible based on patient's age to complete this topic
[2025-04-14 06:14] LABS: MANUAL DIFF FLAG NO
[2025-04-14 08:07] LABS: Hematocrit 42.8 % (37.0-47.0); Hemoglobin 14.1 g/dl (12.0-16.0); Imm Gran Abs Auto 0.01 X10*3/uL (0.00-0.03); Imm Gran Pct Auto 0.2 % (0.0-0.4); Lymphocytes Absolute Auto 1.8 X10*3/uL (1.2-4.9); Mean Corpuscular HGB Conc 32.9 g/dl (31.0-35.0); Mean Corpuscular Hemoglobin 28.1 pg (27.0-33.0); Mean Corpuscular Volume 85.4 fL (80.0-98.0); NRBC Abs Auto 0.000 X10*3/uL (0.0-0.012); NRBC Pct Auto 0.0 /100WBC (0.0-0.2); Platelet Count 328 X10*3/uL (160-400); Red Blood Count 5.01 X10*6/uL (4.20-5.50); White Blood Count 5.6 X10*3/uL (4.8-10.8)
[2025-04-14 08:24] LABS: Appearance Urine Clear; Glucose Urine UA Negative (Negative); PH 7.0 (5.0-9.0); Specific Gravity - Urine 1.015 (1.005-1.025); UMIC TRIGGER UACC YES
[2025-04-14 08:38] LABS: Alanine Aminotransferase 47 U/L (0-31); Albumin Level 4.3 g/dL (3.5-5.0); Alkaline Phosphatase 146 U/L (39-117); Anion Gap 11 (12-20); Aspartate Amino Transferase 29 U/L (5-31); Blood Urea Nitrogen 10 mg/dL (9-16); Calcium 9.1 mg/dL (8.4-10.2); Carbon Dioxide 27 mmol/L (22-29); Chloride 109 mmol/L (96-108); Cholesterol 251 mg/dL (<200); Estimated Glomerular Filt Rate > 60; HDL Cholesterol 46 mg/dL (>40); Lipase 54 U/L (8-78); Potassium 4.2 mmol/L (3.3-5.1); Sodium 143 mmol/L (135-145); Total Protein 7.3 g/dL (6.5-8.0); Triglycerides 77 mg/dL (<150)
[2025-04-14 08:41] LABS: UACC Culture Trigger YES
[2025-04-14 09:38] LABS: Amylase 178 U/L (28-100)
== END 2025-04-14 06:00 | disposition home or self-care (01) ==
LOC: HO.LAB 05:59
PROVIDERS: PCP Internal Medicine; Visit Provider Internal Medicine
DX: R74.8 Abnormal levels of other serum enzymes (principal); R31.29 Other microscopic hematuria; R30.0 Dysuria; E78.00 Pure hypercholesterolemia, unspecified; D64.9 Anemia, unspecified; E55.9 Vitamin D deficiency, unspecified
CPT/HCPCS: 36415; 80053; 80061; 81001; 82150; 82306; 83690; 84443; 85025; 87086

== ENCOUNTER 2025-04-21 10:47 | Outpatient (AMB) | payer MEDICARE, MEDICAID, SELFPAY ==
[2025-04-21 10:58] VITALS: BP 118/74; PULSE 59; O2SAT 97; BMI 25.0
--- NOTE | 2025-04-21 10:58 | MHC.PC.OV ---
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 Required: No Accompanied by: Self / Same As Patient Allergies No Known Allergies (No Known Allergies*) Allergy (Verified 04/21/25 11:39) Medication List - Last Reconciled 04/21/25 by Yunier Marinelli MD amlodipine 10 mg PO DAILY atorvastatin 40 mg PO BEDTIME 90 days cetirizine 10 mg PO DAILY PRN 90 days ergocalciferol (vitamin D2) 1,250 mcg PO QWEEK 90 days ketoconazole 2% 1 appl topical BID [thumb spica wear nightly & as much as possible throughout the day] Tobacco use date assessed: 04/21/25 Fall risk assessment: No Falls in past year Last assessed Fall Risk: 04/21/25 Dental Screening Dental Screen Date: 04/21/25 Did you have a dental visit in the last 12 months?: Yes Did you have a dental problem in the last 6 months where you did not have access to dental care?: No Was dental information given to patient?: Patient has dentist HPI HTN, hyperlipidemia, hyperamylasemia HPI Details Patient comes in today for her follow up visit of her HTN, hyperlipidemia and hyperamylasemia States that she feels okay She denies any headaches or dizziness Denies any chest pains, no SOB No nausea/vomiting, no abdominal pain No change in bowel habits noted Needs her Amlodipine Rx refilled She had her follow up labs done last week - to discuss her results [facility] Medical History Allergic rhinitis Lumbar disc disease Osteopenia ASCUS of cervix with negative high risk HPV Tinea corporis Overweight (BMI 25.0-29.9) Depression Insomnia Asymptomatic microscopic hematuria Pyuria Carpal tunnel syndrome of right wrist Calcaneal spur Irritable bowel syndrome Elevated LFTs Degenerative arthritis of right knee Constipation Vitamin D deficiency Edema of lower extremity due to peripheral venous insufficiency Hyperamylasemia Generalized pruritus Migraine Pure hypercholesterolemia Benign essential hypertension Colon cancer screening Bowel obstruction Elevated cholesterol HTN (hypertension) Surgical History Status post epidural steroid injection (~2005) History of tubal ligation History of laparotomy History of ear surgery H/O colonoscopy (~07/26/10) History of cholecystectomy Family History Father Medical history unknown Mother Hypertension Son No problems noted. Social History Housing: House Alcohol intake: never Patient Tobacco Use Status: Never used Tobacco e-Cigarette/Vaping Use: Never Used Second Hand Smoke Exposure: No service: No Current occupational status: retired Current occupation: right hand dominant Cognitive needs: No Hearing needs: No Vision needs: Yes Female Reproductive History Menstrual Age of Menarche: 11 Questionnaire PHQ-9 Over the last 2 weeks, how often have you been bothered by any of the following problems? Depression Screening Interpretation: Positive Depression Screening Follow-up: Follow-up Visit Requested Depression Screening Done: Yes Source: Developed by Drs. Trip Patton, Melinda Norris, Demetrio Bella and colleagues, with an educational miah from [employer]. Thrive Questionnaire Date Thrive assessed: 12/10/24 I am a: Patient What is your living situation today?: I have a steady place to live Within the past 12 months, did the food you bought not last and you didn't have the money to get more?: Never true Within the past 12 months, did you worry whether your food would run out before you got money to buy more?: Never true Do you have trouble paying for medicines?: No Do you have trouble getting transportation to medical appointments?: No Do you have trouble paying your heating and electricity bill?: Yes Do you have trouble taking care of your child, family member or friend?: No Do you have trouble with day-to-day activities such as bathing, preparing meals, shopping, managing finances, etc.?: No Are you currently unemployed and looking for a job?: No Are you interested in more education?: No Please select the resources that you would like help with: Utilities Currently or been in a relationship where the following occur: No concerns reported THRIVE Score: 1 AUDIT C Alcohol Use Questionnaire (AUDIT-C) 1. How often do you have a drink containing alcohol?: Never 3. How often do you have six or more drinks on one occasion?: Never Total Score: 0 Score Reviewed/Action Taken: Yes NATHAN-7 AMB Questionnaire NATHAN-7 Date NATHAN - 7 assessed: 12/10/24 Source: Developed by Drs. Trip Patton, Melinda Norris, Demetrio Bella and colleagues, with an educational miah from [employer]. Review of Systems Const Denies chills, Denies fatigue, Denies fever(s) and Denies headache(s) ENT Denies dysphagia, Denies dizziness, Denies otalgia, Denies headache(s), Denies neck pain, Denies odynophagia and Denies sore throat Card Denies chest pain, Denies palpitations and Denies dyspnea Resp Denies chest congestion, Denies cough and Denies dyspnea GI Denies abdominal pain, Denies dysphagia, Denies heartburn, Denies diarrhea, Denies nausea, Denies odynophagia and Denies vomiting Denies difficulty voiding, Denies nocturia, Denies dysuria and Denies urinary urgency Musc Reports back pain (on and off) and Denies neck pain Skin/Breast Denies rash Neuro Denies dizziness and Denies headache(s) Endo Denies fatigue and Denies palpitations Physical exam (Primary Care) Vital Signs: Last Vital Signs Pulse 59 04/21/25 10:58 BP 118/74 04/21/25 10:58 Pulse Ox 97 04/21/25 10:58 Oxygen Delivery Method Room Air 04/21/25 10:58 BMI result Body Mass Index 25.0 Tobacco/Smoking Status: Tobacco use Status Tobacco use date assessed 04/21/25 04/21/25 11:03 Patient Tobacco Use Status Never used Tobacco 04/21/25 11:03 e-Cigarette/Vaping Use Never Used 04/21/25 11:03 Depression Screening Interpretation: Positive Depression Screening Follow-up: Follow-up Visit Requested Thrive Assessment: Date of Thrive Assessment Date Thrive assessed 12/10/24 04/21/25 11:03 Currently or been in a relationship where the following occur: No concerns reported Const General: no acute distress and alert HENMT Ears: TM's normal bilaterally and EAC's normal Throat: Yes posterior oropharynx normal and Yes tonsils normal Neck Neck: Yes supple and No lymphadenopathy Thyroid: Thyroid normal Resp Auscultation: clear to auscultation bilaterally, no rales and no wheezes Cardio Rate: regular rate Rhythm: regular rhythm Heart sounds: no murmurs GI Palpation (GI): Soft to palpation and nontender Auscultation: normal bowel sounds General: Yes no CVA tenderness Back/Spine/Pelvis Back: no CVA tenderness Thoracic/Lumbar Spine: lumbar spinal tenderness (mild) Skin Rashes: no rashes Extrem General: Yes no clubbing, cyanosis or edema Results Reviewed Results Reviewed: Laboratory Tests 04/14/25 04/14/25 06:08 06:13 WBC 5.6 Hgb 14.1 Hct 42.8 Plt Count 328 Sodium 143 Potassium 4.2 Creatinine 0.80 Estimated GFR > 60 Fasting Glucose 81 Calcium 9.1 AST 29 ALT 47 H Alkaline Phosphatase 146 H Triglycerides 77 Cholesterol 251 H LDL Cholesterol, Calc 190 H HDL Cholesterol 46 Amylase 178 H Lipase 54 25-OH Vitamin D Total 27.1 L TSH 1.37 Ur Specific [place] 1.015 Urine Protein Negative Urine Glucose (UA) Negative Urine Blood Negative Urine Nitrite Negative Ur Leukocyte Esterase Small (1+) H Coding Level of Care Code Est Pt Level 4 (25566) Diagnoses Pure hypercholesterolemia E78.00 Benign essential hypertension I10 Elevated LFTs R79.89 Hyperamylasemia R74.8 Migraine without status migrainosus, not intractable, unspecified migraine type G43.909 Migraine type: unspecified Status migrainosus presence: without status migrainosus Intractability: not intractable Generalized pruritus L29.9 Vitamin D deficiency E55.9 Right hip impingement syndrome M25.851 Painful arc syndrome of right shoulder M75.101 Primary osteoarthritis of right knee M17.11 Osteoarthritis type: primary Lumbar disc disease M51.9 Irritable bowel syndrome, unspecified type K58.9 Irritable bowel syndrome type: unspecified Constipation, unspecified constipation type K59.00 Constipation type: unspecified constipation type Osteopenia, unspecified location M85.80 Osteopenia location: unspecified Asymptomatic microscopic hematuria R31.21 Seasonal allergic rhinitis due to pollen J30.1 Allergic rhinitis trigger: pollen Allergic rhinitis seasonality: seasonal Insomnia, unspecified type G47.00 Insomnia type: unspecified Episode of recurrent major depressive disorder, unspecified depression episode severity F33.9 Depression Type: major depressive disorder Major depression recurrence: recurrent Active/Remission status: currently active Major depression episode severity: unspecified Colon cancer screening Z12.11 Assessment & Plan Assessment & Plan (1) Pure hypercholesterolemia: Code(s): E78.00 - Pure hypercholesterolemia, unspecified Category: Medical Plan: Results of her labs done last week reviewed and discussed with patient She is cautioned that her cholesterol level, particularly her LDL cholesterol, has increased significantly from previous and is now at 190 mg/dl Patient admits to poor compliance with her diet lately and was on vacation also recently Reinforced low cholesterol diet Continue Atorvastatin 40 mg QD for now Will recheck her labs and fasting lipids in 4 months for follow up (2) Benign essential hypertension: Code(s): I10 - Essential (primary) hypertension Category: Medical Plan: Reinforced low sodium diet - goal is systolic BP of at least 120 to 130 mm or less Continue Amlodipine 10 mg QD - Rx refilled (3) Elevated LFTs: Code(s): R79.89 - Other specified abnormal findings of blood chemistry Category: Medical Plan: Her serum ALT is again elevated, AST is normal and alkaline phophatase remains high Will continue to monitor her LFTs regularly Abdominal US done back in 2021 came out normal; US done back in November 2012 was also normal, with limited visualization of the tail of the pancreas due to bowel gas. There were also some right renal cysts noted incidentally Will consider repeating abdominal US if her LFTs remain elevated over the next few months (4) Hyperamylasemia: Code(s): R74.8 - Abnormal levels of other serum enzymes Category: Medical Plan: Stable - will continue to monitor her serum amylase level regularly Unclear if this has anything to do at all with her small bowel surgery (Meckel's diverticulum resection and lysis of adhesions) back in 1997 (5) Migraine: Code(s): G43.909 - Migraine, unspecified, not intractable, without status migrainosus Category: Medical Qualifiers: Migraine type: unspecified Status migrainosus presence: without status migrainosus Intractability: not intractable Qualified Code(s): G43.909 - Migraine, unspecified, not intractable, without status migrainosus Plan: Controlled, with no acute flare ups of her migraine headaches lately (6) Generalized pruritus: Code(s): L29.9 - Pruritus, unspecified Category: Medical Plan: She has been seen and evaluated by chalk extruding 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851 - Other specified joint disorders, right hip Category: Medical Plan: Patient feels that her right hip pain has improved lately with regular exercises and stretching Follow up with rheumatology as scheduled (9) Painful arc syndrome of right shoulder: Code(s): M75.101 - Unspecified rotator cuff tear or rupture of right shoulder, not specified as traumatic Category: Medical Plan: She received a cortisone injection into her shoulder from orthopedics a couple of years ago with little relief MRI of the shoulder done in August 2022 revealed (+) 1 cm bursal-sided partial tear of the supraspinatus tendon with mild to moderate associated tendinosis with NO muscle atrophy. There is also moderate acromioclavicular osteoarthritis, mild subacromial subdeltoid bursitis and minimal glenohumeral osteoarthritis S/P physical therapy with some improvement and patient continues to do the shoulder exercises on her own regularly to help manage her shoulder symptoms Follow up with orthopedics as scheduled or as needed (10) Degenerative arthritis of right knee: Code(s): M17.11 - Unilateral primary osteoarthritis, right knee Category: Medical Qualifiers: Osteoarthritis type: primary Qualified Code(s): M17.11 - Unilateral primary osteoarthritis, right knee Plan: Patient states that her right knee pain has been mostly manageable for a while now X-rays done back in March 2017 showed (+) mild arthritis changes that are similar to findings in July 2015 Follow up with orthopedics as scheduled or as needed (11) Lumbar disc disease: Comment: (+) moderate L5-S1 disc dessication with mild end plate irregularities seen on lumbar spine CT done on 11/13/2005 Code(s): M51.9 - Unspecified thoracic, thoracolumbar and lumbosacral intervertebral disc disorder Category: Medical Plan: Repeat lumbar spine x-rays done on 11/30/2022 revealed (+) mild to moderate degenerative changes at L4-L5 and L5-S1 Reinforced activity and weight-lifting restrictions to minimize aggravating her lower back (12) Irritable bowel syndrome: Code(s): K58.9 - Irritable bowel syndrome, unspecified Category: Medical Qualifiers: Irritable bowel syndrome type: unspecified Qualified Code(s): K58.9 - Irritable bowel syndrome without diarrhea Plan: Stable - follow up with GI as scheduled (13) Constipation: Code(s): K59.00 - Constipation, unspecified Category: Medical Qualifiers: Constipation type: unspecified constipation type Qualified Code(s): K59.00 - Constipation, unspecified Plan: Improved - reinforced again increased oral fluids and dietary fiber Continue Senna 8.6 mg 1 to 2 tablets QD PRN (14) Osteopenia: Code(s): M85.80 - Other specified disorders of bone density and structure, unspecified site Category: Medical Qualifiers: Osteopenia location: unspecified Qualified Code(s): M85.80 - Other specified disorders of bone density and structure, unspecified site Plan: Repeat BMD done on 08/17/2021 revealed (+) osteopenia, with an 8.0% decline in BMD in the left femur from previous Her most recent BMD done in November 2023 revealed osteopenia based on the lowest T-score value of -1.5 in the femoral neck Her BMD has improved slightly from her 2021 results, with an 8.1% increase from previous in the left femur and an 8.8% increase from previous in the AP spine Patient is encouraged to continue to exercise regularly and stay active as well as continue with her daily vitamin-D and calcium supplements Will continue to monitor her BMD regularly (15) Asymptomatic microscopic hematuria: Code(s): R31.21 - Asymptomatic microscopic hematuria Category: Medical Plan: Renal ultrasound done in July 2020 revealed (+) bilateral renal cysts, greater in the right kidney; US was otherwise normal Her recent urinalysis done a couple of weeks ago came out normal again with NO RBCs in the urine Will continue to monitor this regularly (16) Allergic rhinitis: Code(s): J30.9 - Allergic rhinitis, unspecified Category: Medical Qualifiers: Allergic rhinitis trigger: pollen Allergic rhinitis seasonality: seasonal Qualified Code(s): J30.1 - Allergic rhinitis due to pollen Plan: Continue Cetirizine 10 mg QD PRN (17) Insomnia: Code(s): G47.00 - Insomnia, unspecified Category: Medical Qualifiers: Insomnia type: unspecified Qualified Code(s): G47.00 - Insomnia, unspecified Plan: Sleep hygiene reinforced Continue Lorazepam 1 mg once a day at bedtime as needed and Trazodone 50 mg daily at bedtime as needed - states that she does not take any of these regularly as she does not want to risk developing dependence on sleep aids over time (18) Depression: Code(s): F32.9 - Major depressive disorder, single episode, unspecified Category: Medical Qualifiers: Depression Type: major depressive disorder Major depression recurrence: recurrent Active/Remission status: currently active Major depression episode severity: unspecified Qualified Code(s): F33.9 - Major depressive disorder, recurrent, unspecified Plan: Patient feels that her depression remains under control and she still does not need any intervention at this time (19) Colon cancer screening: Code(s): Z12.11 - Encounter for screening for malignant neoplasm of colon Category: Medical Plan: She is also now due for repeat colonoscopy (had colonoscopy last done with Dr. Loja in 2019) and she is requesting to have Dr Loja do the procedure again as much as possible Will try referring her back to Dr. Loja for her repeat colonoscopy Plan Follow up in 4 months Orders: Orders Comprehensive Kimberly. Panel Fast 4 Months E78.00 - Pure hypercholesterolemia, unspecified Lipase 4 Months R10.9 - Unspecified abdominal pain, R74.8 - Abnormal levels of other serum enzymes Amylase 4 Months R74.8 - Abnormal levels of other serum enzymes TSH reflex Free T4 4 Months E78.00 - Pure hypercholesterolemia, unspecified Vitamin D 25-OH Total 4 Months E55.9 - Vitamin D deficiency, unspecified Complete Blood Count Auto Diff 4 Months D64.9 - Anemia, unspecified Lipid Panel 4 Months E78.00 - Pure hypercholesterolemia, unspecified C Reactive Protein 4 Months R74.8 - Abnormal levels of other serum enzymes UA CC w/rflx Micro + Cult 4 Months R30.0 - Dysuria Referrals General Surgery Referral Z12.11 - Encounter for screening for malignant neoplasm of colon Medications: New cholecalciferol (vitamin D3) 50 mcg PO DAILY 90 caps 3RF 90 days E55.9 - Vitamin D deficiency, unspecified Changed From amlodipine 10 mg PO DAILY 90 tabs 0RF To amlodipine 10 mg PO DAILY 90 tabs 3RF 90 days Discontinued ergocalciferol (vitamin D2) Discontinued Reason: Insurance Denied 1,250 mcg PO QWEEK 90 days 13 caps 2RF E55.9 - Vitamin D deficiency, unspecified
--- OUTSIDE RECORDS SUMMARY | 2025-04-21 13:16 | XMS_ITS | Clinical Summary ---
Author Organization [facility] Address [address] [place] [address] Care Team Providers Care Compliance Assistant Name Role Phone Unavailable Primary Care Provider [...]
--- OUTSIDE RECORDS SUMMARY | 2025-04-21 13:16 | XMS_ITS | Patient Health Record ---
Author Organization [facility] Address [address] [place] [address] Care Team Providers Care Home Comfort Advisor Name Role Phone Yunier Marinelli MD Primary Care Provider Trip Pate Unavailable [phone] Reason For Referral No Information Medications Medication SIG (Take, Route, Fr equency, Duration) Notes Start Date End Date Status Lorazepam Active Blood Pressure Activ e amLODIPine Besylate Active Plan Of Treatment No Information Insurance Providers Payer Name Payer Address Payer Phone Subscriber Number Group Number Insured Name Patient Relationship to Insured Coverage Start Date Coverage End Date [facility] [address] [place] [phone] [id number] ALEJA VALENZUELA Self - patient is the insured Medical (General) History Medical History History ICD Code 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 Loja Surgical History Surgery Date(Month/Year) cholecystectomy in the surgery for a small bowel ob struction and Meckel's diverticulum in 1997 breast biopsy-benign hearing loss surgery
== END 2025-04-21 11:49 | disposition home or self-care (01) ==
LOC: HO.HMCH 10:48
PROVIDERS: PCP Internal Medicine; Visit Provider Internal Medicine
DX: E78.00 Pure hypercholesterolemia, unspecified (principal); I10 Essential (primary) hypertension; R79.89 Other specified abnormal findings of blood chemistry; R74.8 Abnormal levels of other serum enzymes; G43.909 Migraine, unspecified, not intractable, without status migrainosus; L29.9 Pruritus, unspecified; E55.9 Vitamin D deficiency, unspecified; M25.851 Other specified joint disorders, right hip; M75.101 Unspecified rotator cuff tear or rupture of right shoulder, not specified as traumatic; M17.11 Unilateral primary osteoarthritis, right knee; M51.9 Unspecified thoracic, thoracolumbar and lumbosacral intervertebral disc disorder; K58.9 Irritable bowel syndrome, unspecified; K59.00 Constipation, unspecified; M85.80 Other specified disorders of bone density and structure, unspecified site; R31.21 Asymptomatic microscopic hematuria; J30.1 Allergic rhinitis due to pollen; G47.00 Insomnia, unspecified; F33.9 Major depressive disorder, recurrent, unspecified; Z12.11 Encounter for screening for malignant neoplasm of colon

== ENCOUNTER → 2025-04-21 10:47 | Outpatient (BNVA) | payer MEDICARE, MEDICAID, SELFPAY | PROVIDERS: PCP Internal Medicine; Visit Provider Internal Medicine | DX: I10 Essential (primary) hypertension (principal); E78.00 Pure hypercholesterolemia, unspecified; R79.89 Other specified abnormal findings of blood chemistry; G43.909 Migraine, unspecified, not intractable, without status migrainosus; L29.9 Pruritus, unspecified; E55.9 Vitamin D deficiency, unspecified; M25.851 Other specified joint disorders, right hip; M17.11 Unilateral primary osteoarthritis, right knee; M51.9 Unspecified thoracic, thoracolumbar and lumbosacral intervertebral disc disorder; K58.9 Irritable bowel syndrome, unspecified; K59.00 Constipation, unspecified; M85.80 Other specified disorders of bone density and structure, unspecified site; R31.21 Asymptomatic microscopic hematuria; J30.1 Allergic rhinitis due to pollen; G47.00 Insomnia, unspecified; F33.9 Major depressive disorder, recurrent, unspecified | CPT/HCPCS: 99212 ==

== ENCOUNTER 2025-06-11 09:23 | Outpatient (AMB) | payer MEDICARE, MEDICAID, SELFPAY ==
--- NOTE | 2025-06-11 09:39 | A.OFFVIS_ITS ---
Vital Signs 06/11/25 09:45 Height 5 ft 3 in Weight 141 lb 2 oz BMI 25.0 BP 112/72 Blood Pressure Location Lt brachial Position Sitting Pulse 72 Intake Visit Reasons: Recall colonoscopy screening Intake Note: This patient presents for recall colonoscopy screening Pt c/o;regular bowel movements denies diarrhea or constipation, admits to uncontrolled gas, denies any abodminal pain or other concerns, her last colonoscopy was 04/30/2020. Puff Iron Operator Required: No Accompanied by: Self / Same As Patient Allergies No Known Allergies (No Known Allergies*) Allergy (Verified 06/11/25 09:44) HPI HPI Recall colonoscopy screening: Details: 64-year-old female referred for a follow up colonoscopy Review of her records show that her last colonoscopy was actually in 2019. She did not have any polyps that time. However, her bowel prep was suboptimal so had recommended a follow up colonoscopy in 5 years. She denies GI complaints currently. She says she feels well overall. COUNTS INCLUDE 234 BEDS AT THE [facility] Medical History Allergic rhinitis Lumbar disc disease Osteopenia ASCUS of cervix with negative high risk HPV Tinea corporis Overweight (BMI 25.0-29.9) Depression Insomnia Asymptomatic microscopic hematuria Pyuria Carpal tunnel syndrome of right wrist Calcaneal spur Irritable bowel syndrome Elevated LFTs Degenerative arthritis of right knee Constipation Vitamin D deficiency Edema of lower extremity due to peripheral venous insufficiency Hyperamylasemia Generalized pruritus Migraine Pure hypercholesterolemia Benign essential hypertension Colon cancer screening Bowel obstruction Elevated cholesterol HTN (hypertension) Surgical History Status post epidural steroid injection (~2005) History of tubal ligation History of laparotomy History of ear surgery H/O colonoscopy (~07/26/10) History of cholecystectomy Family History Father Medical history unknown Mother Hypertension Son No problems noted. Social History Housing: House Alcohol intake: never Patient Tobacco Use Status: Never used Tobacco e-Cigarette/Vaping Use: Never Used Second Hand Smoke Exposure: No service: No Current occupational status: retired Current occupation: right hand dominant Cognitive needs: No Hearing needs: No Vision needs: Yes Female Reproductive History Menstrual Age of Menarche: 11 Review of Systems Const Denies chills and Denies fever(s) Card Denies chest pain, Denies dyspnea and Denies dyspnea on exertion Resp Denies cough, Denies dyspnea and Denies dyspnea on exertion GI Denies hematochezia and Denies change in bowel habits Denies hematuria Musc Denies back pain and Denies limited range of motion Neuro Denies focal weakness and Denies convulsions Psych Denies depression and Denies mood swings Physical Exam Vital Signs: Last Vital Signs Pulse 72 06/11/25 09:45 BP 112/72 06/11/25 09:45 BMI result Body Mass Index 25.0 Const General: comfortable and no acute distress Orientation/consciousness: patient oriented x3 Neck Neck: Yes no lymphadenopathy Resp Auscultation: clear to auscultation bilaterally Cardio Rhythm: regular rhythm GI Palpation (GI): Soft to palpation, nontender and no guarding Neuro General: patient oriented x3 Assessment & Plan Assessment & Plan (1) Colon cancer screening: Code(s): Z12.11 - Encounter for screening for malignant neoplasm of colon Category: Medical Plan: I explained to her the technique of colonoscopy for screening. I reviewed the risks including but not limited to bleeding and perforation. She understands and wants to proceed Coding Level of Care Code New Pt Level 3 (88501) Diagnoses Colon cancer screening Z12.11
[2025-06-11 09:45] VITALS: BP 112/72; PULSE 72; BMI 25.0
--- OUTSIDE RECORDS SUMMARY | 2025-06-11 10:46 | XMS_ITS | Clinical Summary ---
Author Organization [facility] Address [address] [place] [address] Care Team Providers Care Shoemaking Cutter Name Role Phone Unavailable Primary Care Provider [...] - 2023-2 5 season) 2025 RSV Vaccine 50 years and old er and Patients (1 - 1-dose 75+ series) 2034 Hepatitis B Vaccines Aged Out No long er eligible based on patient's age to complete this topic
--- OUTSIDE RECORDS SUMMARY | 2025-06-11 10:46 | XMS_ITS | Patient Health Record ---
Author Organization [facility] Address [address] [place] [address] Care Team Providers Care Licensed Esthetician Name Role Phone Yunier Marinelli MD Primary Care Provider Trip Pate Unavailable [phone] Reason For Referral No Information Medications Medication SIG (Take, Route, Fr equency, Duration) Notes Start Date End Date Status Lorazepam Active Blood Pressure Activ e amLODIPine Besylate Active Plan Of Treatment No Information Insurance Providers Payer Name Payer Address Payer Phone Subscriber Number Group Number Insured Name Patient Relationship to Insured Coverage Start Date Coverage End Date [facility] [address] [place] [phone] [id number] ALEJA VALENZUELA Self - patient is the insured Medical (General) History Medical History History ICD Code 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 Loja Surgical History Surgery Date(Month/Year) cholecystectomy in the surgery for a small bowel ob struction and Meckel's diverticulum in 1997 breast biopsy-benign hearing loss surgery
== END 2025-06-11 10:06 | disposition home or self-care (01) ==
LOC: HO.HGS 09:24
PROVIDERS: PCP Internal Medicine; Visit Provider Surgery
DX: Z12.11 Encounter for screening for malignant neoplasm of colon (principal)
CPT/HCPCS: 99203

== ENCOUNTER → 2025-06-11 09:23 | Outpatient (BNVA) | payer MEDICARE, MEDICAID, SELFPAY | PROVIDERS: PCP Internal Medicine; Visit Provider Surgery | DX: Z12.11 Encounter for screening for malignant neoplasm of colon (principal) | CPT/HCPCS: 99202 ==

== ENCOUNTER 2025-07-10 06:22 | Day surgery (SDC) | payer MEDICARE, MEDICAID, SELFPAY ==
--- OUTSIDE RECORDS SUMMARY | 2025-06-17 08:31 | XMS_ITS | Clinical Summary ---
Author Organization [facility] Address [address] [place] [address] Care Team Providers Care Certified Surgical Assistant Name Role Phone Unavailable Primary Care [...]
--- OUTSIDE RECORDS SUMMARY | 2025-06-17 08:31 | XMS_ITS | Patient Health Record ---
Author Organization [facility] Address [address] [place] [address] Care Team Providers Care Environmental Consultant Name Role Phone Yunier Marinelli MD Primary Care Provider Trip Pate Unavailable [phone] Reason For Referral No Information Medications Medication SIG (Take, Route, Fr equency, Duration) Notes Start Date End Date Status Lorazepam Active Blood Pressure Activ e amLODIPine Besylate Active Social History Social History Additional Details Category Social Info Options Details Miscellaneous: Marital status: 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 Loja Surgical History Surgery Date(Month/Year) cholecystectomy in the surgery for a small bowel ob struction and Meckel's diverticulum in 1997 breast biopsy-benign hearing loss surgery
--- NOTE | 2025-07-07 14:29 | HO.ANESPROP2 ---
Documented by User: Cathi Joshi NP 07/07/25 14:30 HPI - Anesthesia Eval Consult details Narrative: 64 yr old male for ?Colonoscopy with possible Polypectomy PMFSH Active Problems Active Problems: All Active Problems (Updated 12/13/24 @ 21:44 by Yunier Marinelli MD) Allergic rhinitis (Acute) Pain of left breast (Acute) Scalp lesion (Acute) Pain of right thumb (Acute) Greater trochanteric bursitis of right hip (Acute) De Quervain's tenosynovitis, right (Acute) Right hip pain (Acute) Arthralgia (Acute) Lumbar disc disease (Acute) Painful arc syndrome of right shoulder (Acute) Right hip impingement syndrome (Acute) Impingement syndrome of right shoulder (Acute) COVID-19 (Acute) Annual physical exam (Acute) Osteopenia (Acute) Rash (Acute) Well woman exam (Acute) Overweight (BMI 25.0-29.9) (Acute) Depression (Acute) Insomnia (Acute) Asymptomatic microscopic hematuria (Acute) Pyuria (Acute) Carpal tunnel syndrome of right wrist (Acute) Calcaneal spur (Acute) Irritable bowel syndrome (Acute) Elevated LFTs (Acute) Degenerative arthritis of right knee (Acute) Constipation (Acute) Vitamin D deficiency (Acute) Edema of lower extremity due to peripheral venous insufficiency (Acute) Hyperamylasemia (Acute) Generalized pruritus (Acute) Migraine (Acute) Pure hypercholesterolemia (Acute) Benign essential hypertension (Acute) Colon cancer screening (Acute) Past Medical History Medical History Allergic rhinitis Lumbar disc disease Osteopenia ASCUS of cervix with negative high risk HPV Tinea corporis Overweight (BMI 25.0-29.9) Depression Insomnia Asymptomatic microscopic hematuria Pyuria Carpal tunnel syndrome of right wrist Calcaneal spur Irritable bowel syndrome Elevated LFTs Degenerative arthritis of right knee Constipation Vitamin D deficiency Edema of lower extremity due to peripheral venous insufficiency Hyperamylasemia Generalized pruritus Migraine Pure hypercholesterolemia Benign essential hypertension Colon cancer screening Bowel obstruction Elevated cholesterol HTN (hypertension) Family History Family History Father Medical history unknown Mother Hypertension Son No problems noted. Surgical History Surgical History Status post epidural steroid injection (~2005) History of tubal ligation History of laparotomy History of ear surgery H/O colonoscopy (~07/26/10) History of cholecystectomy Social History Social History Housing: House Are you a primary hearing care practitioner to a significant other at home: No Do you presently have visiting nurse or other home services: No Alcohol intake: never Patient Tobacco Use Status: Never used Tobacco e-Cigarette/Vaping Use: Never Used Second Hand Smoke Exposure: No Have you been hit, kicked, punched, or otherwise hurt by someone within the past year? If so, by whom?: No Are you DNR?: No Advance Directives: No Advance Directives Information Provided: Yes service: No Current occupational status: retired Current occupation: right hand dominant Cognitive needs: No Hearing needs: No Vision needs: Yes Meds Allergies Allergy/AdvReac Type Severity Reaction Status Date / Time No Known Allergies (No Known Allergy Verified 07/10/25 07:05 Allergies*) Exam Pertinent Lab Results Pertinent Lab Results: Laboratory Tests 04/14/25 06:13 WBC 5.6 RBC 5.01 Hgb 14.1 Hct 42.8 Plt Count 328 Sodium 143 Potassium 4.2 BUN 10 Creatinine 0.80 Documented by User: Melissa Jarrell MD 07/10/25 07:37 [facility] Past Medical History Medical History Allergic rhinitis Lumbar disc disease Osteopenia ASCUS of cervix with negative high risk HPV Tinea corporis Overweight (BMI 25.0-29.9) Depression Insomnia Asymptomatic microscopic hematuria Pyuria Carpal tunnel syndrome of right wrist Calcaneal spur Irritable bowel syndrome Elevated LFTs Degenerative arthritis of right knee Constipation Vitamin D deficiency Edema of lower extremity due to peripheral venous insufficiency Hyperamylasemia Generalized pruritus Migraine Pure hypercholesterolemia Benign essential hypertension Colon cancer screening Bowel obstruction Elevated cholesterol HTN (hypertension) Family History Family History Father Medical history unknown Mother Hypertension Son No problems noted. Surgical History Surgical History Status post epidural steroid injection (~2005) History of tubal ligation History of laparotomy History of ear surgery H/O colonoscopy (~07/26/10) History of cholecystectomy History of Problems with Anesthesia: No Social History Social History Housing: House Are you a primary hearing care practitioner to a significant other at home: No Do you presently have visiting nurse or other home services: No Alcohol intake: never Patient Tobacco Use Status: Never used Tobacco e-Cigarette/Vaping Use: Never Used Second Hand Smoke Exposure: No Have you been hit, kicked, punched, or otherwise hurt by someone within the past year? If so, by whom?: No Are you DNR?: No Advance Directives: No Advance Directives Information Provided: Yes service: No Current occupational status: retired Current occupation: right hand dominant Cognitive needs: No Hearing needs: No Vision needs: Yes Meds Allergies Allergy/AdvReac Type Severity Reaction Status Date / Time No Known Allergies (No Known Allergy Verified 07/10/25 07:05 Allergies*) Exam Airway Mallampati Class: II TM Dist: >3cm Neck ROM: Full Partial: Upper Loose/Missing/Broken Teeth: Yes and Upper Heart: RRR Lungs: CTA Assessment and Plan Assessment Anesthesia Assessment: Anesthesia Plan Discussed and Chart Reviewed Final Anesthetic Review History of Problems with Anesthesia: No NPO: Yes ASA Class: II Final Preanesthetic Review: Meds/Allgs Chart Reviewed, Consent Obtained/Reviewed and Anes Risks/Benef Reviewed Patient Risk: Low Procedure Risk: Low Anesthetic Plan Anesthetic Plan: MAC: Disposition: Standard PACU
[2025-07-08 09:44] VITALS: BMI 25.0
[2025-07-10 06:39] VITALS: BMI 25.0
[2025-07-10 07:04] VITALS: BP 108/73; PULSE 80; RESP 18; TEMP 36.6; O2SAT 96
[2025-07-10] MEDS: Lactated Ringers 1,000 ML 100 ML IVCONT (07:04)
--- NOTE | 2025-07-10 07:19 | MHC.SHP ---
Pre-Procedural Eval Section A - 24 Hr Update-Section A only Date of Service: 07/10/25 The patient is an INPATIENT: No Changes since office visit: No Cold of Flu in the past 2 weeks, No New Medical Problems, No Changes in Medication and No Patient answered all questions The patient has been examined within 24 hours of the surgical procedure. The History & Physical has been completed within 30 days and I have reviewed it.: Yes Section B - Complete if H&P > 30 days Chief Complaint: screening Allergies: Allergies Allergy/AdvReac Type Severity Reaction Status Date / Time No Known Allergies (No Known Allergy Verified 07/10/25 07:05 Allergies*) Plan I have reviewed the history and physical and performed a pertinent physical examination on my patient. No changes have occurred unless specified. Time Spent With Patient Time: Total time managing care of this patient today ____ minutes.
[2025-07-10 08:10] VITALS: BP 104/66; PULSE 66; RESP 18; TEMP 36.3; O2SAT 99
--- NOTE | 2025-07-10 08:15 | P.OP_ITS ---
Operative Note Operative Note Date of Service: 07/10/25 Narrative: Preop diagnosis: Colon cancer screening Postop diagnosis: Internal and external hemorrhoids otherwise normal colonoscopy findings Procedure: Colonoscopy Surgeon: Mann Loja MD The patient is a 64 year old female here for screening colonoscopy. She had a colonoscopy 5 years ago but with suboptimal bowel prep. She understood the technique of the planned procedure as well as the risks, benefits, and alternatives. The patient was brought to the operating room and placed in left lateral decubitus position under monitored anesthesia care. A surgical time-out was done. A full digital rectal exam was done and this did not reveal any significant anal lesions except for prominent external hemorrhoids. The tip of the Olympus colonoscope was gently introduced through the anal orifice advanced with insufflation all the way to the cecum. The cecum was intubated. The cecum was identified by visualization of the ileocecal valve as well as the appendiceal orifice. The cecal mucosa was unremarkable. The scope was gradually withdrawn with careful examination of the entire colonic mucosa being done with scope withdrawal. The patient had adequate bowel prep so it was unlikely that any lesion may have been missed. The rectum was reached and there were no lesions seen. The anal canal was unremarkable although she did have prominent internal external hemorrhoids. The scope was then withdrawn comp letely with desufflation The patient tolerated procedure well. There were no immediate complications. She falls at average risk for colon cancer. Her next colonoscopy may be in the next 10 years. Withdrawal time was 11 minutes.
[2025-07-10 08:26] VITALS: BP 115/76; PULSE 65; RESP 14; TEMP 36.3; O2SAT 99
== END 2025-07-10 08:56 | disposition home or self-care (01) ==
PROVIDERS: PCP Internal Medicine; Visit Provider Surgery
PROC: 0DBE8ZZ Excision of Large Intestine, Via Natural or Artificial Opening Endoscopic (ICD-10-PCS; CPT G0121; principal; 2025-07-10 07:30)
DX: Z12.11 Encounter for screening for malignant neoplasm of colon (principal); K64.4 Residual hemorrhoidal skin tags; K64.8 Other hemorrhoids
CPT/HCPCS: G0121; J2003; J2704

== ENCOUNTER → 2025-07-10 06:22 | Outpatient (BNV) | payer MEDICARE, MEDICAID, SELFPAY | PROVIDERS: PCP Internal Medicine; Visit Provider Surgery | DX: Z12.11 Encounter for screening for malignant neoplasm of colon (principal); K64.8 Other hemorrhoids | CPT/HCPCS: G0121 ==